=== PATIENT | female | born 1940 | race Caucasian/White ===

== ENCOUNTER 2023-09-25 00:46 | Inpatient (IN) | payer MEDICARE ==
[2023-09-25] MEDS ORDERED: ENALAPRILAT 1.25 MG/ML 1 ML VIAL IVP STA (00:56)
[2023-09-25] MEDS ORDERED: MORPHINE SULFATE 2 MG/ML SYRINGE IVP STA (00:56)
[2023-09-25] MEDS ORDERED: SODIUM CHLORIDE 0.9% 1,000 ML IV STA (00:56)
[2023-09-25] MEDS ORDERED: IPRATROPIUM-ALBUTEROL 3 ML NEB INHALATION STA (00:56)
--- NOTE | 2023-09-25 00:58 | ED ---
SOB HPI - General Chief Complaint: Shortness of Breath Stated Complaint: Chest pain, SOB Time Seen by Provider: 09/25/23 00:48 Source: EMS, RN notes reviewed, old records reviewed, Caregiver Mode of arrival: EMS Limitations: altered mental status - History of Present Illness Initial Comments: This is a 3-year-old female DF for severe and significant shortness of breath. Said about 2 hours prior to arrival patient presents with persistent shortness of breath here in the emergency department patient is unable to provide history history obtained by EMS and patient's family 72 hours prior to arrival patient shortness of breath surgery become severe as she then began to have decreasing mental status MD Complaint: shortness of breath, anxiety -: hour(s) (2) Severity: severe Severity scale (1-10): 10 Quality: dull Consistency: constant Improves With: nothing Worsens With: nothing Known History Of: congestive heart failure Context: recent URI, recent illness Associated Symptoms: chest pain Treatments Prior to Arrival: none - Related Data Home Medications Medication Instructions Recorded Confirmed Acetaminophen Tab [Tylenol Tab] 1,000 mg PO TID 09/25/23 09/25/23 Bumetanide [Bumex] 1 mg PO DAILY 09/25/23 09/25/23 Fish Oil(Unknown Dose) 1 cap PO DAILY 09/25/23 09/25/23 Gabapentin 600 mg PO TID 09/25/23 09/25/23 Potassium Chloride ER [K-Dur 10] 10 meq PO BID 09/25/23 09/25/23 Vitamin D(Unknown Dose) 1 tab PO DAILY 09/25/23 09/25/23 carvediloL [Coreg] 25 mg PO BID 09/25/23 09/25/23 lisinopriL [Prinivil] 5 mg PO DAILY PRN 09/25/23 09/25/23 metOLazone [Zaroxolyn] 2.5 mg PO MOWEFR 09/25/23 09/25/23 Allergies Allergy/AdvReac Type Severity Reaction Status Date / Time duloxetine [From Cymbalta] AdvReac Hallucinati Verified 09/25/23 15:06 ons Review of Systems ROS Statement: Those systems with pertinent positive or pertinent negative responses have been documented in the HPI. ROS Other: All systems not noted in ROS Statement are negative. Past Medical History Past Medical History: Hypertension General Exam Limitations: altered mental status General appearance: alert, anxious, in distress Head exam: Present: atraumatic, normocephalic, normal inspection Eye exam: Present: normal appearance, PERRL, EOMI. Absent: scleral icterus, conjunctival injection, periorbital swelling ENT exam: Present: normal exam, mucous membranes moist Neck exam: Present: normal inspection. Absent: tenderness, meningismus, lymphadenopathy Respiratory exam: Present: respiratory distress, wheezes, accessory muscle use, decreased breath sounds, prolonged expiratory. Absent: rales, rhonchi, stridor Cardiovascular Exam: Present: tachycardia, irregular rhythm, normal heart sounds. Absent: systolic murmur, diastolic murmur, rubs, gallop, clicks GI/Abdominal exam: Present: soft, normal bowel sounds. Absent: distended, tenderness, guarding, rebound, rigid Extremities exam: Present: normal inspection, full ROM, normal capillary refill. Absent: tenderness, pedal edema, joint swelling, calf tenderness Back exam: Present: normal inspection Neurological exam: Present: alert, oriented X3, CN II-XII intact Psychiatric exam: Present: normal affect, normal mood Skin exam: Present: warm, dry, intact, normal color. Absent: rash Course Vital Signs 09/25/23 09/25/23 09/25/23 00:49 01:00 01:13 Temperature Pulse Rate 140 H 122 H Respiratory 33 H 25 H Rate Blood Pressure 194/102 170/110 O2 Sat by Pulse 99 100 Oximetry Fraction of 100 Inspired Oxygen (FIO2) 09/25/23 09/25/23 09/25/23 01:16 01:37 01:48 Temperature Pulse Rate 106 H 94 89 Respiratory 25 H Rate Blood Pressure 146/92 O2 Sat by Pulse 100 Oximetry Fraction of Inspired Oxygen (FIO2) 09/25/23 09/25/23 09/25/23 02:09 02:49 03:16 Temperature Pulse Rate 91 75 81 Respiratory 20 22 Rate Blood Pressure 83/56 95/55 96/62 O2 Sat by Pulse 99 100 Oximetry Fraction of Inspired Oxygen (FIO2) 09/25/23 09/25/23 09/25/23 04:00 06:00 07:23 Temperature Pulse Rate 71 75 67 Respiratory 18 18 Rate Blood Pressure 116/77 106/72 O2 Sat by Pulse 100 100 Oximetry Fraction of 80 Inspired Oxygen (FIO2) 01/04/1109/25/23 09/25/23 07:34 08:45 09:32 Temperature 97.4 F L Pulse Rate 65 71 Respiratory 20 Rate Blood Pressure 112/82 O2 Sat by Pulse 98 Oximetry Fraction of 60 Inspired Oxygen (FIO2) 09/25/23 09/25/23 09/25/23 10:05 10:34 11:05 Temperature Pulse Rate 64 71 67 Respiratory 18 20 12 Rate Blood Pressure 114/77 120/62 127/69 O2 Sat by Pulse 100 100 100 Oximetry Fraction of Inspired Oxygen (FIO2) 09/25/23 09/25/23 09/25/23 11:29 11:39 12:00 Temperature Pulse Rate 75 71 62 Respiratory 14 Rate Blood Pressure 129/89 O2 Sat by Pulse 99 Oximetry Fraction of 40 Inspired Oxygen (FIO2) 09/25/23 09/25/23 09/25/23 12:45 13:19 13:20 Temperature 97.0 F L Pulse Rate 83 62 Respiratory 12 17 Rate Blood Pressure 130/77 114/69 O2 Sat by Pulse 98 96 98 Oximetry Fraction of Inspired Oxygen (FIO2) 09/25/23 09/25/23 09/25/23 14:18 15:28 15:30 Temperature 97.4 F L Pulse Rate 74 72 86 Respiratory 18 16 Rate Blood Pressure 127/88 124/71 O2 Sat by Pulse 95 92 L Oximetry Fraction of Inspired Oxygen (FIO2) 09/25/23 09/25/23 09/25/23 15:44 16:15 17:13 Temperature 97.8 F Pulse Rate 76 72 93 Respiratory 16 16 Rate Blood Pressure 103/70 128/90 O2 Sat by Pulse 96 96 Oximetry Fraction of Inspired Oxygen (FIO2) 09/25/23 09/25/23 09/25/23 18:20 19:24 20:25 Temperature 97.9 F Pulse Rate 84 89 81 Respiratory 17 17 16 Rate Blood Pressure 122/61 134/98 116/69 O2 Sat by Pulse 97 97 96 Oximetry Fraction of Inspired Oxygen (FIO2) 09/25/23 09/25/23 09/25/23 21:28 22:52 23:35 Temperature Pulse Rate 74 87 92 Respiratory 17 18 Rate Blood Pressure 115/80 112/71 O2 Sat by Pulse Oximetry Fraction of Inspired Oxygen (FIO2) 09/25/23 09/26/23 09/26/23 23:57 00:08 01:53 Temperature Pulse Rate 79 65 108 H Respiratory 19 Rate Blood Pressure 99/60 O2 Sat by Pulse Oximetry Fraction of Inspired Oxygen (FIO2) 09/26/23 09/26/23 09/26/23 03:08 04:04 04:22 Temperature Pulse Rate 103 H 82 95 Respiratory 19 19 Rate Blood Pressure 116/81 124/70 O2 Sat by Pulse 97 97 Oximetry Fraction of Inspired Oxygen (FIO2) 09/26/23 09/26/23 09/26/23 04:34 05:44 06:28 Temperature 97.3 F L Pulse Rate 88 91 95 Respiratory 19 20 Rate Blood Pressure 123/83 136/80 O2 Sat by Pulse 100 Oximetry Fraction of Inspired Oxygen (FIO2) 09/26/23 09/26/23 09/26/23 08:30 08:43 08:52 Temperature 97.7 F Pulse Rate 92 91 94 Respiratory 20 Rate Blood Pressure 122/68 O2 Sat by Pulse 96 96 Oximetry Fraction of Inspired Oxygen (FIO2) 09/26/23 09/26/23 09/26/23 11:10 12:04 12:14 Temperature Pulse Rate 93 89 91 Respiratory 18 Rate Blood Pressure 135/78 O2 Sat by Pulse 98 Oximetry Fraction of Inspired Oxygen (FIO2) 09/26/23 09/26/23 09/26/23 14:06 15:01 15:15 Temperature Pulse Rate 83 97 97 Respiratory 20 Rate Blood Pressure 133/51 O2 Sat by Pulse 93 L Oximetry Fraction of Inspired Oxygen (FIO2) 09/26/23 16:38 Temperature 98.2 F Pulse Rate 101 H Respiratory 20 Rate Blood Pressure 111/90 O2 Sat by Pulse 94 L Oximetry Fraction of Inspired Oxygen (FIO2) - Reevaluation(s) Reevaluation #1: 09/25/23 02:46 medical record is reviewed Reevaluation #2: 09/25/23 02:46 Significant improvement on BiPAP with movement and respirations here in the ER Reevaluation #3: 09/25/23 02:46 Patient will maintain on BiPAP Reevaluation #4: 09/25/23 02:46 Was pt. sent in by a medical professional or institution (, PA, CERTIFIED ADDICTION COUNSELOR, urgent care, hospital, or fpc...) When possible be specific @ -no Did you speak to anyone other than the patient for history (EMS, parent, family, police, friend...)? What history was obtained from this source @ -no Did you review nursing and triage notes (agree or disagree)? Why? @ -agree Are old charts reviewed (outside hosp., previous admission, EMS record, old EKG, old radiological studies, urgent care reports/EKG's, fpc records)? Report findings @ -yes Differential Diagnosis (chest pain, altered mental status, abdominal pain women, abdominal pain men, vaginal bleeding, weakness, fever, dyspnea, syncope, headache, dizziness, GI bleed, back pain, seizure, CVA, palpatations, mental health, musculoskeletal)? @ -prior EKG interpreted by me (3pts min.). @ -yes X-rays interpreted by me (1pt min.). @ -yes positive for pulmonary edema CT interpreted by me (1pt min.). @ -no U/S interpreted by me (1pt. min.). @ -no What testing was considered but not performed or refused? (CT, X-rays, U/S, labs)? Why? @ -none What meds were considered but not given or refused? Why? @ -none Did you discuss the management of the patient with other professionals (professionals i.e. , PA, CERTIFIED ADDICTION COUNSELOR, lab, RT, psych nurse, social science research assistant, compliance nurse, teacher, college service officer, manager rn case)? Give summary @ -no Was smoking cessation discussed for >3mins.? @ -no Was critical care preformed (if so, how long)? @ -yes31 Were there social determinants of health that impacted care today? How? (Homelessness, low income, unemployed, alcoholism, drug addiction, transportation, low edu. Level, literacy, decrease access to med. care, shelter, rehab)? @ -none Was there de-escalation of care discussed even if they declined (Discuss DNR or withdrawal of care, Hospice)? DNR status @ -no What co-morbidities impacted this encounter? (DM, HTN, Smoking, COPD, CAD, Cancer, CVA, ARF, Chemo, Hep., AIDS, mental health diagnosis, sleep apnea, morbid obesity)? @ -none Was patient admitted / discharged? Hospital course, mention meds given and route, prescriptions, significant lab abnormalities, going to OR and other pertinent info. @ - 83 female to the ED c.o ams, sob, HTN, weakness of sudden onet tonight, improved BP w meds and on BIPAP, ok for admission. Admitted Undiagnosed new problem with uncertain prognosis? @ -no Drug Therapy requiring intensive monitoring for toxicity (Heparin, Nitro, Insulin, Cardizem)? @ -no Were any procedures done? @ -no Diagnosis/symptom? @ -Acute hypertensive emergency with hypoxia atrial fibrillation with RVR with respiratory failure Acute, or Chronic, or Acute on Chronic? @ -Acute Uncomplicated (without systemic symptoms) or Complicated (systemic symptoms)? @ -Complicated Side effects of treatment? @ -no Exacerbation, Progression, or Severe Exacerbation? @ -exacerbation Poses a threat to life or bodily function? How? (Chest pain, USA, NM, pneumonia, PE, COPD, DKA, ARF, appy, cholecystitis, CVA, Diverticulitis, Homicidal, Suicidal, threat to staff... and all critical care pts) @ -yes Reevaluation #5: 09/25/23 02:46 Differential Dyspnea: Coronary syndrome, arrhythmia, tamponade, asthma, COPD, pulmonary embolism, pneumonia, pneumothorax, pulmonary effusion, anaphylaxis, diabetic ketoacidosis, flailed chest, pulmonary contusion, diaphragmatic rupture, anemia, neuromuscular, this is not meant to be an all-inclusive list. - Consultations Consultation #1: Spoke with sound who agrees to admit this patient Medical Decision Making - Medical Decision Making 83 female to the ED c.o ams, sob, HTN, weakness of sudden onset tonight, questionable atrial fibrillation with RVR, consult cardiology, improved BP w meds and on BIPAP, ok for admission. - Lab Data Result diagrams: 09/29/23 08:22 10/03/23 06:48 Lab Results 09/25/23 09/25/23 09/25/23 Range/Units 00:53 00:53 00:53 WBC 12.3 H (3.8-10.6) k/uL RBC 3.98 (3.80-5.40) m/uL Hgb 12.6 (11.4-16.0) gm/dL Hct 40.1 (34.0-46.0) % MCV 100.9 H (80.0-100.0) fL MCH 31.7 (25.0-35.0) pg MCHC 31.5 (31.0-37.0) g/dL RDW 13.5 (11.5-15.5) % Plt Count 295 (150-450) k/uL MPV 8.2 Neutrophils % 75 % Lymphocytes % 16 % Monocytes % 5 % Eosinophils % 2 % Basophils % 1 % Neutrophils # 9.3 H (1.3-7.7) k/uL Lymphocytes # 1.9 (1.0-4.8) k/uL Monocytes # 0.6 (0-1.0) k/uL Eosinophils # 0.2 (0-0.7) k/uL Basophils # 0.1 (0-0.2) k/uL Hypochromasia Marked PT 11.1 (10.0-12.5) sec INR 1.0 (<1.2) APTT 20.7 L (22.0-30.0) sec Sodium 140 (137-145) mmol/L Potassium 4.9 (3.5-5.1) mmol/L Chloride 104 (98-107) mmol/L Carbon Dioxide 27 (22-30) mmol/L Anion Gap 9 mmol/L BUN 21 H (7-17) mg/dL Creatinine 0.83 (0.52-1.04) mg/dL Est GFR (CKD-EPI)AfAm 76 (>60 ml/min/1.73 sqM) Est GFR (CKD-EPI)NonAf 66 (>60 ml/min/1.73 sqM) Glucose 209 H (74-99) mg/dL POC Glucose (mg/dL) (70-110) mg/dL POC Glu [employer] ID Plasma Lactic Acid Adrian (0.7-2.0) mmol/L Calcium 8.8 (8.4-10.2) mg/dL Magnesium 2.1 (1.6-2.3) mg/dL Total Bilirubin 0.7 (0.2-1.3) mg/dL AST 32 (14-36) U/L ALT 31 (4-34) U/L Alkaline Phosphatase 71 (38-126) U/L Troponin I (0.000-0.034) ng/mL NT-Pro-B Natriuret Pep 7180 pg/mL Total Protein 6.8 (6.3-8.2) g/dL Albumin 3.9 (3.5-5.0) g/dL 01/07/24 01/07/24 01/07/24 Range/Units 00:53 00:53 01:13 WBC (3.8-10.6) k/uL RBC (3.80-5.40) m/uL Hgb (11.4-16.0) gm/dL Hct (34.0-46.0) % MCV (80.0-100.0) fL MCH (25.0-35.0) pg MCHC (31.0-37.0) g/dL RDW (11.5-15.5) % Plt Count (150-450) k/uL MPV Neutrophils % % Lymphocytes % % Monocytes % % Eosinophils % % Basophils % % Neutrophils # (1.3-7.7) k/uL Lymphocytes # (1.0-4.8) k/uL Monocytes # (0-1.0) k/uL Eosinophils # (0-0.7) k/uL Basophils # (0-0.2) k/uL Hypochromasia PT (10.0-12.5) sec INR (<1.2) APTT (22.0-30.0) sec Sodium (137-145) mmol/L Potassium (3.5-5.1) mmol/L Chloride (98-107) mmol/L Carbon Dioxide (22-30) mmol/L Anion Gap mmol/L BUN (7-17) mg/dL Creatinine (0.52-1.04) mg/dL Est GFR (CKD-EPI)AfAm (>60 ml/min/1.73 sqM) Est GFR (CKD-EPI)NonAf (>60 ml/min/1.73 sqM) Glucose (74-99) mg/dL POC Glucose (mg/dL) 203 H (70-110) mg/dL POC Glu [employer]fitter ID Ankush Jarrell Plasma Lactic Acid Adrian 1.5 (0.7-2.0) mmol/L Calcium (8.4-10.2) mg/dL Magnesium (1.6-2.3) mg/dL Total Bilirubin (0.2-1.3) mg/dL AST (14-36) U/L ALT (4-34) U/L Alkaline Phosphatase (38-126) U/L Troponin I 0.014 (0.000-0.034) ng/mL NT-Pro-B Natriuret Pep pg/mL Total Protein (6.3-8.2) g/dL Albumin (3.5-5.0) g/dL - EKG Data -: EKG Interpreted by Me (EKG is uncertain 129 tachycardic QRS 161 QTc 417) - Radiology Data Radiology results: report reviewed (CXR is positive for CHD and Pulmonary edema), image reviewed Critical Care Time Critical Care Time: Yes Total Critical Care Time: 31 Disposition Clinical Impression: Congestive heart failure, Acute pulmonary edema, Hypertensive emergency, Acute respiratory failure, Hypoxia, Systolic congestive heart failure Disposition: ADMITTED IP TO THIS [facility] Condition: Critical Is patient prescribed a controlled substance at d/c from ED?: No Time of Disposition: 02:40
[2023-09-25 01:15] LABS: Glucose,Whole Blood 203 mg/dL (70-110)
[2023-09-25 01:43] LABS: ALT 31 U/L (4-34); AST 32 U/L (14-36); African American GFR (CKD) 76 (>60 ml/min/1.73 sqM); Albumin 3.9 g/dL (3.5-5.0); Alkaline Phosphatase 71 U/L (38-126); Anion Gap 9 mmol/L; Basophils # (A) 0.1 k/uL (0-0.2); Basophils % (A) 1 %; Blood Urea Nitrogen 21 mg/dL (7-17); Calcium 8.8 mg/dL (8.4-10.2); Carbon Dioxide 27 mmol/L (22-30); Chloride 104 mmol/L (98-107); Eosinophils # (A) 0.2 k/uL (0-0.7); Eosinophils % (A) 2 %; Glucose 209 mg/dL (74-99); HCT 40.1 % (34.0-46.0); HGB 12.6 gm/dL (11.4-16.0); Hypochromasia Marked; Lymphocytes # (A) 1.9 k/uL (1.0-4.8); Lymphocytes % (A) 16 %; MCH 31.7 pg (25.0-35.0); MCHC 31.5 g/dL (31.0-37.0); MCV 100.9 fL (80.0-100.0); Magnesium 2.1 mg/dL (1.6-2.3); Mean Platelet Volume 8.2; Monocytes # (A) 0.6 k/uL (0-1.0); Monocytes % (A) 5 %; Neutrophils # (A) 9.3 k/uL (1.3-7.7); Neutrophils % (A) 75 %; Non-African American GFR(CKD) 66 (>60 ml/min/1.73 sqM); Platelet Count 295 k/uL (150-450); Potassium 4.9 mmol/L (3.5-5.1); RBC 3.98 m/uL (3.80-5.40); RDW 13.5 % (11.5-15.5); Sodium 140 mmol/L (137-145); Total Bilirubin 0.7 mg/dL (0.2-1.3); Total Protein 6.8 g/dL (6.3-8.2); WBC 12.3 k/uL (3.8-10.6)
[2023-09-25 01:52] LABS: NT-Pro-B-Type Natriuretic Pept 7180 pg/mL
--- NOTE | 2023-09-25 02:05 | XR ---
EXAM: XR Chest, 1 View CLINICAL HISTORY: ITS.REASON XR Reason: sob TECHNIQUE: Frontal view of the chest. COMPARISON: No relevant prior studies available. FINDINGS: Lungs: Bilateral interstitial opacities. Pleural space: Small pleural effusions. No pneumothorax. Heart: Cardiomegaly and vascular congestion. Bones/joints: No acute fracture. No dislocation. IMPRESSION: 1. Findings suggestive of congestive heart failure. There is cardiomegaly, vascular congestion, and bilateral interstitial opacities suggesting pulmonary edema. 2. Small pleural effusions bilaterally.
[2023-09-25 02:14] LABS: Prothrombin Time 11.1 sec (10.0-12.5)
[2023-09-25 02:20] LABS: Partial Thromboplastin Time 20.7 sec (22.0-30.0)
[2023-09-25] MEDS ORDERED: NALOXONE 0.4 MG/ML 1 ML VIAL IV PRN (02:34)
[2023-09-25] MEDS ORDERED: FUROSEMIDE 10 MG/ML 4 ML VIAL IV SCH (02:45)
[2023-09-25] MEDS: MORPHINE SULFATE 4 MG/ML SYRINGE IV PRN ×4 (03:17→23:36)
[2023-09-25] MEDS ORDERED: LORazepam 2 MG/ML INJ IV STA (04:12)
[2023-09-25] MEDS ORDERED: HEPARIN SODIUM 1,000 UN/ML (10ML VL) IV ONE (05:02)
[2023-09-25] MEDS ORDERED: HEPARIN SODIUM 1,000 UN/ML (10ML VL) IV PRN ×2 (05:02→13:49)
[2023-09-25] MEDS ORDERED: LORazepam 2 MG/ML INJ IV PRN (05:13)
--- NOTE | 2023-09-25 05:14 | P.HPIM ---
History of Present Illness H&P Date: 09/25/23 Chief Complaint: shortness of breath 83 year old female with Hypertension , CHF unknown EF patient unable to provide any meaningful history due to agitation and confusion history obtained by talking to manisha at bedside patient was at her baseline status of health up until 2 days ago , when she started having some SOB , unknown if there was orthpnea or PNDs. however, today , the patient moved to new house to live with her niece, when suddenly started having severe SOB about 2 hours prior to arrivl to the ED. no reported fever, worsening cough from baseline, bleeding , chest pain , abd pain , nausea or vomiting per niece, the patient is compliant with her meds, and diuretics. however when she went home today , she found her struggling with breathing and drenched with sweat. she does have chronic bilateral leg edema which is chronic . unknown weight changes, or if any increase water retention upon arrival to the ED she was noted to have elevated blood pressure , and based on CXR findings, she was suspected to be having hypertensive emergency she was given diurectics and placed on BIpap review of systems unable to obtain on exam Constitutional: agitated confused, on bipap Eyes: Anicteric sclerae, moist conjunctiva, resists opening eyes, both pupils are round and equal ENMT: NC/AT Lungs: decrease breath sounds at lung bases with rhonci on Bi[place], agitated Cardiovascular: Heart regular in rate and rhythm, No murmurs, gallops, or rubs +2 bilateral peripheral edema Abdominal: Soft Nontender, no guarding, rebound or rigidity Abdomen moving with respiration Normoactive bowel sounds No hepatomegaly, No splenomegaly Extremities: No digital cyanosis No clubbing Pedal pulses intact and symmetrical Radial pulses intact and symmetrical No calf tenderness Psychiatric: confused awake, agitated, uncooperative Neuro unable to perform , resists care Past Medical History Past Medical History: Hypertension Medications and Allergies Allergies Allergy/AdvReac Type Severity Reaction Status Date / Time No Known Allergies Allergy Verified 09/25/23 00:53 Physical Exam Vitals: Vital Signs Pulse Resp BP Pulse Ox FiO2 09/25/23 03:16 81 96/62 09/25/23 02:49 75 22 95/55 100 09/25/23 02:09 91 20 83/56 99 09/25/23 01:48 89 09/25/23 01:37 94 09/25/23 01:16 106 H 25 H 146/92 100 09/25/23 01:13 122 H 25 H 170/110 100 09/25/23 01:00 100 09/25/23 00:49 140 H 33 H 194/102 99 Intake and Output 09/24/23 09/24/23 09/25/23 14:59 22:59 06:59 Other: Weight 113.398 kg Results CBC & Chem 7: 09/25/23 00:53 09/25/23 00:53 Labs: Abnormal Lab Results - Last 24 Hours (Table) 09/25/23 09/25/23 09/25/23 Range/Units 00:53 00:53 00:53 WBC 12.3 H (3.8-10.6) k/uL MCV 100.9 H (80.0-100.0) fL Neutrophils # 9.3 H (1.3-7.7) k/uL APTT 20.7 L (22.0-30.0) sec BUN 21 H (7-17) mg/dL Glucose 209 H (74-99) mg/dL POC Glucose (mg/dL) (70-110) mg/dL 09/25/23 Range/Units 01:13 WBC (3.8-10.6) k/uL MCV (80.0-100.0) fL Neutrophils # (1.3-7.7) k/uL APTT (22.0-30.0) sec BUN (7-17) mg/dL Glucose (74-99) mg/dL POC Glucose (mg/dL) 203 H (70-110) mg/dL Assessment and Plan Assessment: 83 year old female with hypertension , CHF unknown LVEF, coming in due to sudden SOB, profuse sweating, found to have elevated BP and HR,I discussed the case with eD doc and I accepted the admission for pulmonary edema due to underlying CHF, hypertensive emergency , rule out ACS. with anticipated length of stay > 2 midnights acute metabolic encephalopathy pulmonary edema secondary to hypertensive emergency vs acute on chronic chf exacerbation NSTEMI rule out ACS EKG showing bigeminy , no acute ST changes photo journalist trend trops elevated BNP 7180 trops 0.014 --> 0.07 cardiology consult heparin gtt for possible ACS bipap support IV diuresis with lasix 40 mg IVP Q8hr daily weight fall precautions ativan prn for agitation 0.5 mgIVP TID patient received enalapril one time dose in the ED , currently BP is borderline low normal , continue to monitor verify home meds check echo Na 140, K 4.9 unremarkable BUN 21 cr 0.83 WBC 12, Hgb 12.6 Code status DNR DVT PPX on heparin gtt for possible NSTEMI protonix IVP 40 mg daily
[2023-09-25] MEDS ORDERED: HEPARIN SOD,PORK IN 0.45% NACL 25,000 UNIT in 0.45% NACL 1 250ML.BAG IV SCH (05:15)
[2023-09-25] MEDS: IPRATROPIUM-ALBUTEROL 3 ML NEB INHALATION SCH ×6 (05:58→23:57)
[2023-09-25 08:13] LABS: Basophils % (A) 0 %; Eosinophils % (A) 0 %; HCT 36.6 % (34.0-46.0); HGB 11.2 gm/dL (11.4-16.0); Hypochromasia Marked; Lymphocytes # (A) 0.9 k/uL (1.0-4.8); Lymphocytes % (A) 7 %; MCH 31.5 pg (25.0-35.0); MCHC 30.7 g/dL (31.0-37.0); MCV 102.8 fL (80.0-100.0); Macrocytosis Slight; Mean Platelet Volume 8.9; Monocytes # (A) 0.8 k/uL (0-1.0); Monocytes % (A) 6 %; Neutrophils # (A) 10.3 k/uL (1.3-7.7); Neutrophils % (A) 85 %; Platelet Count 164 k/uL (150-450); RBC 3.56 m/uL (3.80-5.40); RDW 13.8 % (11.5-15.5); WBC 12.2 k/uL (3.8-10.6)
[2023-09-25] MEDS: FUROSEMIDE 10 MG/ML 4 ML VIAL IV SCH ×2 (09:31→21:18)
[2023-09-25] MEDS: PANTOPRAZOLE 40 MG/10 ML VIAL IV SCH (09:33)
--- NOTE | 2023-09-25 13:05 | P.CRDCN ---
History of Present Illness Consult date: 09/25/23 Consult reason: congestive heart failure History of present illness: This is Paul Sargent NP, I'm dictating on behalf of Dr. Varghese's H&P and A&P The patient was interviewed and examined. HPI: Patient is an 83-year-old female with history of hypertension, congestive heart failure, who presented to the hospital via the family secondary to c omplaining of shortness of breath. Patient is a recent [place] city to the area, and her niece who was at the bedside states that she just moved into the area 2 days ago. She reports that when they came to check on her yesterday, she was demonstrating significant shortness of breath, as well as decreased mentation. She was able to tell him that she's been feeling short of breath for the last couple of days. They at that time called EMS and had the patient transported the hospital for evaluation. Niece reports that the patient has been compliant with her medications. In the emergency department the patient was found to be somewhat agitated and confused, and required BiPAP to be placed to maintain adequate oxygen saturation and to calm her breathing. Patient was found to have a significantly elevated blood pressure at 194/102 on arrival. Patient was found to be in atrial fibrillation on EKG. Patient was started on Lasix, heparin, and was given one dose of enalapril IV which did bring her heart rate down into more controlled rate, as well as controlling her blood pressure much better. This morning upon evaluation the patient is found in the bed, confused and combative. The family is at the bedside who reiterates the emergency department storied. Patient is noted to have chronic leg edema and 2+. Vital signs are much more controlled at this time, blood pressure is within normal limits, heart rate is controlled on the monitor. ROS: Unable to assess due to mental status EXAMINATION: GENERAL: Confused, somnolent, and in no acute distress. NECK: Supple without JVD or thyromegaly. LUNGS: Breath sounds demonstrate crackles in the bilateral bases, left greater than right. Respiration equal and unlabored. No wheezes, rales or rhonchi. HEART: Regular rate and irregular rhythm without murmurs, rubs or gallops. S1 and S2 heard. EXTREMITIES: 2+ edema bilateral lower extremities. No clubbing or cyanosis. Peripheral pulses intact and strong. REVIEW OF LABS, ECG & MEDICAL DATA: LABS: White count 12.2, hemoglobin 11.2, platelets 164, d-dimer 3.83, sodium 140, potassium 4.9, BUN 21, creatinine 0.83, calcium 8.8, magnesium 2.1, troponin-0.014, 0.071, 0.074, 0.064, BNP 7,180 EKG: Atrial fibrillation with rapid ventricular response IMAGING: Chest x-ray dated 09/25/2023 demonstrates findings suggestive of congestive heart failure, there is cardiomegaly, vascular congestion, and bilateral interstitial opacities suggesting pulmonary edema, small pleural effusions bilaterally. VITALS: Temp 97.4, pulse 71, respirations 20, blood pressure 112/82, O2 saturation 98% on BiPAP IMPRESSION: 1. Atrial fibrillation with rapid ventricular response, new onset 2. Pneumonia versus congestive heart failure 3. Altered mental status 4. Acute hypoxic respiratory failure, on BiPAP PLAN: Check d-dimer. If elevated would recommend CT angiogram of the chest. Would consider pneumonia versus CHF. Chest x-ray is indicative of congestive heart failure, but also demonstrates bilateral opacities that could be pneumonia. Patient does have an elevated white blood cell count. This could also be the mechanism causing the altered mental status. Recommend CT of the head for the altered mental status. Change Lasix to 40 mg every 12 hours. Further recommendations based on patient's clinical course. Thank you for the consult and allowing us to participate in the care of this patient. Past Medical History Past Medical History: Hypertension Medications and Allergies Home Medications Medication Instructions Recorded Confirmed Type Acetaminophen Tab [Tylenol Tab] 1,000 mg PO TID 09/25/23 09/25/23 History DULoxetine HCL [Cymbalta] 20 mg PO BID 09/25/23 09/25/23 History Gabapentin 600 mg PO TID PRN 09/25/23 09/25/23 History Potassium Chloride ER [K-Dur 10] 10 meq PO BID 09/25/23 09/25/23 History carvediloL [Coreg] 25 mg PO BID 09/25/23 09/25/23 History lisinopriL [Prinivil] 10 mg PO DAILY 09/25/23 09/25/23 History Allergies Allergy/AdvReac Type Severity Reaction Status Date / Time No Known Allergies Allergy Verified 09/25/23 12:23 Physical Exam Vitals: Vital Signs Temp Pulse Resp BP Pulse Ox FiO2 09/25/23 11:39 71 09/25/23 11:29 75 40 09/25/23 11:05 67 12 127/69 100 09/25/23 10:34 71 20 120/62 100 09/25/23 10:05 64 18 114/77 100 09/25/23 09:32 97.4 F L 71 20 112/82 98 09/25/23 08:45 60 09/25/23 07:34 65 09/25/23 07:23 67 80 09/25/23 06:00 75 18 106/72 100 09/25/23 04:00 71 18 116/77 100 09/25/23 03:16 81 96/62 09/25/23 02:49 75 22 95/55 100 09/25/23 02:09 91 20 83/56 99 09/25/23 01:48 89 09/25/23 01:37 94 09/25/23 01:16 106 H 25 H 146/92 100 09/25/23 01:13 122 H 25 H 170/110 100 09/25/23 01:00 100 09/25/23 00:49 140 H 33 H 194/102 99 Intake and Output 09/24/23 09/25/23 09/25/23 22:59 06:59 14:59 Output Total 40 Balance -40 Output: Urine 40 Uretheral ([place]) 40 Other: Weight 113.398 kg Results 09/25/23 06:50 09/25/23 00:53 Cardiac Enzymes 09/25/23 09/25/23 09/25/23 Range/Units 00:53 00:53 03:42 AST 32 (14-36) U/L Troponin I 0.014 0.071 H* (0.000-0.034) ng/mL 09/25/23 09/25/23 Range/Units 06:50 09:55 AST (14-36) U/L Troponin I 0.074 H* 0.064 H* (0.000-0.034) ng/mL Coagulation 09/25/23 09/25/23 Range/Units 00:53 09:55 PT 11.1 (10.0-12.5) sec APTT 20.7 L 41.7 H (22.0-30.0) sec CBC 09/25/23 09/25/23 Range/Units 00:53 06:50 WBC 12.3 H 12.2 H (3.8-10.6) k/uL RBC 3.98 3.56 L (3.80-5.40) m/uL Hgb 12.6 11.2 L (11.4-16.0) gm/dL Hct 40.1 36.6 (34.0-46.0) % Plt Count 295 164 (150-450) k/uL Comprehensive Metabolic Panel 09/25/23 Range/Units 00:53 Sodium 140 (137-145) mmol/L Potassium 4.9 (3.5-5.1) mmol/L Chloride 104 (98-107) mmol/L Carbon Dioxide 27 (22-30) mmol/L BUN 21 H (7-17) mg/dL Creatinine 0.83 (0.52-1.04) mg/dL Glucose 209 H (74-99) mg/dL Calcium 8.8 (8.4-10.2) mg/dL AST 32 (14-36) U/L ALT 31 (4-34) U/L Alkaline Phosphatase 71 (38-126) U/L Total Protein 6.8 (6.3-8.2) g/dL Albumin 3.9 (3.5-5.0) g/dL Current Medications Generic Name Dose Route Start Last Admin Trade Name Freq PRN Reason Stop Dose Admin Acetaminophen 650 mg 09/25/23 02:34 Acetaminophen Tab 325 Mg Tab PO Q6HR PRN Mild Pain or Fever > 100.5 Albuterol/Ipratropium 3 ml 09/25/23 04:00 09/25/23 11:29 Ipratropium-Albuterol 3 Ml Neb INHALATION 3 ml RT-Q4H KASI Administration Furosemide 40 mg 09/25/23 09:00 09/25/23 09:31 Furosemide 10 Mg/Ml 4 Ml Vial IV 40 mg Q12HR KASI Administration Heparin Sodium (Porcine) 0 unit 09/25/23 05:02 Heparin Sodium 1,000 Un/Ml (10ml Vl) IV PER PROTOCOL PRN Low PTT Protocol Sodium Chloride 1,000 mls @ 20 mls/hr 09/25/23 00:56 09/25/23 01:11 Saline 0.9% IV 09/26/23 00:55 20 mls/hr .Q24H STA Administration Heparin Sodium/Sodium Chloride 250 mls @ 9.99 mls/hr 09/25/23 05:15 09/25/23 05:11 25,000 unit/ Sodium Chloride IV 8.81 units/kg/hr .Q24H KASI 9.99 mls/hr Administration Protocol 8.81 UNITS/KG/HR Lorazepam 0.5 mg 09/25/23 05:13 Lorazepam 2 Mg/Ml Inj IV Q8HR PRN Agitation Morphine Sulfate 4 mg 09/25/23 02:34 09/25/23 03:17 Morphine Sulfate 4 Mg/Ml Syringe IV 4 mg Q4HR PRN Administration Severe Pain (Scale 7 to 10) Naloxone HCl 0.2 mg 09/25/23 02:34 Naloxone 0.4 Mg/Ml 1 Ml Vial IV Q2M PRN Opioid Reversal Pantoprazole Sodium 40 mg 09/25/23 09:00 09/25/23 09:33 Pantoprazole 40 Mg/10 Ml Vial IV 40 mg DAILY KASI Administration Intake and Output 09/24/23 09/25/23 09/25/23 22:59 06:59 14:59 Output Total 40 Balance -40 Output: Urine 40 Uretheral ([place]) 40 Other: Weight 113.398 kg 09/25/23 06:50 09/25/23 00:53
--- NOTE | 2023-09-25 13:45 | CT ---
EXAMINATION TYPE: CT chest angio for PE DATE OF EXAM: 09/25/2023 COMPARISON: Radiograph 09/25/2023 HISTORY: 83 year-old female shortness of breath, Elevated D-dimer, hypoxia TECHNIQUE: Contiguous axial scanning of the chest performed with IV Contrast, patient injected with 1 00 ml mL of Isovue 300. Coronal/sagittal MIP reconstructions performed. CT DLP: 478.0 mGycm Automated exposure control for dose reduction was used. FINDINGS: Heart is borderline enlarged. Trace pericardial effusion. LAD coronary calcifications and dense jj l annular calcifications are present. No flattening of the interventricular septum though there is re flux of contrast into the hepatic veins. Ectatic ascending aorta 3.7 cm. Bovine configuration to the aortic arch. No thoracic lymphadenopathy by CT size criteria. Large caliber to the main right and left pulmonary arteries measuring up to 2.9 cm suggesting underly ing pulmonary hypertension. There is breathing motion artifact significantly limiting the assessment. No large central pulmonary embolus is seen. No definite lobar branch embolus. However, there does appear to be segmental and sub segmental branch emboli to the basilar right lower lobe, axial images 81 through 85. There is a 7 mm right midlung pulmonary nodule which warrants follow-up. Moderate right and small lef t pleural effusions with prominent adjacent atelectasis in the lower lobes, partial segmental atelect asis basilar left lower lobe. Scattered septal lines in the upper lungs. Mild generalized anasarca change. Visualized upper abdomen shows no gross abnormality. Bones: No osseous destructive process. Breathing motion. IMPRESSION: 1. BREATHING MOTION SIGNIFICANTLY LIMITING THE ASSESSMENT. WE DO NOTE THE EXAM BEING POSITIVE FOR SEG MENTAL AND SUBSEGMENTAL BRANCH EMBOLI TO THE BASILAR RIGHT LOWER LOBE. 2. CARDIOMEGALY, MILD GENERALIZED ANASARCA, PULMONARY HYPERTENSION, MODERATE RIGHT AND SMALL LEFT PLE URAL EFFUSIONS. ADDITIONAL SEPTAL LINES IN THE UPPER LUNGS. CORRELATE FOR CHF WITH PULMONARY VASCULAR CONGESTION. 3. PROMINENT PARTIAL SEGMENTAL ATELECTASIS IN THE BASILAR LOWER LOBES ADJACENT TO THE EFFUSIONS. 4. A 7 MM RIGHT MID LUNG PULMONARY NODULE. THREE-MONTH FOLLOW-UP CT CHEST TO REASSESS. Critical findings called to nurse Lowe in the ER at 1:39pm.
[2023-09-25] MEDS: HEPARIN SOD,PORK IN 0.45% NACL 25,000 UNIT in 0.45% NACL 1 250ML.BAG IV SCH ×2 (13:50→21:15)
[2023-09-26] MEDS: ACETAMINOPHEN TAB 325 MG TAB PO PRN (01:56)
[2023-09-26] MEDS: IPRATROPIUM-ALBUTEROL 3 ML NEB INHALATION SCH ×6 (04:22→23:55)
[2023-09-26] MEDS: MORPHINE SULFATE 4 MG/ML SYRINGE IV PRN ×2 (06:32→11:07)
[2023-09-26 07:51] LABS: Basophils % (A) 0 %; Eosinophils # (A) 0.1 k/uL (0-0.7); Eosinophils % (A) 1 %; HCT 34.8 % (34.0-46.0); HGB 10.9 gm/dL (11.4-16.0); Hypochromasia Marked; Lymphocytes # (A) 0.9 k/uL (1.0-4.8); Lymphocytes % (A) 11 %; MCH 31.8 pg (25.0-35.0); MCHC 31.3 g/dL (31.0-37.0); MCV 101.7 fL (80.0-100.0); Macrocytosis Slight; Mean Platelet Volume 8.3; Monocytes # (A) 0.5 k/uL (0-1.0); Monocytes % (A) 7 %; Neutrophils # (A) 6.4 k/uL (1.3-7.7); Neutrophils % (A) 80 %; Platelet Count 165 k/uL (150-450); RBC 3.43 m/uL (3.80-5.40); RDW 13.7 % (11.5-15.5); WBC 8.1 k/uL (3.8-10.6)
[2023-09-26 08:08] LABS: Prothrombin Time 11.4 sec (10.0-12.5)
[2023-09-26] MEDS: FUROSEMIDE 10 MG/ML 4 ML VIAL IV SCH ×2 (08:37→21:13)
[2023-09-26] MEDS: PANTOPRAZOLE 40 MG/10 ML VIAL IV SCH (08:37)
[2023-09-26] MEDS: carvediloL 12.5 MG TAB PO SCH ×2 (08:37→18:01)
[2023-09-26] MEDS: HEPARIN SOD,PORK IN 0.45% NACL 25,000 UNIT in 0.45% NACL 1 250ML.BAG IV SCH (09:08)
[2023-09-26 09:31] LABS: ALT 43 U/L (4-34); AST 59 U/L (14-36); African American GFR (CKD) 77 (>60 ml/min/1.73 sqM); Albumin 3.5 g/dL (3.5-5.0); Alkaline Phosphatase 68 U/L (38-126); Anion Gap 10 mmol/L; Blood Urea Nitrogen 24 mg/dL (7-17); Calcium 8.8 mg/dL (8.4-10.2); Carbon Dioxide 29 mmol/L (22-30); Chloride 101 mmol/L (98-107); Glucose 74 mg/dL (74-99); Non-African American GFR(CKD) 66 (>60 ml/min/1.73 sqM); Phosphorus 4.4 mg/dL (2.5-4.5); Potassium 4.1 mmol/L (3.5-5.1); Sodium 140 mmol/L (137-145); Total Bilirubin 0.5 mg/dL (0.2-1.3); Total Protein 6.3 g/dL (6.3-8.2)
--- NOTE | 2023-09-26 11:49 | P.PN ---
Subjective HISTORY OF PRESENT ILLNESS: HPI: Patient is an 83-year-old female with history of hypertension, congestive heart failure, who presented to the hospital via the family secondary to complaining of shortness of breath. Patient is a recent transplant from [place] city to the area, and her niece who was at the bedside states that she just moved into the area 2 days ago. She reports that when they came to check on her yesterday, she was demonstrating significant shortness of breath, as well as decreased mentation. She was able to tell him that she's been feeling short of breath for the last couple of days. They at that time called EMS and had the patient transported the hospital for evaluation. Niece reports that the patient has been compliant with her medications. In the emergency department the patient was found to be somewhat agitated and confused, and required BiPAP to be placed to maintain adequate oxygen saturation and to calm her breathing. Patient was found to have a significantly elevated blood pressure at 194/102 on arrival. Patient was found to be in atrial fibrillation on EKG. Patient was st arted on Lasix, heparin, and was given one dose of enalapril IV which did bring her heart rate down into more controlled rate, as well as controlling her blood pressure much better. This morning upon evaluation the patient is found in the bed, confused and combative. The family is at the bedside who reiterates the emergency department storied. Patient is noted to have chronic leg edema and 2+. Vital signs are much more controlled at this time, blood pressure is within normal limits, heart rate is controlled on the monitor. REVIEW OF LABS, ECG & MEDICAL DATA: LABS: White count 12.2, hemoglobin 11.2, platelets 164, d-dimer 3.83, sodium 140, potassium 4.9, BUN 21, creatinine 0.83, calcium 8.8, magnesium 2.1, troponin-0.014, 0.071, 0.074, 0.064, BNP 7,180 EKG: Atrial fibrillation with rapid ventricular response IMAGING: Chest x-ray dated 09/25/2023 demonstrates findings suggestive of c ongestive heart failure, there is cardiomegaly, vascular congestion, and bilateral interstitial opacities suggesting pulmonary edema, small pleural effusions bilaterally. VITALS: Temp 97.4, pulse 71, respirations 20, blood pressure 112/82, O2 saturation 98% on BiPAP 09/26/2023 Patient examined this morning at the bedside in the emergency room. Patient currently denies chest pain or pressure. She reports mild shortness of breath. She underwent CTA yesterday revealing segmental and subsegmental ranch pulmonary emboli to the basilar right lower lobe, cardiomegaly, pulmonary hypertension, moderate right and small left pleural effusions. She was started on IV heparin. Bedside telemetry reveals atrial fibrillation with heart rate [place] [id number]. She remains on IV Lasix mg every 12 hours. PHYSICAL EXAM: VITAL SIGNS: Reviewed. GENERAL: Well-developed in no acute distress. NECK: Supple. No JVD or thyromegaly LUNGS: Respirations even and unlabored. Lungs with expiratory wheezing noted HEART: Irregular rate and rhythm. S1 and S2 heard. EXTREMITIES: Normal range of motion. No clubbing or cyanosis. Peripheral pulses intact. Trace bilateral lower extremity edema ASSESSMENT: Acute right lower lobe pulmonary embolism New-onset atrial fibrillation with RVR Acute on chronic heart failure, type unknown, echo pending Possible pneumonia Altered mental status, improved Acute hypoxic respiratory failure PLAN: Obtain 2-D echo to assess cardiac structure and function Continue IV heparin Continue IV Lasix 40 mg every 12 hours Daily weights, accurate I&O, and monitoring of kidney function Resume home dose of carvedilol Continue telemetry monitoring Check TSH Further recommendations pending patient's course Nurse practitioner note has been reviewed by physician. Signing provider agrees with the documented findings, assessment, and plan of care. Objective - Vital Signs Vital signs: Vital Signs Temp 97.7 F 09/26/23 08:30 Pulse 93 09/26/23 11:10 Resp 18 09/26/23 11:10 BP 135/78 09/26/23 11:10 Pulse Ox 98 09/26/23 11:10 FiO2 40 09/25/23 11:29 Intake & Output 09/25/23 09/26/23 09/26/23 18:59 06:59 18:59 Intake Total 151.389 253.109 Output Total 640 1250 Balance -640 151.389 -996.891 Weight 117.299 kg Intake: Intake, IV Titration 151.389 253.109 Amount Heparin Sod,Pork in 0.45% 151.389 253.109 NaCl 25,000 unit In 0.45 % NaCl 1 250ml.bag @ 18 UNITS/KG/HR 20.412 mls/hr IV .[id number] [facility] Rx#: [id number] Output: Urine 640 1250 Uretheral ([place]) 640 1250 - Labs CBC & Chem 7: 09/26/23 06:38 09/26/23 06:38 Labs: Abnormal Lab Results - Last 24 Hours (Table) 09/26/23 09/26/23 09/26/23 Range/Units 06:38 06:38 08:50 RBC 3.43 L (3.80-5.40) m/uL Hgb 10.9 L (11.4-16.0) gm/dL MCV 101.7 H (80.0-100.0) fL Lymphocytes # 0.9 L (1.0-4.8) k/uL APTT 165.4 H* (22.0-30.0) sec BUN 24 H (7-17) mg/dL AST 59 H (14-36) U/L ALT 43 H (4-34) U/L
--- NOTE | 2023-09-26 14:23 | P.PN ---
Subjective Progress Note Date: 09/26/23 83 year old F with PMH of systolic CHF, HTN presents to the ED for altered mentation and shortness of breath that has been ongoing for the past 3 days. In the ED, patient underwent extensive evaluation. Noted to be agitated and confused. BP 194/102, HR 140, RR 33, 99% on 15L non rebreather. CBC WBC 12.2, Hg 11.2, MCV 102.8. APTT 41.7. CMP bicarb 21, glu 209. Lactic acid 1.5. Mag 2.1. Troponin 0.014, 0.071, 0.074, 0.064. BNP 7180. Flu, RSV, COVID negative. EKG Atrial fibrillation with RVR. CXR pulmonary vascular congestion, small pleural effusion. Started on BiPAP, given one dose on IV enalapril, low intensity heparin drip and admitted for further management. Started on Lasix 40 mg IV BID. D-Dimer elevated at 3.83. 09/26 Patient was seen and examined. Symptoms dramatically improved compared to yesterday. Currently on 3L NC. D-Dimer elevated at 3.83. CTA chest positive for PE in the RLL with cardiomegaly, moderate right and left pleural effusion, 7 mm right mid lung pulmonary nodule. Heparin drip switched to high intensity for treatment of PE. Cardiology recommends CT head and continued Lasix IV diuresis. BP improved to 135/78 this morning. CBC Hg 10.9 MCV 101.7. APTT 165.4. CMP BUN 24, AST 59, ALT 43. General: non toxic, no distress, appears at stated age Derm: warm, dry Head: atraumatic, normocephalic, symmetric Eyes: EOMI, no lid lag, anicteric sclera Mouth: no lip lesion, mucus membranes moist Cardiovascular: S1S2 reg, no murmur Lungs: CTA bilateral, no rhonchi, no rales , no accessory muscle use Abdominal: soft, nontender to palpation, no guarding, no appreciable organom egaly Ext: no gross muscle atrophy, no edema, no contractures Neuro: no focal neuro deficits Psych: Alert, oriented, appropriate affect Based on my assessment of this patient, this patient meets a high complexity level of care. Patient has an acute diagnosis of PE with hypertensive emergency resulting in respiratory failure and altered mental status that poses a threat to life or bodily function. Acute hypoxic respiratory failure: Multifactorial. PE. CHF exacerbation. Pulmonology embolus: Continue heparin drip at 18 units/kg/hr. Obtain LE Duplex. Atrial fibrillation with RVR: Continue Coreg 25 mg PO BID. Heparin drip for AC. Maintain K > 4 and Mg > 2. Telemetry monitoring. Cardiology on board. Systolic CHF exacerbation: Lasix 40 mg IV BID. Strict intake and outtake. Daily weights. Echo pending. Troponin elevation: Flat. ACS ruled out. Likely demand ischemia from hypertensive emergency and A-Fib RVR. Echo ordered. Acute metabolic encephalopathy: Resolving. CT head ordered. Macrocytic anemia: Obtain B12, Folate. CODE STATUS: FULL CODE DVT Prophylaxis: Heparin drip GI Prophylaxis: Protonix IV Designated medical POA if patient is not able to make medical decisions for themselves: I have reviewed the following hematology oncology consultant notes: Cardiology. I have reviewed the results of the following tests: CTA chest. I have ordered the following tests: CT head. Coag panel. BMP. B12, Folate. Pending: Echo. I have discussed the care of this patient with the following independent histor carmen: I have independently interpreted the following test below: I have discussed the management of this patient with the following physician: This patient has a high risk of morbidity due to the following reasons: Patient requires IV lasix which requires intensive monitoring for renal toxicity. Patient requires IV heparin which requires intensive monitoring for toxicity (coag panel) and bleeding. Objective - Vital Signs Vital signs: Vital Signs Temp 97.7 F 09/26/23 08:30 Pulse 83 09/26/23 14:06 Resp 20 09/26/23 14:06 BP 133/51 09/26/23 14:06 Pulse Ox 93 L 09/26/23 14:06 FiO2 40 09/25/23 11:29 Intake & Output 09/25/23 09/26/23 09/26/23 18:59 06:59 18:59 Intake Total 151.389 253.109 Output Total 640 3350 Balance -640 151.389 -3096.891 Weight 117.299 kg Intake: Intake, IV Titration 151.389 253.109 Amount Heparin Sod,Pork in 0.45% 151.389 253.109 NaCl 25,000 unit In 0.45 % NaCl 1 250ml.bag @ 18 UNITS/KG/HR 20.412 mls/hr IV .[id number] [facility] Rx#: [id number] Output: Urine 640 3350 Uretheral ([place]) 640 1250 - Labs CBC & Chem 7: 09/26/23 06:38 09/26/23 06:38 Labs: Abnormal Lab Results - Last 24 Hours (Table) 09/26/23 09/26/23 09/26/23 Range/Units 06:38 06:38 08:50 RBC 3.43 L (3.80-5.40) m/uL Hgb 10.9 L (11.4-16.0) gm/dL MCV 101.7 H (80.0-100.0) fL Lymphocytes # 0.9 L (1.0-4.8) k/uL APTT 165.4 H* (22.0-30.0) sec BUN 24 H (7-17) mg/dL AST 59 H (14-36) U/L ALT 43 H (4-34) U/L
--- NOTE | 2023-09-26 14:29 | US ---
EXAMINATION TYPE: US venous doppler duplex LE BI DATE OF EXAM: 09/26/2023 2:23 PM COMPARISON: NONE CLINICAL INDICATION: Female, 83 years old with history of PE; On IV heparin. Bilateral leg swelling. Portable exam SIDE PERFORMED: Bilateral TECHNIQUE: The lower extremity deep venous system is examined utilizing real time linear array sonog fab with graded compression, doppler sonography and color-flow sonography. VESSELS IMAGED: Common Femoral Vein Deep Femoral Vein Greater Saphenous Vein * Femoral Vein Popliteal Vein Small Saphenous Vein * Proximal Calf Veins (* superficial vessels) Limited due to patient body habitus and edema Right Leg: Negative for acute DVT Left Leg: Negative for acute DVT IMPRESSION: 1. Bilateral lower extremity ultrasound negative for deep venous thrombosis
[2023-09-27] MEDS: IPRATROPIUM-ALBUTEROL 3 ML NEB INHALATION SCH ×5 (02:55→21:40)
[2023-09-27] MEDS: HEPARIN SOD,PORK IN 0.45% NACL 25,000 UNIT in 0.45% NACL 1 250ML.BAG IV SCH ×2 (04:33→04:53)
--- NOTE | 2023-09-27 04:37 | P.CNPUL ---
History of Present Illness Consult date: 09/27/23 Requesting physician: Susie Ponce Reason for consult: pulmonary embolism Chief complaint: Acute shortness of breath and confusion History of present illness: I am seeing this patient in consultation today 09/27/2023 after she was brought in for acute shortness of breath and altered mental status. Patient is a 83-year-old white female past medical history significant for congestive heart failure, chronic lower extremity swelling, hypertension, obesity, and is a remote ex-smoker. Her primary care provider is currently a Dr. Kilpatrick on , but she is looking for a local PCP. On September 25, the patient had an episode of acute dyspnea accompanied with altered mental status. This was witnessed by the patient's niece, and started approximately 4 hours prior to arrival to the hospital. Found to be in Afib RVR on arrival. Intially, patient required BIPAP support in the ER. Chest CTA on arrival demonstrated segmental and subsegmental emboli within the right basilar lower lobe. No obvious CT evidence of right heart strain. Patient was started on high intensity heparin protocol. A PTT is therapeutic. There was also evidence of cardiomegaly, pulmonary vascular congestion, generalized anasarca, pulmonary hypertension, moderate right and small left pleural effusions. In addition, there was a 7 mm right mid lung pulmonary nodule. NT proBNP was elevated at 5540. Patient does have history of heart failure, she takes Bumex 1 mg daily and Zaroxolyn every other day at home. Patient was started on Lasix 40 mg twice a day. Patient does have significant lower extremity edema with chronic venous stasis changes. Bilateral lower extremity venous Doppler negative for DVT. Most recent CBC from yesterday: WBC count 8.1, hemoglobin 10.9, hematocrit 34.8, platelets 165. BMP from yesterday: Unremarkable. Troponins are mildly elevated at 0.071, 0.074, and 0.064 respectively. Patient is currently sitting up in bed, on 4 L/m nasal cannula, in no acute distress. She is now alert and oriented. She denies any previous personal or familial history of thromboembolic events, denies cancer history, denies recent surgery or prolonged travel. She is fairly sedentary at home. She does say she gets short of breath when lying flat and sleeps mostly in a recliner at home. Denies any chest pain, heart palpitations, or syncopal episodes. She has chronic lower extremity swelling. Overall, patient is hemodynamically stable. Review of Systems REVIEW OF SYSTEMS: CONSTITUTIONAL: Denies any recent significant weight loss or weight gain. EYES: Denies change in vision. EARS, NOSE, MOUTH, THROAT: Denies headaches, denies sore throat. CARDIOVASCULAR: Denies chest pain, palpitations or syncopal episodes. Admits chronic lower extremity swelling RESPIRATORY: Denies cough, congestion or hemoptysis. Admits shortness of breath as reported in HPI GASTROINTESTINAL: Denies change in appetite, abdominal pain, nausea and v omiting, or diarrhea GENITOURINARY: Denies hematuria, denies infections. MUSKULOSKELETAL: Denies pain, denies swelling. INTEGUMENTARY: Denies rash, denies eczema. NEUROLOGICAL: Denies recent memory loss, no recent seizure activity. PSYCHIATRIC: Denies anxiety, denies depression. HEMATOLOGIC/LYMPHATIC: Denies anemia, denies enlarged lymph node Past Medical History Past Medical History: Heart Failure, Hypertension History of Any Multi-Drug Resistant Organisms: None Reported Past Surgical History: No Surgical Hx Reported Past Anesthesia/Blood Transfusion Reactions: No Reported Reaction Past Psychological History: Anxiety, Depression Smoking Status: Former smoker Medications and Allergies Home Medications Medication Instructions Recorded Confirmed Type Acetaminophen Tab [Tylenol Tab] 1,000 mg PO TID 09/25/23 09/25/23 History Bumetanide [Bumex] 1 mg PO DAILY 09/25/23 09/25/23 History Fish Oil(Unknown Dose) 1 cap PO DAILY 09/25/23 09/25/23 History Gabapentin 600 mg PO TID 09/25/23 09/25/23 History Potassium Chloride ER [K-Dur 10] 10 meq PO BID 09/25/23 09/25/23 History Vitamin D(Unknown Dose) 1 tab PO DAILY 09/25/23 09/25/23 History carvediloL [Coreg] 25 mg PO BID 09/25/23 09/25/23 History lisinopriL [Prinivil] 5 mg PO DAILY PRN 09/25/23 09/25/23 History metOLazone [Zaroxolyn] 2.5 mg PO MOWEFR 09/25/23 09/25/23 History Allergies Allergy/AdvReac Type Severity Reaction Status Date / Time duloxetine [From Cymbalta] AdvReac Hallucinati Verified 09/25/23 15:06 ons Physical Exam Vitals: Vital Signs Temp Pulse Pulse Resp BP BP Pulse Ox 09/26/23 23:31 98.0 F 80 18 138/80 97 09/26/23 21:53 96 09/26/23 21:40 99 09/26/23 21:00 98.3 F 94 20 123/80 96 09/26/23 16:38 98.2 F 101 H 20 111/90 94 L 09/26/23 15:15 97 09/26/23 15:01 97 09/26/23 14:06 83 20 133/51 93 L 09/26/23 12:14 91 09/26/23 12:04 89 09/26/23 11:10 93 18 135/78 98 09/26/23 08:52 94 09/26/23 08:43 91 96 09/26/23 08:30 97.7 F 92 20 122/68 96 09/26/23 06:28 97.3 F L 95 20 136/80 100 09/26/23 05:44 91 19 123/83 09/26/23 04:34 88 09/26/23 04:22 95 09/26/23 04:04 82 19 124/70 97 09/26/23 03:08 103 H 19 116/81 97 Intake and Output 09/26/23 09/26/23 09/27/23 14:59 22:59 06:59 Intake Total 253.109 127.936 Output Total 3350 2100 Balance -3096.891 127.936 -2100 Intake: IV 10 Invasive Line 1 10 Intake, IV Titration 253.109 117.936 Amount Heparin Sod,Pork in 0.45% 253.109 117.936 NaCl 25,000 unit In 0.45 % NaCl 1 250ml.bag @ 18 UNITS/KG/HR 20.412 mls/hr IV .[id number] [facility] Rx#: [id number] Oral 0 Output: Urine 3350 2100 Uretheral ([place]) 1250 Other: Voiding Method Indwelling Catheter Weight 117.299 kg 117.299 kg GENERAL EXAM: Alert, 83-year-old white female, morbidly obese,, comfortable in no apparent distress. HEAD: Normocephalic and atraumatic EYES: Normal reaction of pupils, equal size. NOSE: Clear with pink turbinates. THROAT: No erythema or exudates. NECK: No masses, mild JVD. CHEST: No chest wall deformity. LUNGS: Equal air entry with no crackles, wheeze, rhonchi. There is bibasilar dullness with inspiratory crackles.. No conversational dyspnea or accessory muscle use.. CVS: S1 and S2 normal with no audible murmur, irregular rhythm. No extra heart sounds ABDOMEN: Obese abdomen, no hepatosplenomegaly, active bowel sounds, no guarding or rigidity. SPINE: No scoliosis or deformity SKIN: Bilateral lower extremity chronic venous stasis changes CENTRAL NERVOUS SYSTEM: No focal deficits, tone is normal in all 4 extremities. EXTREMITIES: There is severe lower extremity edema. No clubbing, or cyanosis. Peripheral pulses are intact. Results - Laboratory Findings CBC and BMP: 09/26/23 06:38 09/26/23 06:38 PT/INR, D-dimer PT 11.4 sec (10.0-12.5) 09/26/23 06:38 INR 1.0 (<1.2) 09/26/23 06:38 D-Dimer 3.83 mg/L FEU (<0.60) H 09/25/23 09:55 Abnormal lab findings: Abnormal Labs 09/25/23 09/25/23 09/25/23 00:53 00:53 00:53 WBC 12.3 H RBC Hgb MCV 100.9 H MCHC Neutrophils # 9.3 H Lymphocytes # APTT 20.7 L D-Dimer BUN 21 H Glucose 209 H POC Glucose (mg/dL) AST ALT Troponin I 09/25/23 09/25/23 09/25/23 01:13 03:42 06:50 WBC RBC Hgb MCV MCHC Neutrophils # Lymphocytes # APTT D-Dimer BUN Glucose POC Glucose (mg/dL) 203 H AST ALT Troponin I 0.071 H* 0.074 H* 09/25/23 09/25/23 09/25/23 06:50 09:55 09:55 WBC 12.2 H RBC 3.56 L Hgb 11.2 L MCV 102.8 H MCHC 30.7 L Neutrophils # 10.3 H Lymphocytes # 0.9 L APTT 41.7 H D-Dimer BUN Glucose POC Glucose (mg/dL) AST ALT Troponin I 0.064 H* 09/25/23 09/26/23 09/26/23 09:55 06:38 06:38 WBC RBC 3.43 L Hgb 10.9 L MCV 101.7 H MCHC Neutrophils # Lymphocytes # 0.9 L APTT D-Dimer 3.83 H BUN 24 H Glucose POC Glucose (mg/dL) AST 59 H ALT 43 H Troponin I 09/26/23 09/26/23 09/26/23 08:50 17:01 23:33 WBC RBC Hgb MCV MCHC Neutrophils # Lymphocytes # APTT 165.4 H* 86.4 H 54.5 H D-Dimer BUN Glucose POC Glucose (mg/dL) AST ALT Troponin I - Diagnostic Findings Chest x-ray: image reviewed CT scan - chest: image reviewed Assessment and Plan Assessment: Acute right lower lobe segmental and subsegmental pulmonary emboli. No CT evidence of right-sided heart strain. Currently on the high intensity heparin protocol. Suspected CHF exacerbation, unknown type. Chest CTA demonstrated cardiomegaly, pulmonary vessel congestion, moderate right and small left pleural effusions. NT proBNP elevated at 5540. Acute hypoxemic respiratory failure, secondary to above Incidentally found 7 mm right pulmonary nodule, no prior imaging for comparison. Recommend short-term follow-up in 3 months. New-onset atrial fibrillation with rapid ventricular rate, currently better controlled ventricular response Elevated troponins, flat, not consistent with ACS. Likely related to supply/demand mismatch. Benign essential hypertension Obesity, with a BMI of 39.3 kg/m Remote history of tobacco smoking Plan: Patient's medications, labs, imaging reviewed. Continue supplemental oxygen. Initially requiring BiPAP support in the emergency room, currently on 4 L/m nasal cannula. Continue high intensity heparin protocol, will likely switch to DOAC for 3-6 months. APTT therapeutic. This is the patient's first thromboembolic event. Patient is fairly sedentary at home. Venous Doppler bilateral lower extremities negative for DVT. Continue Lasix 40 mg twice a day. Monitor urine output Echocardiogram is pending Cardiology is also following and managing patient's A. fib/CHF . Rate is better controlled. No sign of hemodynamic compromise. We will continue to follow, and further recommendations are forthcoming. I have personally seen and examined the patient, performed the documentation and the assessment and plan as written. Number of minutes spent on the visit:20 . Time with Patient: Greater than 30
[2023-09-27] MEDS: carvediloL 12.5 MG TAB PO SCH ×2 (06:32→17:44)
[2023-09-27 07:49] LABS: Hypochromasia Slight; MCH 31.4 pg (25.0-35.0); MCHC 32.3 g/dL (31.0-37.0); MCV 97.1 fL (80.0-100.0); Mean Platelet Volume 8.2; Platelet Count 150 k/uL (150-450); RBC 3.19 m/uL (3.80-5.40); RDW 14.1 % (11.5-15.5); WBC 6.9 k/uL (3.8-10.6)
[2023-09-27 08:07] LABS: Prothrombin Time 11.3 sec (10.0-12.5)
[2023-09-27] MEDS: PANTOPRAZOLE 40 MG/10 ML VIAL IV SCH (08:47)
[2023-09-27] MEDS: FUROSEMIDE 10 MG/ML 4 ML VIAL IV SCH ×2 (08:47→20:16)
[2023-09-27 09:08] LABS: African American GFR (CKD) >90 (>60 ml/min/1.73 sqM); Anion Gap 6 mmol/L; Blood Urea Nitrogen 20 mg/dL (7-17); Calcium 8.5 mg/dL (8.4-10.2); Carbon Dioxide 33 mmol/L (22-30); Chloride 98 mmol/L (98-107); Glucose 84 mg/dL (74-99); Non-African American GFR(CKD) 82 (>60 ml/min/1.73 sqM); Potassium 3.7 mmol/L (3.5-5.1); Sodium 137 mmol/L (137-145)
--- NOTE | 2023-09-27 09:51 | CT ---
EXAMINATION TYPE: CT brain wo con CT DLP: 1126.4 mGycm, Automated exposure control for dose reduction was used. DATE OF EXAM: 09/26/2023 9:28 AM COMPARISON: None. CLINICAL INDICATION:Female, 83 years old with history of AMS, ams TECHNIQUE: Brain: Axial CT images of the brain were obtained with coronal and sagittal reformats created and rev iewed. Contrast used: None. Oral contrast used: None. FINDINGS: Extra-axial spaces: No abnormal extra-axial fluid collections. Ventricular system: Appear dilated in proportion to the degree of cerebral atrophy. Cerebral parenchyma: No increased attenuation to suggest acute intraparenchymal hemorrhage. The gra y-white matter interface appears maintained. Mild/moderate generalized brain atrophy. Scattered hyp oattenuating areas are seen within the cerebral white matter, nonspecific but most often seen with ch ronic microvascular ischemic changes; mild/moderate in degree. Cerebellum: No acute abnormality. Mass effect: No evidence of mass effect or midline shift. Intracranial vasculature: Atherosclerotic calcifications of the larger arteries near the skull base. Soft tissues: Normal. Visualized orbits: Orbital contents appear grossly intact. There has likely been previous lens surg simone. Calvarium/osseous structures: No evidence of calvarial fracture. Paranasal sinuses and mastoid air cells: Mild scattered paranasal sinus disease. Mastoid air cells a re clear. MRI is more sensitive for detecting acute processes such as infarct, and may be considered if clinica lly warranted. IMPRESSION: No CT evidence of an acute intracranial abnormality. Atrophy and chronic microvascular ischemic white matter changes.
[2023-09-27] MEDS: Apixaban Initiation Dose--VTE 5 MG TAB PO SCH ×2 (10:03→20:16)
--- NOTE | 2023-09-27 10:51 | P.PN ---
Subjective Progress Note Date: 09/27/23 83 year old F with PMH of systolic CHF, HTN presents to the ED for altered mentation and shortness of breath that has been ongoing for the past 3 days. In the ED, patient underwent extensive evaluation. Noted to be agitated and confused. BP 194/102, HR 140, RR 33, 99% on 15L non rebreather. CBC WBC 12.2, Hg 11.2, MCV 102.8. APTT 41.7. CMP bicarb 21, glu 209. Lactic acid 1.5. Mag 2.1. Troponin 0.014, 0.071, 0.074, 0.064. BNP 7180. Flu, RSV, COVID negative. EKG Atrial fibrillation with RVR. CXR pulmonary vascular congestion, small pleural effusion. Started on BiPAP, given one dose on IV enalapril for hypertensive emergency, low intensity heparin drip for NSTEMI and admitted for further management. Started on Lasix 40 mg IV BID. D-Dimer elevated at 3.83. CTA chest positive for PE in the RLL with cardiomegaly, moderate right and left pleural effusion, 7 mm right mid lung pulmonary nodule. Heparin drip switched to high intensity for treatment of PE. Cardiology recommends CT head and continued Lasix IV diuresis. 09/27 Patient was seen and examined. Feeling well. Not quite back to normal. Curr ently on 2L NC. Diuresis with Lasix 40 mg IV BID. Heparin drip switched to Eliquis 10 mg PO BID. Venous duplex negative for DVT. CT brain no acute findings. Echo is pending. BP improved to 154/75 this morning. CBC Hg 10, Hct 31. APTT 57. BNP 5540. BMP bicarb 33, BUN 20. General: non toxic, no distress, appears at stated age Derm: warm, dry Head: atraumatic, normocephalic, symmetric Eyes: EOMI, no lid lag, anicteric sclera Mouth: no lip lesion, mucus membranes moist Cardiovascular: S1S2 reg, no murmur Lungs: CTA bilateral, no rhonchi, no rales , no accessory muscle use Abdominal: soft, nontender to palpation, no guarding, no appreciable organomegaly Ext: no gross muscle atrophy, no edema, no contractures Neuro: no focal neuro deficits Psych: Alert, oriented, appropriate affect Based on my assessment of this patient, this patient meets a high complexity level of care. Patient has an acute diagnosis of PE with hypertensive emergency resulting in flash pulmonary edema and respiratory failure with altered mental status that poses a threat to life or bodily function. Acute hypoxic respiratory failure: Multifactorial. PE. Flash pulmonary edema/CHF exacerbation from hypertensive emergency. Pulmonology embolus: Heparin drip switched to Eliquis 10 mg PO BID. LE Duplex negative. Echo is pending. Transition to NOAC when OK with Cardiology and Pulmonology. Atrial fibrillation with RVR: Continue Coreg 25 mg PO BID. Heparin drip for AC. Maintain K > 4 and Mg > 2. Telemetry monitoring. Cardiology on board. Systolic CHF exacerbation: Lasix 40 mg IV BID. Strict intake and outtake. Daily weights. Echo pending. Troponin elevation: Flat. ACS ruled out. Likely demand ischemia from hyper tensive emergency and A-Fib RVR. Echo ordered. Acute metabolic encephalopathy: Due to all of the above. Resolving. CT head negative. Macrocytic anemia: Obtain B12, Folate. Resolved: Hypertensive emergency. CODE STATUS: FULL CODE DVT Prophylaxis: Heparin drip GI Prophylaxis: Protonix IV Designated medical POA if patient is not able to make medical decisions for themselves: I have reviewed the following inside solar sales consultant notes: Cardiology, Pulmonology. I have reviewed the results of the following tests: CBC, APTT, BNP, BMP. Pending: B12/Folate, Procal, Echocardiogram I have ordered the following tests: BMP. I have discussed the care of this patient with the following independent historian: I have independently interpreted the following test below: I have discussed the management of this patient with the following physician: This patient has a high risk of morbidity due to the following reasons: Patient requires IV lasix which requires intensive monitoring for renal toxicity. Objective - Vital Signs Vital signs: Vital Signs Temp 98.2 F 09/27/23 04:16 Pulse 80 09/27/23 08:09 Resp 18 09/27/23 04:16 BP 154/75 09/27/23 04:16 Pulse Ox 94 L 09/27/23 04:16 FiO2 40 09/25/23 11:29 Intake & Output 09/26/23 09/27/23 09/27/23 18:59 06:59 18:59 Intake Total 371.045 141.518 Output Total 3350 2100 Balance -2978.955 -1958.482 Weight 117.299 kg 110.5 kg Intake: IV 20 Invasive Line 1 20 Intake, IV Titration 371.045 121.518 Amount Heparin Sod,Pork in 0.45% 371.045 121.518 NaCl 25,000 unit In 0.45 % NaCl 1 250ml.bag @ 18 UNITS/KG/HR 20.412 mls/hr IV .[id number] [facility] Rx#: [id number] Oral 0 Output: Urine 3350 2100 Uretheral ([place]) 1250 Other: Voiding Method Indwelling Catheter - Labs CBC & Chem 7: 09/27/23 07:30 09/27/23 07:30 Labs: Abnormal Lab Results - Last 24 Hours (Table) 09/26/23 09/26/23 09/26/23 Range/Units 06:38 08:50 17:01 RBC (3.80-5.40) m/uL Hgb (11.4-16.0) gm/dL Hct (34.0-46.0) % APTT 165.4 H* 86.4 H (22.0-30.0) sec BUN 24 H (7-17) mg/dL AST 59 H (14-36) U/L ALT 43 H (4-34) U/L 09/26/23 09/27/23 09/27/23 Range/Units 23:33 07:30 07:30 RBC 3.19 L (3.80-5.40) m/uL Hgb 10.0 L (11.4-16.0) gm/dL Hct 31.0 L (34.0-46.0) % APTT 54.5 H 57.0 H (22.0-30.0) sec BUN (7-17) mg/dL AST (14-36) U/L ALT (4-34) U/L
--- NOTE | 2023-09-27 11:14 | CA ---
Transthoracic Echo Report Name: Sayda Rivera Age: 83 Gender: F : 1940 Exam Date: 09/27/2023 08:09 Exam Location: [facility] Ht (in): 66 Wt (lb): 250 Ordering Physician: Chandu Ernandez DO Attending/Referring Phys: [id number], Awais Ladler Sri Coleman RDCS Procedure CPT: Indications: Heart failure Cardiac Hx: Technical Quality: Contrast 1: Total Dose (mL): Contrast 2: Total Dose (mL): MEASUREMENTS (Male / Female) Normal Values 2D ECHO LV Diastolic Diameter PLAX 4.7 cm 4.2 - 5.9 / 3.9 - 5.3 cm LV Systolic Diameter PLAX 3.0 cm IVS Diastolic Thickness 0.9 cm 0.6 - 1.0 / 0.6 - 0.9 cm LVPW Diastolic Thickness 1.1 cm 0.6 - 1.0 / 0.6 - 0.9 cm LV Relative Wall Thickness 0.4 RV Internal Dim ED PLAX 3.4 cm LA Systolic Diameter LX 5.0 cm 3.0 - 4.0 / 2.7 - 3.8 cm LV Diastolic Volume MOD 4C 110.7 cm??? LV Systolic Volume MOD 4C 49.4 cm??? LV Ejection Fraction MOD 4C 55.4 % LV Cardiac Index MOD 4C 2214.4 cm???/min???m??? LV Diastolic Length 4C 7.8 cm LV Systolic Length 4C 6.6 cm LV Diastolic Volume MOD 2C 94.0 cm??? LV Systolic Volume MOD 2C 56.9 cm??? LV Ejection Fraction MOD 2C 39.4 % LV Cardiac Index MOD 2C 1339.6 cm???/min???m??? LV Diastolic Length 2C 7.7 cm LV Systolic Length 2C 6.9 cm LA Volume 100.0 cm??? 18 - 58 / 22 - 52 cm??? LA Volume Index 42.5 cm???/m??? 16 - 28 cm???/m??? M-MODE Aortic Root Diameter MM 3.3 cm AV Cusp Separation MM 2.1 cm DOPPLER AV Peak Velocity 134.9 cm/s AV Peak Gradient 7.3 mmHg MV Area PHT 4.0 cm??? MV Deceleration Time 251.4 ms TR Peak Velocity 225.9 cm/s TR Peak Gradient 20.4 mmHg Right Ventricular Systolic Press 25.4 mmHg FINDINGS Left Ventricle Left ventricular ejection fraction is estimated at 45-50 %. Left ventricular cavity size normal. Mildly increased posterior wall thickness. Right Ventricle Mild right ventricular dilatation. Right ventricular systolic pressure within normal limits. Right Atrium Right atrial dilatation. Left Atrium Severely increased left atrial diameter. Severely increased left atrial volume. Mildly increased left atrial area. Mitral Valve Mitral valve thickened. Mild mitral annular calcification. Mild mitral regurgitation. Aortic Valve Trileaflet aortic valve. No aortic valve stenosis or regurgitation. Tricuspid Valve Structurally normal tricuspid valve. Mild tricuspid regurgitation. Pulmonic Valve Pulmonic valve not well visualized. Mild pulmonic regurgitation. Pericardium Small pericardial effusion. Aorta Normal size aortic root and proximal ascending aorta. CONCLUSIONS Normal LV function Mild mitral regurgitation Previewed by: Dr. Darío Nava MD (Electronically Signed) Final Date: 27 September 2023 11:14
[2023-09-27 11:26] VITALS: BMI 39.3
--- NOTE | 2023-09-27 13:08 | P.PN ---
Subjective HISTORY OF PRESENT ILLNESS: HPI: Patient is an 83-year-old female with history of hypertension, congestive heart failure, who presented to the hospital via the family secondary to complaining of shortness of breath. Patient [place] a [place] city [place] the area, and her niece who was at the bedside states that she just moved into the area 2 days ago. She reports that when they came to check on her yesterday, she was demonstrating significant shortness of breath, as well as decreased mentation. She was able to tell him that she's been feeling short of breath for the last couple of days. They at that time called EMS and had the patient transported the hospital for evaluation. Niece reports that the patient has been compliant with her medications. In the emergency department the patient was found to be somewhat agitated and confused, and required BiPAP to be placed to maintain adequate oxygen saturation and to calm her breathing. Patient was found to have a significantly elevated blood pressure at 194/102 on arrival. Patient was found to be in atrial fibrillation on EKG. Patient was st arted on Lasix, heparin, and was given one dose of enalapril IV which did bring her heart rate down into more controlled rate, as well as controlling her blood pressure much better. This morning upon evaluation the patient is found in the bed, confused and combative. The family is at the bedside who reiterates the emergency department storied. Patient is noted to have chronic leg edema and 2+. Vital signs are much more controlled at this time, blood pressure is within normal limits, heart rate is controlled on the monitor. REVIEW OF LABS, ECG & MEDICAL DATA: LABS: White count 12.2, hemoglobin 11.2, platelets 164, d-dimer 3.83, sodium 140, potassium 4.9, BUN 21, creatinine 0.83, calcium 8.8, magnesium 2.1, troponin-0.014, 0.071, 0.074, 0.064, BNP 7,180 EKG: Atrial fibrillation with rapid ventricular response IMAGING: Chest x-ray dated 09/25/2023 demonstrates findings suggestive of c ongestive heart failure, there is cardiomegaly, vascular congestion, and bilateral interstitial opacities suggesting pulmonary edema, small pleural effusions bilaterally. VITALS: Temp 97.4, pulse 71, respirations 20, blood pressure 112/82, O2 saturation 98% on BiPAP 09/26/2023 Patient examined this morning at the bedside in the emergency room. Patient currently denies chest pain or pressure. She reports mild shortness of breath. She underwent CTA yesterday revealing segmental and subsegmental ranch pulmonary emboli to the basilar right lower lobe, cardiomegaly, pulmonary hypertension, moderate right and small left pleural effusions. She was started on IV heparin. Bedside telemetry reveals atrial fibrillation [place] heart rate [place] [address]. She remains on IV Lasix mg every 12 hours. 09/27/2023 Patient examined this morning at the bedside. Patient states she is feeling better today. She denies chest pain or pressure. She denies shortness of breath. Telemetry reveals atrial fibrillation with a controlled heart rate in the 60s. She remains on IV heparin. Echocardiogram completed revealing ejection fraction 45-50%, mild right ventricular dilatation, right ventricular systolic pressure within normal limits, mild TR, mild pulmonic regurgitation, mild mitral regurgitation. PHYSICAL EXAM: VITAL SIGNS: Reviewed. GENERAL: Well-developed in no acute distress. NECK: Supple. No JVD or thyromegaly LUNGS: Respirations even and unlabored. Lungs with expiratory wheezing noted HEART: Irregular rate and rhythm. S1 and S2 heard. EXTREMITIES: Normal range of motion. No clubbing or cyanosis. Peripheral pulses intact. Trace bilateral lower extremity edema ASSESSMENT: Acute right lower lobe pulmonary embolism New-onset atrial fibrillation with RVR, currently rate controlled Acute on chronic heart failure with mildly reduced EF, 45-50% Possible pneumonia Altered mental status, improved Acute hypoxic respiratory failure PLAN: Discontinue IV heparin. Begin Eliquis Continue additional cardiac medications Continue IV Lasix. Anticipate transition to oral dosing tomorrow Daily weights, accurate I&O, monitor kidney function Further recommendations pending patient's course Nurse practitioner note has been reviewed by physician. Signing provider agrees with the documented findings, assessment, and plan of care. Objective - Vital Signs Vital signs: Vital Signs Temp 97.6 F 09/27/23 12:08 Pulse 83 09/27/23 12:08 Resp 16 09/27/23 12:08 BP 140/81 09/27/23 12:08 Pulse Ox 94 L 09/27/23 12:08 FiO2 40 09/25/23 11:29 Intake & Output 09/26/23 09/27/23 09/27/23 18:59 06:59 18:59 Intake Total 371.045 141.518 0 Output Total 3350 2100 2200 Balance -2978.955 -1958.482 -2200 Weight 117.299 kg 110.5 kg 110.5 kg Intake: IV 20 Invasive Line 1 20 Intake, IV Titration 371.045 121.518 Amount Heparin Sod,Pork in 0.45% 371.045 121.518 NaCl 25,000 unit In 0.45 % NaCl 1 250ml.bag @ 18 UNITS/KG/HR 20.412 mls/hr IV .[id number] [facility] Rx#: [id number] Oral 0 0 Output: Urine 3350 2100 2200 Uretheral (Buckner) 1250 Other: Voiding Method Indwelling Catheter - Labs CBC & Chem 7: 09/27/23 07:30 09/27/23 07:30 Labs: Abnormal Lab Results - Last 24 Hours (Table) 09/26/23 09/26/23 09/27/23 Range/Units 17:01 23:33 07:30 RBC (3.80-5.40) m/uL Hgb (11.4-16.0) gm/dL Hct (34.0-46.0) % APTT 86.4 H 54.5 H (22.0-30.0) sec Carbon Dioxide (22-30) mmol/L BUN (7-17) mg/dL Procalcitonin 0.16 H (0.02-0.09) ng/mL 09/27/23 09/27/23 09/27/23 Range/Units 07:30 07:30 07:30 RBC 3.19 L (3.80-5.40) m/uL Hgb 10.0 L (11.4-16.0) gm/dL Hct 31.0 L (34.0-46.0) % APTT 57.0 H (22.0-30.0) sec Carbon Dioxide 33 H (22-30) mmol/L BUN 20 H (7-17) mg/dL Procalcitonin (0.02-0.09) ng/mL
[2023-09-27] MEDS: MORPHINE SULFATE 4 MG/ML SYRINGE IV PRN ×2 (14:58→20:16)
[2023-09-27] MEDS: ONDANSETRON 4 MG/2 ML VIAL IVP PRN (14:58)
[2023-09-27 19:36] LABS: Basophils % (A) 0 %; Eosinophils # (A) 0.1 k/uL (0-0.7); Eosinophils % (A) 1 %; HCT 35.2 % (34.0-46.0); HGB 11.6 gm/dL (11.4-16.0); Hypochromasia Slight; Lymphocytes # (A) 0.7 k/uL (1.0-4.8); Lymphocytes % (A) 9 %; MCH 32.2 pg (25.0-35.0); MCV 97.6 fL (80.0-100.0); Mean Platelet Volume 7.9; Monocytes # (A) 0.5 k/uL (0-1.0); Monocytes % (A) 6 %; Neutrophils % (A) 82 %; Platelet Count 174 k/uL (150-450); RDW 13.6 % (11.5-15.5); WBC 7.3 k/uL (3.8-10.6)
[2023-09-28] MEDS: IPRATROPIUM-ALBUTEROL 3 ML NEB INHALATION SCH ×7 (01:21→23:50)
[2023-09-28] MEDS: ONDANSETRON 4 MG/2 ML VIAL IVP PRN (04:02)
[2023-09-28] MEDS: carvediloL 12.5 MG TAB PO SCH ×2 (06:22→18:00)
[2023-09-28] MEDS: Apixaban Initiation Dose--VTE 5 MG TAB PO SCH ×2 (08:33→20:32)
[2023-09-28] MEDS: PANTOPRAZOLE 40 MG/10 ML VIAL IV SCH (08:33)
[2023-09-28] MEDS: FUROSEMIDE 10 MG/ML 4 ML VIAL IV SCH (08:33)
--- NOTE | 2023-09-28 09:42 | P.GSCN ---
History of Present Illness Consult date: 09/28/23 History of present illness: 83 yo female admitted to the hospital 09/25/23 because of sob and disorientation. SHe has a history of chf. A catheter was placed and she subsequently has had hematuria. She has been on eliquis. She was interviewed at the bedside today She is awake and alert this am. SHe denies previous uti, hematuria, dysuria, stones or other urologic problems. the urine in the rasmussen is clearing with some old blood in the tubing There is no ua on the chart nor is there a previous ua noted on the chart. Review of Systems All systems: negative - Constitutional Denies fever, Denies weight loss - EENT Eyes: denies blurred vision Ears, nose, mouth and throat: Denies dysphagia - Cardiovascular Denies chest pain, Denies shortness of breath - Respiratory Denies cough, Denies 7 - Gastrointestinal Reports as per HPI - Genitourinary Genitourinary: Denies dysuria, Denies hematuria - Integumentary Denies rash, Denies unusual bruising - Neurological Denies headaches, Denies syncope - Hematologic/Lymphatic Denies easy bleeding, Denies easy bruising Past Medical History Past Medical History: Heart Failure, Hypertension History of Any Multi-Drug Resistant Organisms: None Reported Past Surgical History: No Surgical Hx Reported Past Anesthesia/Blood Transfusion Reactions: No Reported Reaction Past Psychological History: Anxiety, Depression Smoking Status: Former smoker Medications and Allergies Home Medications Medication Instructions Recorded Confirmed Type Acetaminophen Tab [Tylenol Tab] 1,000 mg PO TID 09/25/23 09/25/23 History Bumetanide [Bumex] 1 mg PO DAILY 09/25/23 09/25/23 History Fish Oil(Unknown Dose) 1 cap PO DAILY 09/25/23 09/25/23 History Gabapentin 600 mg PO TID 09/25/23 09/25/23 History Potassium Chloride ER [K-Dur 10] 10 meq PO BID 09/25/23 09/25/23 History Vitamin D(Unknown Dose) 1 tab PO DAILY 09/25/23 09/25/23 History carvediloL [Coreg] 25 mg PO BID 09/25/23 09/25/23 History lisinopriL [Prinivil] 5 mg PO DAILY PRN 09/25/23 09/25/23 History metOLazone [Zaroxolyn] 2.5 mg PO MOWEFR 09/25/23 09/25/23 History Allergies Allergy/AdvReac Type Severity Reaction Status Date / Time duloxetine [From Cymbalta] AdvReac Hallucinati Verified 09/25/23 15:06 ons Surgical - Exam Vital Signs Pulse Resp BP Pulse Ox 140 H 33 H 194/102 99 09/25/23 00:49 09/25/23 00:49 09/25/23 00:49 09/25/23 00:49 Results - Labs 09/27/23 19:12 09/27/23 07:30 Abnormal Lab Results - Last 24 Hours (Table) 09/27/23 09/27/23 Range/Units 07:30 19:12 RBC 3.60 L (3.80-5.40) m/uL Lymphocytes # 0.7 L (1.0-4.8) k/uL Procalcitonin 0.16 H (0.02-0.09) ng/mL Assessment and Plan Assessment: Impression: gross hematuria probably secondary to catheter aggravated by eliquis. Plan: Nothing urologic needs to be done. If the blood persists however she possibly could need an op hematuria evaluation
[2023-09-28 09:52] LABS: Basophils % (A) 0 %; Eosinophils # (A) 0.1 k/uL (0-0.7); Eosinophils % (A) 1 %; HCT 36.5 % (34.0-46.0); HGB 11.8 gm/dL (11.4-16.0); Hypochromasia Slight; Lymphocytes # (A) 0.7 k/uL (1.0-4.8); Lymphocytes % (A) 9 %; MCH 31.5 pg (25.0-35.0); MCHC 32.2 g/dL (31.0-37.0); MCV 97.7 fL (80.0-100.0); Mean Platelet Volume 8.7; Monocytes # (A) 0.7 k/uL (0-1.0); Monocytes % (A) 8 %; Neutrophils # (A) 6.7 k/uL (1.3-7.7); Neutrophils % (A) 81 %; Platelet Count 171 k/uL (150-450); RBC 3.74 m/uL (3.80-5.40); RDW 13.9 % (11.5-15.5); WBC 8.2 k/uL (3.8-10.6)
[2023-09-28 10:02] LABS: African American GFR (CKD) >90 (>60 ml/min/1.73 sqM); Anion Gap 7 mmol/L; Blood Urea Nitrogen 19 mg/dL (7-17); Carbon Dioxide 40 mmol/L (22-30); Chloride 92 mmol/L (98-107); Glucose 98 mg/dL (74-99); Non-African American GFR(CKD) 81 (>60 ml/min/1.73 sqM); Potassium 3.2 mmol/L (3.5-5.1); Sodium 139 mmol/L (137-145)
--- NOTE | 2023-09-28 11:52 | P.PN ---
Subjective HISTORY OF PRESENT ILLNESS: HPI: Patient is an 83-year-old female with history of hypertension, congestive heart failure, who presented to the hospital via the family secondary to complaining of shortness of breath. Patient is a recent transplant from another city to the area, and her niece who was at the bedside states that she just moved into the area 2 days ago. She reports that when they came to check on her yesterday, she was demonstrating significant shortness of breath, as well as decreased mentation. She was able to tell him that she's been feeling short of breath for the last couple of days. They at that time called EMS and had the patient transported the hospital for evaluation. Niece reports that the patient has been compliant with her medications. In the emergency department the patient was found to be somewhat agitated and confused, and required BiPAP to be placed to maintain adequate oxygen saturation and to calm her breathing. Patient was found to have a significantly elevated blood pressure at 194/102 on arrival. Patient was found to be in atrial fibrillation on EKG. Patient was st arted on Lasix, heparin, and was given one dose of enalapril IV which did bring her heart rate down into more controlled rate, as well as controlling her blood pressure much better. This morning upon evaluation the patient is found in the bed, confused and combative. The family is at the bedside who reiterates the emergency department storied. Patient is noted to have chronic leg edema and 2+. Vital signs are much more controlled at this time, blood pressure is within normal limits, heart rate is controlled on the monitor. REVIEW OF LABS, ECG & MEDICAL DATA: LABS: White count 12.2, hemoglobin 11.2, platelets 164, d-dimer 3.83, sodium 140, potassium 4.9, BUN 21, creatinine 0.83, calcium 8.8, magnesium 2.1, troponin-0.014, 0.071, 0.074, 0.064, BNP 7,180 EKG: Atrial fibrillation with rapid ventricular response IMAGING: Chest x-ray dated 09/25/2023 demonstrates findings suggestive of c ongestive heart failure, there is cardiomegaly, vascular congestion, and bilateral interstitial opacities suggesting pulmonary edema, small pleural effusions bilaterally. VITALS: Temp 97.4, pulse 71, respirations 20, blood pressure 112/82, O2 saturation 98% on BiPAP 09/26/2023 Patient examined this morning at the bedside in the emergency room. Patient currently denies chest pain or pressure. She reports mild shortness of breath. She underwent CTA yesterday revealing segmental and subsegmental ranch pulmonary emboli to the basilar right lower lobe, cardiomegaly, pulmonary hypertension, moderate right and small left pleural effusions. She was started on IV heparin. Bedside telemetry reveals atrial fibrillation [place] heart rate [place] [id number]. She remains on IV Lasix mg every 12 hours. 09/27/2023 Patient examined this morning at the bedside. Patient states she is feeling better today. She denies chest pain or pressure. She denies shortness of breath. Telemetry reveals atrial fibrillation with a controlled heart rate in the 60s. She remains on IV heparin. Echocardiogram completed revealing ejection fraction 45-50%, mild right ventricular dilatation, right ventricular systolic pressure within normal limits, mild TR, mild pulmonic regurgitation, mild mitral regurgitation. September 28 2023 Patient examined this morning at the bedside. Patient currently denies chest pain or pressure. She denies dryness of breath. She remains on IV Lasix 40 mg every 12 hours. She reports feeling nauseated this morning with dry heaves. She has been receiving Zofran. The patient also has hematuria noted in her Buckner catheter this morning. Urology was consulted with no further recommendations from their standpoint at this time. She remains on Eliquis. Hemoglobin stable at 11.8. Telemetry reveals atrial fibrillation with controlled ventricular rate PHYSICAL EXAM: VITAL SIGNS: Reviewed. GENERAL: Well-developed in no acute distress. NECK: Supple. No JVD or thyromegaly LUNGS: Respirations even and unlabored. Lungs with expiratory wheezing noted HEART: Irregular rate and rhythm. S1 and S2 heard. EXTREMITIES: Normal range of motion. No clubbing or cyanosis. Peripheral pulses intact. Trace bilateral lower extremity edema ASSESSMENT: Acute right lower lobe pulmonary embolism New-onset atrial fibrillation with RVR, currently rate controlled Acute on chronic heart failure with mildly reduced EF, 45-50% Possible pneumonia Altered mental status, improved Acute hypoxic respiratory failure Hematuria PLAN: Continue Eliquis. Monitor hemoglobin. Urology consultation for hematuria with no further recommendations from their standpoint at this time Continue additional cardiac medications Discontinue IV Lasix. Resume oral Bumex Daily weights, accurate I&O, monitor kidney function Further recommendations pending patient's course Nurse practitioner note has been reviewed by physician. Signing provider agrees with the documented findings, assessment, and plan of care. Objective - Vital Signs Vital signs: Vital Signs Temp 97.7 F 09/28/23 08:00 Pulse 75 09/28/23 08:12 Resp 18 09/28/23 08:00 BP 146/71 09/28/23 08:00 Pulse Ox 95 09/28/23 08:00 FiO2 40 09/25/23 11:29 Intake & Output 09/27/23 09/28/23 09/28/23 18:59 06:59 18:59 Intake Total 100 20 0 Output Total 3000 1250 1420 Balance -2900 -1230 -1420 Weight 110.5 kg 109 kg Intake: IV 20 Invasive Line 1 10 Invasive Line 2 10 Oral 100 0 Output: Urine 3000 1250 1420 Other: Voiding Method Indwelling Catheter Indwelling Catheter Indwelling Catheter - Labs CBC & Chem 7: 09/28/23 08:55 09/28/23 08:55 Labs: Abnormal Lab Results - Last 24 Hours (Table) 09/27/23 09/28/23 09/28/23 Range/Units 19:12 08:55 08:55 RBC 3.60 L 3.74 L (3.80-5.40) m/uL Lymphocytes # 0.7 L 0.7 L (1.0-4.8) k/uL Potassium 3.2 L (3.5-5.1) mmol/L Chloride 92 L (98-107) mmol/L Carbon Dioxide 40 H (22-30) mmol/L BUN 19 H (7-17) mg/dL
[2023-09-28] MEDS ORDERED: POTASSIUM CHLORIDE ER 20 MEQ TAB.ER PO STA (12:06)
--- NOTE | 2023-09-28 12:07 | P.PN ---
Subjective Progress Note Date: 09/28/23 Hospital Course: 83-year-old female with history of systolic CHF, hypertension presenting with shortness of breath. On initial presentation, patient was hypoxic requiring BiPAP, hypertensive, and tachycardic. WBC up to 12.3, troponin elevated to 0.074. Respiratory viral panel negative. Right bundle branch block, frequent PACs. Chest x-ray showed evidence of congestive heart failure. Small pleural effusions bilaterally. Chest CTA pulmonary embolism and segmental and subsegmental branch of right basilar lower lobe., 7 mm right mid lung pulmonary nodule. Lower extremity Dopplers negative for DVTs. Patient was also in new onset atrial fibrillation with RVR. Admitted for acute pulmonary embolism, A. fib RVR, acute CHF exacerbation. Cardiology was consulted. She was started on IV heparin drip, and IV Lasix. Heparin drip discontinued, started on Eliquis. Pulmonology also consulted. Respiratory function better, patient on 3 L. Subjective: Patient seen and examined at bedside. No acute events overnight. He has significant nausea and vomiting since yesterday. Also started developing hematuria. Buckner catheter still in place. Pertinent positives and negatives as discussed above, a complete review of systems was performed and all other systems are negative. Vitals Signs Reviewed. General: nontoxic, no distress, appears at stated age, Buckner catheter in place with hematuria Derm: warm, dry Head: atraumatic, normocephalic, symmetric Eyes: EOMI, no lid lag, anicteric sclera Mouth: no lip lesion, mucus membranes moist Cardiovascular: S1S2 reg, no murmur Lungs: CTA bilateral, no rhonchi, no rales , no accessory muscle use, supplemental oxygen Abdominal: soft, nontender to palpation, no guarding, no appreciable organomegaly Ext: no gross muscle atrophy, 2+ pitting edema, no contractures Neuro: CN II-XI grossly intact, no focal neuro deficits Psych: Alert, oriented, appropriate affect Data Reviewed Today: Pertinent Labs: WBC 8.2, hemoglobin 11.8, potassium 3.2, creatinine 0.69 Imaging: Brain CT from yesterday did not show any acute process. Assessment and Plan: Patient needs close monitoring. Prognosis guarded. Acute hypoxic respiratory failure Acute right lower lobe non-massive pulmonary embolism Acute on chronic heart failure exacerbation, current EF 45-50% -Continue to wean oxygen -Continue Eliquis 10 mg twice a day for 1 week, then 5 mg twice a day -IV Lasix switched to oral Bumex 1 mg daily per cardiology -Pulmonology also following -Also on DuoNeb's every 4 hours Hypokalemia -40 mEq oral potassium given -Repeat BMP and magnesium, Acute hematuria -Likely aggravated by Buckner catheter placement -Urology note reviewed, outpatient follow-up -Hemoglobin stable -Repeat CBC tomorrow 7 mm right mid lung pulmonary nodule -Outpatient repeat surveillance CT Acute encephalopathy, resolved -Ativan 0.5 mg IV as needed, monitor for sedation -Pain control with morphine 4 mg IV as needed, monitor for sedation Nausea and vomiting -Zofran discontinued -Reglan 5 mg IV every 6 hours as needed ordered Hypertension -Coreg 25 mg twice a day DVT ppx: eliquis Code status: Anticipated discharge place: pending clinical course Anticipated discharge time: pending clinical course Objective - Vital Signs Vital signs: Vital Signs Temp 98.3 F 09/28/23 12:01 Pulse 75 09/28/23 12:01 Resp 20 09/28/23 12:01 BP 133/62 09/28/23 12:01 Pulse Ox 97 09/28/23 12:01 FiO2 40 09/25/23 11:29 Intake & Output 09/27/23 09/28/23 09/28/23 18:59 06:59 18:59 Intake Total 100 20 0 Output Total 3000 1250 1420 Balance -2900 -1230 -1420 Weight 110.5 kg 109 kg Intake: IV 20 Invasive Line 1 10 Invasive Line 2 10 Oral 100 0 Output: Urine 3000 1250 1420 Other: Voiding Method Indwelling Catheter Indwelling Catheter Indwelling Catheter - Labs CBC & Chem 7: 09/28/23 08:55 09/28/23 08:55 Labs: Abnormal Lab Results - Last 24 Hours (Table) 09/27/23 09/28/23 09/28/23 Range/Units 19:12 08:55 08:55 RBC 3.60 L 3.74 L (3.80-5.40) m/uL Lymphocytes # 0.7 L 0.7 L (1.0-4.8) k/uL Potassium 3.2 L (3.5-5.1) mmol/L Chloride 92 L (98-107) mmol/L Carbon Dioxide 40 H (22-30) mmol/L BUN 19 H (7-17) mg/dL
[2023-09-28] MEDS: METOCLOPRAMIDE 5 MG/ML 2 ML VIAL IVP PRN (12:18)
--- NOTE | 2023-09-28 13:50 | P.PN ---
Subjective Progress Note Date: 09/28/23 Principal diagnosis: Shortness of breath. I am seeing this patient in consultation today 09/27/2023 after she was brought in for acute shortness of breath and altered mental status. Patient is a 83-year-old white female past medical history significant for congestive heart failure, chronic lower extremity swelling, hypertension, obesity, and is a remote ex-smoker. Her primary care provider is currently a Dr. Kilpatrick on ., but she is looking for a local PCP. On September 25, the patient had an episode of acute dyspnea accompanied with altered mental status. This was witnessed by the patient's niece, and started approximately 4 hours prior to arrival to the hospital. Found to be in Afib RVR on arrival. Intially, patient required BIPAP support in the ER. Chest CTA on arrival demonstrated segmental and subsegmental emboli within the right basilar lower lobe. No obvious CT evidence of right heart strain. Patient was started on high intensity heparin protocol. A PTT is therapeutic. There was also evidence of cardiomegaly, pulmonary vascular congestion, generalized anasarca, pulmonary hypertension, moderate right and small left pleural effusions. In addition, there was a 7 mm right mid lung pulmonary nodule. NT proBNP was elevated at 5540. Patient does have history of heart failure, she takes Bumex 1 mg daily and Zaroxolyn every other day at home. Patient was started on Lasix 40 mg twice a day. Patient does have significant lower extremity edema with chronic venous stasis changes. Bilateral lower extremity venous Doppler negative for DVT. Most recent CBC from yesterday: WBC count 8.1, hemoglobin 10.9, hematocrit 34.8, platelets 165. BMP from yesterday: Unremarkable. Troponins are mildly elevated at 0.071, 0.074, and 0.064 respectively. Patient is currently sitting up in bed, on 4 L/m nasal cannula, in no acute distress. She is now alert and oriented. She denies any previous personal or familial history of thromboembolic events, denies cancer history, denies recent surgery or prolonged travel. She is fairly sedentary at home. She does say she gets short of breath when lying flat and sleeps mostly in a recliner at home. Denies any chest pain, heart palpitations, or syncopal episodes. She has chronic lower extremity swelling. Overall, patient is hemodynamically stable. Progress note dated 09/28/2023. This is a 83-year-old female who was seen yesterday in consultation. She was brought to the emergency department, complaining of mental status changes, and acute shortness of breath. The patient was found to have both congestive heart failure, and a pulmonary embolism. Currently, she's feeling much better. She currently is on oxygen, at 3 L/m, by nasal cannula. She's not receiving any IV fluids. Her pro-calcitonin level was a bit elevated at 0.16. Currently labs include a white count 8.2, hemoglobin 11.8, hematocrit 36.5, with a normal platelet count. PTT is 27.3. Sodium 139, potassium 3.2, chlorides 92, CO2 40, anion gap normal, BUN 19, creatinine 0.69. The patient's glucose 98. Calcium is 9.0. Objective - Vital Signs Vital signs: Vital Signs Temp 98.3 F 09/28/23 12:01 Pulse 75 09/28/23 12:01 Resp 20 09/28/23 12:01 BP 133/62 09/28/23 12:01 Pulse Ox 97 09/28/23 12:01 FiO2 40 09/25/23 11:29 Intake & Output 09/27/23 09/28/23 09/28/23 18:59 06:59 18:59 Intake Total 100 20 0 Output Total 3000 1250 1420 Balance -2900 -1230 -1420 Weight 110.5 kg 109 kg Intake: IV 20 Invasive Line 1 10 Invasive Line 2 10 Oral 100 0 Output: Urine 3000 1250 1420 Other: Voiding Method Indwelling Catheter Indwelling Catheter Indwelling Catheter - Exam No acute distress, oriented 3. Currently, the patient's on 3 L by nasal cannula. Saturations are 97%. HEENT examination is grossly unremarkable. Mucous membranes are moist. No oral lesions. Neck supple. Full range of motion. No adenopathy thyromegaly or neck vein distention. Cardiovascular examination reveals regular rhythm rate. S1-S2 normal. No S3 or S4. No discernible murmur noted. Heart rate 75 bpm. Heart sounds are distant. Lungs reveal mild crackles at the bases. No wheezes. No rhonchi. 3 L saturation is 97%. Breath sounds are equal bilaterally. Abdomen soft bowel sounds are heard. No masses or tenderness. Extremities are intact. No cyanosis clubbing or edema. Skin is without rash or lesion. Neurologic examination is brief but nonfocal. - Labs CBC & Chem 7: 09/28/23 08:55 09/28/23 08:55 Labs: Abnormal Lab Results - Last 24 Hours (Table) 09/27/23 09/28/23 09/28/23 Range/Units 19:12 08:55 08:55 RBC 3.60 L 3.74 L (3.80-5.40) m/uL Lymphocytes # 0.7 L 0.7 L (1.0-4.8) k/uL Potassium 3.2 L (3.5-5.1) mmol/L Chloride 92 L (98-107) mmol/L Carbon Dioxide 40 H (22-30) mmol/L BUN 19 H (7-17) mg/dL Assessment and Plan Assessment: Acute right lower lobe segmental and subsegmental pulmonary emboli. No CT evidence of right-sided heart strain. Suspected CHF exacerbation, unknown type. Chest CTA demonstrated cardiomegaly, pulmonary vessel congestion, moderate right and small left pleural effusions. NT proBNP elevated at 5540. Acute hypoxemic respiratory failure, secondary to above. Incidentally found 7 mm right pulmonary nodule, no prior imaging for comparison. New-onset atrial fibrillation with rapid ventricular rate, currently better controlled ventricular response. Elevated troponins, flat, not consistent with ACS. Likely related to supply/demand mismatch. Benign essential hypertension. Obesity, with a BMI of 39.3 kg/m. Remote history of tobacco smoking. Plan: Plan dated 09/28/2023. Currently, the patient appears be doing better. Yesterday, she was on BiPAP support. Currently, she is on oxygen at 2 L by nasal cannula. The patient is without any distress. Her pro-calcitonin level is 0.16. Labs, x-rays, and medications are reviewed. The patient is currently on Eliquis. We will continue to follow make recommendations along the way. Labs, x-rays, and all me dications are reviewed. Prognosis is certainly guarded. Time with Patient: Less than 30
[2023-09-28] MEDS: ACETAMINOPHEN TAB 325 MG TAB PO PRN (15:26)
[2023-09-29] MEDS: IPRATROPIUM-ALBUTEROL 3 ML NEB INHALATION SCH ×5 (04:40→21:06)
[2023-09-29] MEDS: carvediloL 12.5 MG TAB PO SCH ×2 (06:43→18:10)
[2023-09-29] MEDS: PANTOPRAZOLE 40 MG TABLET PO SCH (06:43)
[2023-09-29 08:41] LABS: Basophils % (A) 0 %; Eosinophils # (A) 0.1 k/uL (0-0.7); Eosinophils % (A) 2 %; HCT 36.7 % (34.0-46.0); Hypochromasia Slight; Lymphocytes # (A) 0.8 k/uL (1.0-4.8); Lymphocytes % (A) 11 %; MCH 31.8 pg (25.0-35.0); MCHC 32.7 g/dL (31.0-37.0); MCV 97.2 fL (80.0-100.0); Mean Platelet Volume 8.7; Monocytes # (A) 0.6 k/uL (0-1.0); Monocytes % (A) 8 %; Neutrophils % (A) 77 %; Platelet Count 163 k/uL (150-450); RBC 3.77 m/uL (3.80-5.40); RDW 13.7 % (11.5-15.5); WBC 7.9 k/uL (3.8-10.6)
[2023-09-29] MEDS: Apixaban Initiation Dose--VTE 5 MG TAB PO SCH ×2 (09:13→21:02)
[2023-09-29] MEDS: BUMETANIDE 1 MG TAB PO SCH (09:13)
[2023-09-29] MEDS: METOCLOPRAMIDE 5 MG/ML 2 ML VIAL IVP PRN (09:16)
[2023-09-29 09:37] LABS: African American GFR (CKD) >90 (>60 ml/min/1.73 sqM); Blood Urea Nitrogen 20 mg/dL (7-17); Calcium 8.7 mg/dL (8.4-10.2); Chloride 93 mmol/L (98-107); Glucose 92 mg/dL (74-99); Magnesium 1.8 mg/dL (1.6-2.3); Non-African American GFR(CKD) 84 (>60 ml/min/1.73 sqM); Potassium 3.4 mmol/L (3.5-5.1); Sodium 139 mmol/L (137-145)
[2023-09-29 09:43] LABS: Anion Gap 11 mmol/L
[2023-09-29 09:47] LABS: Carbon Dioxide 35 mmol/L (22-30)
[2023-09-29] MEDS ORDERED: POTASSIUM CHLORIDE ER 20 MEQ TAB.ER PO STA (11:40)
--- NOTE | 2023-09-29 11:41 | P.PN ---
Subjective Progress Note Date: 09/29/23 Hospital Course: 83-year-old female with history of systolic CHF, hypertension presenting with shortness of breath. On initial presentation, patient was hypoxic requiring BiPAP, hypertensive, and tachycardic. WBC up to 12.3, troponin elevated to 0.074. Respiratory viral panel negative. Right bundle branch block, frequent PACs. Chest x-ray showed evidence of congestive heart failure. Small pleural effusions bilaterally. Chest CTA pulmonary embolism and segmental and subsegmental branch of right basilar lower lobe., 7 mm right mid lung pulmonary nodule. Lower extremity Dopplers negative for DVTs. Patient was also in new onset atrial fibrillation with RVR. Admitted for acute pulmonary embolism, A. fib RVR, acute CHF exacerbation. Cardiology was consulted. She was started on IV heparin drip, and IV Lasix. Heparin drip discontinued, started on Eliquis. Pulmonology also consulted. Respiratory function better, patient on 3 L. Subjective: Patient seen and examined at bedside. No acute events overnight. He has significant nausea and vomiting since yesterday. Vomiting has subsided, now having mostly nausea. Also started developing hematuria, which is improving. Buckner catheter still in place. Pertinent positives and negatives as discussed above, a complete review of systems was performed and all other systems are negative. Vitals Signs Reviewed. General: nontoxic, no distress, appears at stated age, Buckner catheter in place with hematuria Derm: warm, dry Head: atraumatic, normocephalic, symmetric Eyes: EOMI, no lid lag, anicteric sclera Mouth: no lip lesion, mucus membranes moist Cardiovascular: S1S2 reg, no murmur Lungs: CTA bilateral, no rhonchi, no rales , no accessory muscle use, supplemental oxygen Abdominal: soft, nontender to palpation, no guarding, no appreciable organomegaly Ext: no gross muscle atrophy, 2+ pitting edema, no contractures Neuro: CN II-XI grossly intact, no focal neuro deficits Psych: Alert, oriented, appropriate affect Data Reviewed Today: Pertinent Labs: WBC 7.9, hemoglobin 12, potassium 2.4, magnesium 1.8, creatinine 0.61 Imaging: No new imaging Assessment and Plan: Patient needs close monitoring. Prognosis guarded. Acute hypoxic respiratory failure Acute right lower lobe non-massive pulmonary embolism Acute on chronic heart failure exacerbation, current EF 45-50% NSTEMI, likely type 2 -Continue to wean oxygen -Continue Eliquis 10 mg twice a day for 1 week, then 5 mg twice a day -Continue oral Bumex 1 mg daily per cardiology -Pulmonology also following -Also on DuoNeb's every 4 hours Hypokalemia -40 mEq oral potassium given -Repeat BMP and magnesium tomorrow Acute hematuria, resolving -Likely aggravated by Buckner catheter placement -Urology consulted, recommended outpatient follow-up -Hemoglobin stable 7 mm right mid lung pulmonary nodule -Outpatient repeat surveillance CT Acute encephalopathy, resolved -Ativan 0.5 mg IV as needed, monitor for sedation -Pain control with morphine 4 mg IV as needed, monitor for sedation Nausea and vomiting -Reglan 5 mg IV every 6 hours as needed Hypertension -Coreg 25 mg twice a day DVT ppx: eliquis Code status: Anticipated discharge place: pending clinical course Anticipated discharge time: pending clinical course Objective - Vital Signs Vital signs: Vital Signs Temp 98.0 F 09/29/23 04:39 Pulse 85 09/29/23 11:29 Resp 18 09/29/23 04:39 BP 127/75 09/29/23 04:39 Pulse Ox 97 09/29/23 04:39 FiO2 40 09/25/23 11:29 Intake & Output 09/28/23 09/29/23 09/29/23 18:59 06:59 18:59 Intake Total 0 Output Total 1420 600 Balance -1420 -600 Intake: Oral 0 Output: Urine 1420 600 Other: Voiding Method Indwelling Catheter Indwelling Catheter - Labs CBC & Chem 7: 09/29/23 08:22 09/29/23 08:22 Labs: Abnormal Lab Results - Last 24 Hours (Table) 09/29/23 09/29/23 Range/Units 08:22 08:22 RBC 3.77 L (3.80-5.40) m/uL Lymphocytes # 0.8 L (1.0-4.8) k/uL Potassium 3.4 L (3.5-5.1) mmol/L Chloride 93 L (98-107) mmol/L Carbon Dioxide 35 H (22-30) mmol/L BUN 20 H (7-17) mg/dL
--- NOTE | 2023-09-29 12:48 | P.PN ---
Subjective HISTORY OF PRESENT ILLNESS: HPI: Patient is an 83-year-old female with history of hypertension, congestive heart failure, who presented to the hospital via the family secondary to complaining of shortness of breath. Patient is a recent [place] city [place] the area, and her niece who was at the bedside states that she just moved into the area 2 days ago. She reports that when they came to check on her yesterday, she was demonstrating significant shortness of breath, as well as decreased mentation. She was able to tell him that she's been feeling short of breath for the last couple of days. They at that time called EMS and had the patient transported the hospital for evaluation. Niece reports that the patient has been compliant with her medications. In the emergency department the patient was found to be somewhat agitated and confused, and required BiPAP to be placed to maintain adequate oxygen saturation and to calm her breathing. Patient was found to have a significantly elevated blood pressure at 194/102 on arrival. Patient was found to be in atrial fibrillation on EKG. Patient was st arted on Lasix, heparin, and was given one dose of enalapril IV which did bring her heart rate down into more controlled rate, as well as controlling her blood pressure much better. This morning upon evaluation the patient is found in the bed, confused and combative. The family is at the bedside who reiterates the emergency department storied. Patient is noted to have chronic leg edema and 2+. Vital signs are much more controlled at this time, blood pressure is within normal limits, heart rate is controlled on the monitor. REVIEW OF LABS, ECG & MEDICAL DATA: LABS: White count 12.2, hemoglobin 11.2, platelets 164, d-dimer 3.83, sodium 140, potassium 4.9, BUN 21, creatinine 0.83, calcium 8.8, magnesium 2.1, troponin-0.014, 0.071, 0.074, 0.064, BNP 7,180 EKG: Atrial fibrillation with rapid ventricular response IMAGING: Chest x-ray dated 09/25/2023 demonstrates findings suggestive of c ongestive heart failure, there is cardiomegaly, vascular congestion, and bilateral interstitial opacities suggesting pulmonary edema, small pleural effusions bilaterally. VITALS: Temp 97.4, pulse 71, respirations 20, blood pressure 112/82, O2 saturation 98% on BiPAP 09/26/2023 Patient examined this morning at the bedside in the emergency room. Patient currently denies chest pain or pressure. She reports mild shortness of breath. She underwent CTA yesterday revealing segmental and subsegmental ranch pulmonary emboli to the basilar right lower lobe, cardiomegaly, pulmonary hypertension, moderate right and small left pleural effusions. She was started on IV heparin. Bedside telemetry reveals atrial fibrillation with heart rate [place] [address]. She remains on IV Lasix mg every 12 hours. 09/27/2023 Patient examined this morning at the bedside. Patient states she is feeling better today. She denies chest pain or pressure. She denies shortness of breath. Telemetry reveals atrial fibrillation with a controlled heart rate in the 60s. She remains on IV heparin. Echocardiogram completed revealing ejection fraction 45-50%, mild right ventricular dilatation, right ventricular systolic pressure within normal limits, mild TR, mild pulmonic regurgitation, mild mitral regurgitation. September 28 2023 Patient examined this morning at the bedside. Patient currently denies chest pain or pressure. She denies dryness of breath. She remains on IV Lasix 40 mg every 12 hours. She reports feeling nauseated this morning with dry heaves. She has been receiving Zofran. The patient also has hematuria noted in her Buckner catheter this morning. Urology was consulted with no further recommendations from their standpoint at this time. She remains on Eliquis. Hemoglobin stable at 11.8. Telemetry reveals atrial fibrillation with controlled ventricular rate 09/29/2023 Patient examined this morning. She is sitting up in a chair. She continues to report nausea but no vomiting. She denies chest pain or pressure. She denies shortness of breath. She has been transitioned to oral diuretics starting this morning. Patient's hematuria is improving. She remains anticoagulated on Eliquis. Hemoglobin is stable. Telemetry reveals atrial fibrillation with controlled ventricular rate in the 80s. PHYSICAL EXAM: VITAL SIGNS: Reviewed. GENERAL: Well-developed in no acute distress. NECK: Supple. No JVD or thyromegaly LUNGS: Respirations even and unlabored. Lungs with expiratory wheezing noted HEART: Irregular rate and rhythm. S1 and S2 heard. EXTREMITIES: Normal range of motion. No clubbing or cyanosis. Peripheral pulses intact. Trace bilateral lower extremity edema ASSESSMENT: Acute right lower lobe pulmonary embolism New-onset atrial fibrillation with RVR, currently rate controlled Acute on chronic heart failure with mildly reduced EF, 45-50% Possible pneumonia Altered mental status, improved Acute hypoxic respiratory failure Hematuria PLAN: Continue Eliquis. Monitor hemoglobin. Urology consultation for hematuria with no further recommendations from their standpoint at this time Continue additional cardiac medications Daily weights, accurate I&O, monitor kidney function Patient is currently stable from a cardiac perspective Further recommendations pending patient's course Nurse practitioner note has been reviewed by physician. Signing provider agrees with the documented findings, assessment, and plan of care. Objective - Vital Signs Vital signs: Vital Signs Temp 98.0 F 09/29/23 04:39 Pulse 85 09/29/23 11:29 Resp 18 09/29/23 08:00 BP 123/79 09/29/23 08:00 Pulse Ox 95 09/29/23 08:00 FiO2 40 09/25/23 11:29 Intake & Output 09/28/23 09/29/23 09/29/23 18:59 06:59 18:59 Intake Total 0 Output Total 1420 600 Balance -1420 -600 Intake: Oral 0 Output: Urine 1420 600 Other: Voiding Method Indwelling Catheter Indwelling Catheter Indwelling Catheter - Labs CBC & Chem 7: 09/29/23 08:22 09/29/23 08:22 Labs: Abnormal Lab Results - Last 24 Hours (Table) 09/29/23 09/29/23 Range/Units 08:22 08:22 RBC 3.77 L (3.80-5.40) m/uL Lymphocytes # 0.8 L (1.0-4.8) k/uL Potassium 3.4 L (3.5-5.1) mmol/L Chloride 93 L (98-107) mmol/L Carbon Dioxide 35 H (22-30) mmol/L BUN 20 H (7-17) mg/dL
--- NOTE | 2023-09-29 13:23 | P.PN ---
Subjective Progress Note Date: 09/29/23 Principal diagnosis: Shortness of breath. I am seeing this patient in consultation today 09/27/2023 after she was brought in for acute shortness of breath and altered mental status. Patient is a 83-year-old white female past medical history significant for congestive heart failure, chronic lower extremity swelling, hypertension, obesity, and is a remote ex-smoker. Her primary care provider is currently a Dr. Kilpatrick on ., but she is looking for a local PCP. On September 25, the patient had an episode of acute dyspnea accompanied with altered mental status. This was witnessed by the patient's niece, and started approximately 4 hours prior to arrival to the hospital. Found to be in Afib RVR on arrival. Intially, patient required BIPAP support in the ER. Chest CTA on arrival demonstrated segmental and subsegmental emboli within the right basilar lower lobe. No obvious CT evidence of right heart strain. Patient was started on high intensity heparin protocol. A PTT is therapeutic. There was also evidence of cardiomegaly, pulmonary vascular congestion, generalized anasarca, pulmonary hypertension, moderate right and small left pleural effusions. In addition, there was a 7 mm right mid lung pulmonary nodule. NT proBNP was elevated at 5540. Patient does have history of heart failure, she takes Bumex 1 mg daily and Zaroxolyn every other day at home. Patient was started on Lasix 40 mg twice a day. Patient does have significant lower extremity edema with chronic venous stasis changes. Bilateral lower extremity venous Doppler negative for DVT. Most recent CBC from yesterday: WBC count 8.1, hemoglobin 10.9, hematocrit 34.8, platelets 165. BMP from yesterday: Unremarkable. Troponins are mildly elevated at 0.071, 0.074, and 0.064 respectively. Patient is currently sitting up in bed, on 4 L/m nasal cannula, in no acute distress. She is now alert and oriented. She denies any previous personal or familial history of thromboembolic events, denies cancer history, denies recent surgery or prolonged travel. She is fairly sedentary at home. She does say she gets short of breath when lying flat and sleeps mostly in a recliner at home. Denies any chest pain, heart palpitations, or syncopal episodes. She has chronic lower extremity swelling. Overall, patient is hemodynamically stable. Progress note dated 09/28/2023. This is a 83-year-old female who was seen yesterday in consultation. She was brought to the emergency department, complaining of mental status changes, and acute shortness of breath. The patient was found to have both congestive heart failure, and a pulmonary embolism. Currently, she's feeling much better. She currently is on oxygen, at 3 L/m, by nasal cannula. She's not receiving any IV fluids. Her pro-calcitonin level was a bit elevated at 0.16. Currently labs include a white count 8.2, hemoglobin 11.8, hematocrit 36.5, with a normal platelet count. PTT is 27.3. Sodium 139, potassium 3.2, chlorides 92, CO2 40, anion gap normal, BUN 19, creatinine 0.69. The patient's glucose 98. Calcium is 9.0. Progress note dated 09/29/2023. 3-year-old female seen today in room 360. The patient is on 2 L of oxygen. She continues on Bumex, Coreg, and Eliquis. The patient is not having any respirato ry issues at this time. She's not receiving any IV fluids. She is complaining of GI issues. Labs today include a white count 7.9, hemoglobin 12, hematocrit 36.7, and a normal platelet count. Sodium 139, potassium 3.4, chlorides 93, CO2 35, BUN 20, creatinine 0.61. Objective - Vital Signs Vital signs: Vital Signs Temp 98.0 F 09/29/23 04:39 Pulse 85 09/29/23 11:29 Resp 18 09/29/23 08:00 BP 123/79 09/29/23 08:00 Pulse Ox 95 09/29/23 08:00 FiO2 40 09/25/23 11:29 Intake & Output 09/28/23 09/29/23 09/29/23 18:59 06:59 18:59 Intake Total 0 Output Total 1420 600 Balance -1420 -600 Intake: Oral 0 Output: Urine 1420 600 Other: Voiding Method Indwelling Catheter Indwelling Catheter Indwelling Catheter - Exam No acute distress, oriented 3. Currently, the patient's on 2 L by nasal cannula. Saturations are 96 %. HEENT examination is grossly unremarkable. Mucous membranes are moist. No oral lesions. Neck supple. Full range of motion. No adenopathy thyromegaly or neck vein distention. Cardiovascular examination reveals regular rhythm rate. S1-S2 normal. No S3 or S4. No discernible murmur noted. Heart rate 85 bpm. Heart sounds are distant. Lungs reveal mild crackles at the bases. No wheezes. No rhonchi. 2 L saturation is 96%. Breath sounds are equal bilaterally. Abdomen soft bowel sounds are heard. No masses or tenderness. Extremities are intact. No cyanosis clubbing or edema. Skin is without rash or lesion. Neurologic examination is brief but nonfocal. - Labs CBC & Chem 7: 09/29/23 08:22 09/29/23 08:22 Labs: Abnormal Lab Results - Last 24 Hours (Table) 09/29/23 09/29/23 Range/Units 08:22 08:22 RBC 3.77 L (3.80-5.40) m/uL Lymphocytes # 0.8 L (1.0-4.8) k/uL Potassium 3.4 L (3.5-5.1) mmol/L Chloride 93 L (98-107) mmol/L Carbon Dioxide 35 H (22-30) mmol/L BUN 20 H (7-17) mg/dL Assessment and Plan Assessment: Acute right lower lobe segmental and subsegmental pulmonary emboli. No CT evidence of right-sided heart strain. Suspected CHF exacerbation, unknown type. Chest CTA demonstrated cardiomegaly, pulmonary vessel congestion, moderate right and small left pleural effusions. NT proBNP elevated at 5540. Acute hypoxemic respiratory failure, secondary to above. Incidentally found 7 mm right pulmonary nodule, no prior imaging for comparison. New-onset atrial fibrillation with rapid ventricular rate, currently better controlled ventricular response. Elevated troponins, flat, not consistent with ACS. Likely related to supply/demand mismatch. Benign essential hypertension. Obesity, with a BMI of 39.3 kg/m. Remote history of tobacco smoking. Plan: Plan dated 09/28/2023. Currently, the patient appears be doing better. Yesterday, she was on BiPAP support. Currently, she is on oxygen at 2 L by nasal cannula. The patient is without any distress. Her pro-calcitonin level is 0.16. Labs, x-rays, and medications are reviewed. The patient is currently on Eliquis. We will continue to follow make recommendations along the way. Labs, x-rays, and all medications are reviewed. Prognosis is certainly guarded. Plan dated 09/29/2023. The patient is doing reasonably well. She denies any shortness breath, cough, wheezing, chest tightness, or phlegm production. Most of her issues related to the GI tract. She continues on 2 L of oxygen. No IV fluids. She continues on her usual cardiac medications including her factor X a inhibitor, Bumex, and Coreg. Labs, x-rays, and medications are reviewed. Prognosis is guarded. We will continue to follow, and make recommendations along the way. Time with Patient: Less than 30
[2023-09-29] MEDS: MORPHINE SULFATE 4 MG/ML SYRINGE IV PRN (13:34)
[2023-09-29] MEDS: GABAPENTIN 300 MG CAP PO SCH ×2 (18:10→23:05)
[2023-09-30] MEDS: IPRATROPIUM-ALBUTEROL 3 ML NEB INHALATION SCH ×7 (00:21→23:47)
[2023-09-30] MEDS: carvediloL 12.5 MG TAB PO SCH ×2 (06:36→17:14)
[2023-09-30] MEDS: PANTOPRAZOLE 40 MG TABLET PO SCH (06:36)
[2023-09-30] MEDS: GABAPENTIN 300 MG CAP PO SCH ×3 (08:38→21:01)
[2023-09-30] MEDS: Apixaban Initiation Dose--VTE 5 MG TAB PO SCH ×2 (08:38→21:00)
[2023-09-30] MEDS: BUMETANIDE 1 MG TAB PO SCH (08:38)
[2023-09-30 08:39] LABS: African American GFR (CKD) >90 (>60 ml/min/1.73 sqM); Anion Gap 10 mmol/L; Blood Urea Nitrogen 25 mg/dL (7-17); Calcium 8.8 mg/dL (8.4-10.2); Carbon Dioxide 35 mmol/L (22-30); Chloride 92 mmol/L (98-107); Glucose 79 mg/dL (74-99); Magnesium 1.9 mg/dL (1.6-2.3); Non-African American GFR(CKD) 85 (>60 ml/min/1.73 sqM); Potassium 3.3 mmol/L (3.5-5.1); Sodium 137 mmol/L (137-145)
[2023-09-30] MEDS ORDERED: ZINC OXIDE PASTE (Z-GUARD) 1 APPLIC TOPICAL PRN (10:50)
[2023-09-30] MEDS ORDERED: POTASSIUM CHLORIDE ER 20 MEQ TAB.ER PO STA (12:45)
--- NOTE | 2023-09-30 12:46 | P.PN ---
Subjective Progress Note Date: 09/30/23 Hospital Course: 83-year-old female with history of systolic CHF, hypertension presenting with shortness of breath. On initial presentation, patient was hypoxic requiring BiPAP, hypertensive, and tachycardic. WBC up to 12.3, troponin elevated to 0.074. Respiratory viral panel negative. Right bundle branch block, frequent PACs. Chest x-ray showed evidence of congestive heart failure. Small pleural effusions bilaterally. Chest CTA pulmonary embolism and segmental and subsegmental branch of right basilar lower lobe., 7 mm right mid lung pulmonary nodule. Lower extremity Dopplers negative for DVTs. Patient was also in new onset atrial fibrillation with RVR. Admitted for acute pulmonary embolism, A. fib RVR, acute CHF exacerbation. Cardiology was consulted. She was started on IV heparin drip, and IV Lasix. Heparin drip discontinued, started on Eliquis. Also on oral diuretics now. Pulmonology also consulted. Respiratory function better, patient on 3 L. also having diarrhea. Subjective: Patient seen and examined at bedside. No acute events overnight. Nausea is improved, now started developing watery diarrhea. Still has not been getting out of the bed. Has a Buckner catheter in place. Continues to have hematuria. Pertinent positives and negatives as discussed above, a complete review of systems was performed and all other systems are negative. Vitals Signs Reviewed. General: nontoxic, no distress, appears at stated age, Buckner catheter in place with hematuria Derm: warm, dry Head: atraumatic, normocephalic, symmetric Eyes: EOMI, no lid lag, anicteric sclera Mouth: no lip lesion, mucus membranes moist Cardiovascular: S1S2 reg, no murmur Lungs: CTA bilateral, no rhonchi, no rales , no accessory muscle use, supplemental oxygen Abdominal: soft, nontender to palpation, no guarding, no appreciable organomegaly Ext: no gross muscle atrophy, 2+ pitting edema, no contractures Neuro: CN II-XI grossly intact, no focal neuro deficits Psych: Alert, oriented, appropriate affect Data Reviewed Today: Pertinent Labs: Potassium 3.3, magnesium 1.9, creatinine 0.5 Imaging: No new imaging Assessment and Plan: Patient needs close monitoring. Prognosis guarded. Acute hypoxic respiratory failure Acute right lower lobe non-massive pulmonary embolism Acute on chronic heart failure exacerbation, current EF 45-50% NSTEMI, likely type 2 -Continue to wean oxygen -Continue Eliquis 10 mg twice a day for 1 week, then 5 mg twice a day -Continue oral Bumex 1 mg daily per cardiology -Pulmonology also following -Also on DuoNeb's every 4 hours Hypokalemia -40 mEq oral potassium given -Repeat BMP and magnesium tomorrow Acute hematuria, resolving -Likely aggravated by Buckner catheter placement -Urology consulted, recommended outpatient follow-up -Hemoglobin stable 7 mm right mid lung pulmonary nodule -Outpatient repeat surveillance CT Acute encephalopathy, resolved -Ativan 0.5 mg IV as needed, monitor for sedation -Pain control with morphine 4 mg IV as needed, monitor for sedation Nausea and vomiting -Reglan 5 mg IV every 6 hours as needed -Nausea resolved Diarrhea -C. diff pending Hypertension -Coreg 25 mg twice a day Neuropathy - gabapentin 600 3 times a day DVT ppx: eliquis Code status: Anticipated discharge place: pending clinical course Anticipated discharge time: pending clinical course Objective - Vital Signs Vital signs: Vital Signs Temp 98 F 09/30/23 11:41 Pulse 77 09/30/23 11:41 Resp 17 09/30/23 11:41 BP 128/81 09/30/23 11:41 Pulse Ox 95 09/30/23 11:41 FiO2 40 09/25/23 11:29 Intake & Output 09/29/23 09/30/23 09/30/23 18:59 06:59 18:59 Output Total 1200 525 Balance -1200 -525 Weight 104.5 kg Output: Urine 1200 525 Other: Voiding Method Indwelling Catheter Indwelling Catheter Indwelling Catheter # Bowel Movements 1 - Labs CBC & Chem 7: 09/29/23 08:22 09/30/23 07:33 Labs: Abnormal Lab Results - Last 24 Hours (Table) 09/30/23 Range/Units 07:33 Potassium 3.3 L (3.5-5.1) mmol/L Chloride 92 L (98-107) mmol/L Carbon Dioxide 35 H (22-30) mmol/L BUN 25 H (7-17) mg/dL
[2023-09-30] MEDS ORDERED: LOPERAMIDE 2 MG CAP PO PRN (13:16)
[2023-09-30] MEDS ORDERED: LOPERAMIDE 2 MG CAP PO STA (13:16)
[2023-09-30] MEDS: METOCLOPRAMIDE 5 MG/ML 2 ML VIAL IVP PRN (13:22)
--- NOTE | 2023-09-30 13:31 | P.PN ---
Subjective HISTORY OF PRESENT ILLNESS: HPI: Patient is an 83-year-old female with history of hypertension, congestive heart failure, who presented to the hospital via the family secondary to complaining of shortness of breath. Patient is a recent [place] city to the area, and her niece who was at the bedside states that she just moved into the area 2 days ago. She reports that when they came to check on her yesterday, she was demonstrating significant shortness of breath, as well as decreased mentation. She was able to tell him that she's been feeling short of breath for the last couple of days. They at that time called EMS and had the patient transported the hospital for evaluation. Niece reports that the patient has been compliant with her medications. In the emergency department the patient was found to be somewhat agitated and confused, and required BiPAP to be placed to maintain adequate oxygen saturation and to calm her breathing. Patient was found to have a significantly elevated blood pressure at 194/102 on arrival. Patient was found to be in atrial fibrillation on EKG. Patient was st arted on Lasix, heparin, and was given one dose of enalapril IV which did bring her heart rate down into more controlled rate, as well as controlling her blood pressure much better. This morning upon evaluation the patient is found in the bed, confused and combative. The family is at the bedside who reiterates the emergency department storied. Patient is noted to have chronic leg edema and 2+. Vital signs are much more controlled at this time, blood pressure is within normal limits, heart rate is controlled on the monitor. REVIEW OF LABS, ECG & MEDICAL DATA: LABS: White count 12.2, hemoglobin 11.2, platelets 164, d-dimer 3.83, sodium 140, potassium 4.9, BUN 21, creatinine 0.83, calcium 8.8, magnesium 2.1, troponin-0.014, 0.071, 0.074, 0.064, BNP 7,180 EKG: Atrial fibrillation with rapid ventricular response IMAGING: Chest x-ray dated 09/25/2023 demonstrates findings suggestive of c ongestive heart failure, there is cardiomegaly, vascular congestion, and bilateral interstitial opacities suggesting pulmonary edema, small pleural effusions bilaterally. VITALS: Temp 97.4, pulse 71, respirations 20, blood pressure 112/82, O2 saturation 98% on BiPAP 09/26/2023 Patient examined this morning at the bedside in the emergency room. Patient currently denies chest pain or pressure. She reports mild shortness of breath. She underwent CTA yesterday revealing segmental and subsegmental ranch pulmonary emboli to the basilar right lower lobe, cardiomegaly, pulmonary hypertension, moderate right and small left pleural effusions. She was started on IV heparin. Bedside telemetry reveals atrial fibrillation with heart rate between [id number]. She remains on IV Lasix mg every 12 hours. 09/27/2023 Patient examined this morning at the bedside. Patient states she is feeling better today. She denies chest pain or pressure. She denies shortness of breath. Telemetry reveals atrial fibrillation with a controlled heart rate in the 60s. She remains on IV heparin. Echocardiogram completed revealing ejection fraction 45-50%, mild right ventricular dilatation, right ventricular systolic pressure within normal limits, mild TR, mild pulmonic regurgitation, mild mitral regurgitation. September 28 2023 Patient examined this morning at the bedside. Patient currently denies chest pain or pressure. She denies dryness of breath. She remains on IV Lasix 40 mg every 12 hours. She reports feeling nauseated this morning with dry heaves. She has been receiving Zofran. The patient also has hematuria noted in her Buckner catheter this morning. Urology was consulted with no further recommendations from their standpoint at this time. She remains on Eliquis. Hemoglobin stable at 11.8. Telemetry reveals atrial fibrillation with controlled ventricular rate 09/29/2023 Patient examined this morning. She is sitting up in a chair. She continues to report nausea but no vomiting. She denies chest pain or pressure. She denies shortness of breath. She has been transitioned to oral diuretics starting this morning. Patient's hematuria is improving. She remains anticoagulated on Eliquis. Hemoglobin is stable. Telemetry reveals atrial fibrillation with controlled ventricular rate in the 80s. 09/30/2023 Patient examined this morning. She is sitting up in the chair. Patient currently denies chest pain or pressure. She denies shortness of breath. She has a Buckner catheter with hematuria noted, although improving. She remains on Eliquis. Telemetry reveals atrial fibrillation with controlled ventricular rate in the 70s. PHYSICAL EXAM: VITAL SIGNS: Reviewed. GENERAL: Well-developed in no acute distress. NECK: Supple. No JVD or thyromegaly LUNGS: Respirations even and unlabored. Lungs with expiratory wheezing noted HEART: Irregular rate and rhythm. S1 and S2 heard. EXTREMITIES: Normal range of motion. No clubbing or cyanosis. Peripheral pulses intact. Trace bilateral lower extremity edema ASSESSMENT: Acute right lower lobe pulmonary embolism New-onset atrial fibrillation with RVR, currently rate controlled Acute on chronic heart failure with mildly reduced EF, 45-50% Possible pneumonia Altered mental status, improved Acute hypoxic respiratory failure Hematuria PLAN: Continue Eliquis. Monitor hemoglobin. Continue additional cardiac medications Continue telemetry monitoring Patient is currently stable from a cardiac perspective We will sign off. Please reconsult if needed. Nurse practitioner note has been reviewed by physician. Signing provider agrees with the documented findings, assessment, and plan of care. Objective - Vital Signs Vital signs: Vital Signs Temp 98 F 09/30/23 11:41 Pulse 77 09/30/23 11:41 Resp 17 09/30/23 11:41 BP 128/81 09/30/23 11:41 Pulse Ox 95 09/30/23 11:41 FiO2 40 09/25/23 11:29 Intake & Output 09/29/23 09/30/23 09/30/23 18:59 06:59 18:59 Output Total 1200 525 Balance -1200 -525 Weight 104.5 kg Output: Urine 1200 525 Other: Voiding Method Indwelling Catheter Indwelling Catheter Indwelling Catheter # Bowel Movements 1 - Labs CBC & Chem 7: 09/29/23 08:22 09/30/23 07:33 Labs: Abnormal Lab Results - Last 24 Hours (Table) 09/30/23 Range/Units 07:33 Potassium 3.3 L (3.5-5.1) mmol/L Chloride 92 L (98-107) mmol/L Carbon Dioxide 35 H (22-30) mmol/L BUN 25 H (7-17) mg/dL
--- NOTE | 2023-09-30 13:32 | P.PN ---
Subjective Progress Note Date: 09/30/23 Principal diagnosis: Shortness of breath. I am seeing this patient in consultation today 09/27/2023 after she was brought in for acute shortness of breath and altered mental status. Patient is a 83-year-old white female past medical history significant for congestive heart failure, chronic lower extremity swelling, hypertension, obesity, and is a remote ex-smoker. Her primary care provider is currently a Dr. Kilpatrick on , but she is looking for a local PCP. On September 25, the patient had an episode of acute dyspnea accompanied with altered mental status. This was witnessed by the patient's niece, and started approximately 4 hours prior to arrival to the hospital. Found to be in Afib RVR on arrival. Intially, patient required BIPAP support in the ER. Chest CTA on arrival demonstrated segmental and subsegmental emboli within the right basilar lower lobe. No obvious CT evidence of right heart strain. Patient was started on high intensity heparin protocol. A PTT is therapeutic. There was also evidence of cardiomegaly, pulmonary vascular congestion, generalized anasarca, pulmonary hypertension, moderate right and small left pleural effusions. In addition, there was a 7 mm right mid lung pulmonary nodule. NT proBNP was elevated at 5540. Patient does have history of heart failure, she takes Bumex 1 mg daily and Zaroxolyn every other day at home. Patient was started on Lasix 40 mg twice a day. Patient does have significant lower extremity edema with chronic venous stasis changes. Bilateral lower extremity venous Doppler negative for DVT. Most recent CBC from yesterday: WBC count 8.1, hemoglobin 10.9, hematocrit 34.8, platelets 165. BMP from yesterday: Unremarkable. Troponins are mildly elevated at 0.071, 0.074, and 0.064 respectively. Patient is currently sitting up in bed, on 4 L/m nasal cannula, in no acute distress. She is now alert and oriented. She denies any previous personal or familial history of thromboembolic events, denies cancer history, denies recent surgery or prolonged travel. She is fairly sedentary at home. She does say she gets short of breath when lying flat and sleeps mostly in a recliner at home. Denies any chest pain, heart palpitations, or syncopal episodes. She has chronic lower extremity swelling. Overall, patient is hemodynamically stable. Progress note dated 09/28/2023. This is a 83-year-old female who was seen yesterday in consultation. She was brought to the emergency department, complaining of mental status changes, and acute shortness of breath. The patient was found to have both congestive heart failure, and a pulmonary embolism. Currently, she's feeling much better. She currently is on oxygen, at 3 L/m, by nasal cannula. She's not receiving any IV fluids. Her pro-calcitonin level was a bit elevated at 0.16. Currently labs include a white count 8.2, hemoglobin 11.8, hematocrit 36.5, with a normal platelet count. PTT is 27.3. Sodium 139, potassium 3.2, chlorides 92, CO2 40, anion gap normal, BUN 19, creatinine 0.69. The patient's glucose 98. Calcium is 9.0. Progress note dated 09/29/2023. 3-year-old female seen today in room 360. The patient is on 2 L of oxygen. She continues on Bumex, Coreg, and Eliquis. The patient is not having any respirato ry issues at this time. She's not receiving any IV fluids. She is complaining of GI issues. Labs today include a white count 7.9, hemoglobin 12, hematocrit 36.7, and a normal platelet count. Sodium 139, potassium 3.4, chlorides 93, CO2 35, BUN 20, creatinine 0.61. Progress note dated 09/30/2023. 83-year-old female seen in room 316. Currently, the patient remains on oxygen at 2 L. No IV fluids. Yesterday she was complaining of abdominal complaints. Not having those today. Current labs include a sodium 137, potassium 3.3, chlorides 92, CO2 35, BUN 25, creatinine 0.59. She denies any shortness of breath, cough, wheezing, chest tightness, or phlegm production. Objective - Vital Signs Vital signs: Vital Signs Temp 98 F 09/30/23 11:41 Pulse 77 09/30/23 11:41 Resp 17 09/30/23 11:41 BP 128/81 09/30/23 11:41 Pulse Ox 95 09/30/23 11:41 FiO2 40 09/25/23 11:29 Intake & Output 09/29/23 09/30/2324 18:59 06:59 18:59 Output Total 1200 525 Balance -1200 -525 Weight 104.5 kg Output: Urine 1200 525 Other: Voiding Method Indwelling Catheter Indwelling Catheter Indwelling Catheter # Bowel Movements 1 - Exam No acute distress, oriented 3. Currently, the patient's on 2 L by nasal cannula. Saturations are 95 %. HEENT examination is grossly unremarkable. Mucous membranes are moist. No oral lesions. Neck supple. Full range of motion. No adenopathy thyromegaly or neck vein distention. Cardiovascular examination reveals regular rhythm rate. S1-S2 normal. No S3 or S4. No discernible murmur noted. Heart rate 77 bpm. Heart sounds are distant. Lungs reveal mild crackles at the bases. No wheezes. No rhonchi. 2 L saturation is 95 %. Breath sounds are equal bilaterally. Abdomen soft bowel sounds are heard. No masses or tenderness. Extremities are intact. No cyanosis clubbing or edema. Skin is without rash or lesion. Neurologic examination is brief but nonfocal. - Labs CBC & Chem 7: 09/29/23 08:22 09/30/23 07:33 Labs: Abnormal Lab Results - Last 24 Hours (Table) 09/30/23 Range/Units 07:33 Potassium 3.3 L (3.5-5.1) mmol/L Chloride 92 L (98-107) mmol/L Carbon Dioxide 35 H (22-30) mmol/L BUN 25 H (7-17) mg/dL Assessment and Plan Assessment: Acute right lower lobe segmental and subsegmental pulmonary emboli. No CT evidence of right-sided heart strain. Suspected CHF exacerbation, unknown type. Chest CTA demonstrated cardiomegaly, pulmonary vessel congestion, moderate right and small left pleural effusions. NT proBNP elevated at 5540. Acute hypoxemic respiratory failure, secondary to above. Incidentally found 7 mm right pulmonary nodule, no prior imaging for comparison. New-onset atrial fibrillation with rapid ventricular rate, currently better controlled ventricular response. Elevated troponins, flat, not consistent with ACS. Likely related to supply/demand mismatch. Benign essential hypertension. Obesity, with a BMI of 39.3 kg/m. Remote history of tobacco smoking. Plan: Plan dated 09/28/2023. Currently, the patient appears be doing better. Yesterday, she was on BiPAP support. Currently, she is on oxygen at 2 L by nasal cannula. The patient is without any distress. Her pro-calcitonin level is 0.16. Labs, x-rays, and medications are reviewed. The patient is currently on Eliquis. We will continue to follow make recommendations along the way. Labs, x-rays, and all medications are reviewed. Prognosis is certainly guarded. Plan dated 09/29/2023. The patient is doing reasonably well. She denies any shortness breath, cough, wheezing, chest tightness, or phlegm production. Most of her issues related to the GI tract. She continues on 2 L of oxygen. No IV fluids. She continues on her usual cardiac medications including her factor X a inhibitor, Bumex, and Coreg. Labs, x-rays, and medications are reviewed. Prognosis is guarded. We will continue to follow, and make recommendations along the way. Plan dated 09/30/2023. The patient's doing well from the pulmonary standpoint. She denies any worsening or more severe shortness breath, cough, wheezing, chest tightness, or phlegm production. She also denies any chest pain or pressure. Yesterday, she had GI issues, but states that it is better as well today. Labs, x-rays, and medications are reviewed. Her vital signs are stable. Her 2 L saturations are between 95 and 97%. We will continue to follow. Her prognosis is guarded. Time with Patient: Less than 30
[2023-10-01] MEDS: IPRATROPIUM-ALBUTEROL 3 ML NEB INHALATION SCH ×6 (03:08→21:20)
[2023-10-01] MEDS: PANTOPRAZOLE 40 MG TABLET PO SCH (06:16)
[2023-10-01] MEDS: carvediloL 12.5 MG TAB PO SCH ×2 (06:16→16:46)
[2023-10-01] MEDS: Apixaban Initiation Dose--VTE 5 MG TAB PO SCH ×2 (08:42→21:29)
[2023-10-01] MEDS: GABAPENTIN 300 MG CAP PO SCH ×3 (08:42→21:29)
[2023-10-01] MEDS: BUMETANIDE 1 MG TAB PO SCH (08:42)
--- NOTE | 2023-10-01 11:44 | P.PN ---
Subjective Progress Note Date: 10/01/23 Hospital Course: 83-year-old female with history of systolic CHF, hypertension presenting with shortness of breath. On initial presentation, patient was hypoxic requiring BiPAP, hypertensive, and tachycardic. WBC up to 12.3, troponin elevated to 0.074. Respiratory viral panel negative. Right bundle branch block, frequent PACs. Chest x-ray showed evidence of congestive heart failure. Small pleural effusions bilaterally. Chest CTA pulmonary embolism and segmental and subsegmental branch of right basilar lower lobe., 7 mm right mid lung pulmonary nodule. Lower extremity Dopplers negative for DVTs. Patient was also in new onset atrial fibrillation with RVR. Admitted for acute pulmonary embolism, A. fib RVR, acute CHF exacerbation. Cardiology was consulted. She was started on IV heparin drip, and IV Lasix. Heparin drip discontinued, started on Eliquis. Also on oral diuretics now. Pulmonology also consulted. Respiratory function better, patient on 3 L. also having diarrhea, now improving. Subjective: Patient seen and examined at bedside. No acute events overnight. Nausea and diarrhea has improved. Has a Buckner catheter in place. Continues to have hematuria. She is still having difficulty getting up at due to her neuropathy, likely need rehab. Pertinent positives and negatives as discussed above, a complete review of systems was performed and all other systems are negative. Vitals Signs Reviewed. General: nontoxic, no distress, appears at stated age, Buckner catheter in place with hematuria Derm: warm, dry Head: atraumatic, normocephalic, symmetric Eyes: EOMI, no lid lag, anicteric sclera Mouth: no lip lesion, mucus membranes moist Cardiovascular: S1S2 reg, no murmur Lungs: CTA bilateral, no rhonchi, no rales , no accessory muscle use, supplem ental oxygen Abdominal: soft, nontender to palpation, no guarding, no appreciable organomegaly Ext: no gross muscle atrophy, 2+ pitting edema, no contractures Neuro: CN II-XI grossly intact, no focal neuro deficits Psych: Alert, oriented, appropriate affect Data Reviewed Today: Pertinent Labs: BMP pending, will be reviewed when available Imaging: No new imaging Assessment and Plan: Acute hypoxic respiratory failure Acute right lower lobe non-massive pulmonary embolism Acute on chronic heart failure exacerbation, current EF 45-50% NSTEMI, likely type 2 -Continue to wean oxygen -Continue Eliquis 10 mg twice a day for 1 week, then 5 mg twice a day -Continue oral Bumex 1 mg daily per cardiology -Pulmonology also following -Also on DuoNeb's every 4 hours Hypokalemia - BMP and magnesium pending from today, will be reviewed when available Acute hematuria, resolving -Likely aggravated by Buckner catheter placement -Urology consulted, recommended outpatient follow-up -Hemoglobin stable 7 mm right mid lung pulmonary nodule -Outpatient repeat surveillance CT Acute encephalopathy, resolved -Ativan 0.5 mg IV as needed, monitor for sedation -Pain control with morphine 4 mg IV as needed, monitor for sedation Nausea and vomiting, resolved -Reglan 5 mg IV every 6 hours as needed Diarrhea, resolving -C. diff negative -Loperamide as needed Hypertension -Coreg 25 mg twice a day Neuropathy - gabapentin 600 3 times a day DVT ppx: eliquis Code status: FC Anticipated discharge place: Likely subacute rehab Anticipated discharge time: pending clinical course Objective - Vital Signs Vital signs: Vital Signs Temp 97.7 F 10/01/23 08:00 Pulse 80 10/01/23 11:35 Resp 18 10/01/23 08:00 BP 124/66 10/01/23 08:00 Pulse Ox 95 10/01/23 08:12 FiO2 40 09/25/23 11:29 Intake & Output 09/30/23 10/01/23 10/01/23 18:59 06:59 18:59 Intake Total 222 Output Total 525 400 Balance -303 -400 Weight 104.5 kg 107.5 kg Intake: Oral 222 Output: Urine 525 400 Other: Voiding Method Indwelling Catheter Indwelling Catheter Indwelling Catheter # Bowel Movements 1 1 - Labs CBC & Chem 7: 09/29/23 08:22 09/30/23 07:33
--- NOTE | 2023-10-01 12:53 | P.PN ---
Subjective Progress Note Date: 10/01/23 Principal diagnosis: Shortness of breath. I am seeing this patient in consultation today 09/27/2023 after she was brought in for acute shortness of breath and altered mental status. Patient is a 83-year-old white female past medical history significant for congestive heart failure, chronic lower extremity swelling, hypertension, obesity, and is a remote ex-smoker. Her primary care provider is currently a Dr. Kilpatrick on , but she is looking for a local PCP. On September 25, the patient had an episode of acute dyspnea accompanied with altered mental status. This was witnessed by the patient's niece, and started approximately 4 hours prior to arrival to the hospital. Found to be in Afib RVR on arrival. Intially, patient required BIPAP support in the ER. Chest CTA on arrival demonstrated segmental and subsegmental emboli within the right basilar lower lobe. No obvious CT evidence of right heart strain. Patient was started on high intensity heparin protocol. A PTT is therapeutic. There was also evidence of cardiomegaly, pulmonary vascular congestion, generalized anasarca, pulmonary hypertension, moderate right and small left pleural effusions. In addition, there was a 7 mm right mid lung pulmonary nodule. NT proBNP was elevated at 5540. Patient does have history of heart failure, she takes Bumex 1 mg daily and Zaroxolyn every other day at home. Patient was started on Lasix 40 mg twice a day. Patient does have significant lower extremity edema with chronic venous stasis changes. Bilateral lower extremity venous Doppler negative for DVT. Most recent CBC from yesterday: WBC count 8.1, hemoglobin 10.9, hematocrit 34.8, platelets 165. BMP from yesterday: Unremarkable. Troponins are mildly elevated at 0.071, 0.074, and 0.064 respectively. Patient is currently sitting up in bed, on 4 L/m nasal cannula, in no acute distress. She is now alert and oriented. She denies any previous personal or familial history of thromboembolic events, denies cancer history, denies recent surgery or prolonged travel. She is fairly sedentary at home. She does say she gets short of breath when lying flat and sleeps mostly in a recliner at home. Denies any chest pain, heart palpitations, or syncopal episodes. She has chronic lower extremity swelling. Overall, patient is hemodynamically stable. Progress note dated 09/28/2023. This is a 83-year-old female who was seen yesterday in consultation. She was brought to the emergency department, complaining of mental status changes, and acute shortness of breath. The patient was found to have both congestive heart failure, and a pulmonary embolism. Currently, she's feeling much better. She currently is on oxygen, at 3 L/m, by nasal cannula. She's not receiving any IV fluids. Her pro-calcitonin level was a bit elevated at 0.16. Currently labs include a white count 8.2, hemoglobin 11.8, hematocrit 36.5, with a normal platelet count. PTT is 27.3. Sodium 139, potassium 3.2, chlorides 92, CO2 40, anion gap normal, BUN 19, creatinine 0.69. The patient's glucose 98. Calcium is 9.0. Progress note dated 09/29/2023. 3-year-old female seen today in room 360. The patient is on 2 L of oxygen. She continues on Bumex, Coreg, and Eliquis. The patient is not having any respirato ry issues at this time. She's not receiving any IV fluids. She is complaining of GI issues. Labs today include a white count 7.9, hemoglobin 12, hematocrit 36.7, and a normal platelet count. Sodium 139, potassium 3.4, chlorides 93, CO2 35, BUN 20, creatinine 0.61. Progress note dated 09/30/2023. 83-year-old female seen in room 316. Currently, the patient remains on oxygen at 2 L. No IV fluids. Yesterday she was complaining of abdominal complaints. Not having those today. Current labs include a sodium 137, potassium 3.3, chlorides 92, CO2 35, BUN 25, creatinine 0.59. She denies any shortness of breath, cough, wheezing, chest tightness, or phlegm production. Progress note dated 10/01/2023. 83-year-old female seen today in room 360. The patient is sitting in the chair, next to her hospital bed. She is in no distress. She denies any shortness of breath, cough, wheezing, chest tightness, or phlegm production. She also denies any chest pain or pressure. She's currently on 2 L of oxygen. She's not receiving any IV fluids. No new laboratory data today. C. difficile studies, from September 30, were negative. Objective - Vital Signs Vital signs: Vital Signs Temp 98 F 10/01/23 12:40 Pulse 82 10/01/23 12:40 Resp 18 10/01/23 12:40 BP 116/67 10/01/23 12:40 Pulse Ox 92 L 10/01/23 12:40 FiO2 40 09/25/23 11:29 Intake & Output 09/30/23 10/01/23 10/01/23 18:59 06:59 18:59 Intake Total 222 Output Total 525 400 Balance -303 -400 Weight 104.5 kg 107.5 kg Intake: Oral 222 Output: Urine 525 400 Other: Voiding Method Indwelling Catheter Indwelling Catheter Indwelling Catheter # Bowel Movements 1 1 - Exam No acute distress, oriented 3. Currently, the patient's on 2 L by nasal cannula. Saturations are 94 %. HEENT examination is grossly unremarkable. Mucous membranes are moist. No oral lesions. Neck supple. Full range of motion. No adenopathy thyromegaly or neck vein distention. Cardiovascular examination reveals regular rhythm rate. S1-S2 normal. No S3 or S4. No discernible murmur noted. Heart rate 82 bpm. Heart sounds are distant. Lungs reveal mild crackles at the bases. No wheezes. No rhonchi. 2 L saturation is 94 %. Breath sounds are equal bilaterally. Abdomen soft bowel sounds are heard. No masses or tenderness. Extremities are intact. No cyanosis clubbing or edema. Skin is without rash or lesion. Neurologic examination is brief but nonfocal. - Labs CBC & Chem 7: 09/29/23 08:22 09/30/23 07:33 Assessment and Plan Assessment: Acute right lower lobe segmental and subsegmental pulmonary emboli. No CT evidence of right-sided heart strain. Suspected CHF exacerbation, unknown type. Chest CTA demonstrated cardiomegaly, pulmonary vessel congestion, moderate right and small left pleural effusions. NT proBNP elevated at 5540. Acute hypoxemic respiratory failure, secondary to above. Incidentally found 7 mm right pulmonary nodule, no prior imaging for comparison. New-onset atrial fibrillation with rapid ventricular rate, currently better controlled ventricular response. Elevated troponins, flat, not consistent with ACS. Likely related to supply/demand mismatch. Benign essential hypertension. Obesity, with a BMI of 39.3 kg/m. Remote history of tobacco smoking. Plan: Plan dated 09/28/2023. Currently, the patient appears be doing better. Yesterday, she was on BiPAP support. Currently, she is on oxygen at 2 L by nasal cannula. The patient is without any distress. Her pro-calcitonin level is 0.16. Labs, x-rays, and medications are reviewed. The patient is currently on Eliquis. We will continue to follow make recommendations along the way. Labs, x-rays, and all medications are reviewed. Prognosis is certainly guarded. Plan dated 09/29/2023. The patient is doing reasonably well. She denies any shortness breath, cough, wheezing, chest tightness, or phlegm production. Most of her issues related to the GI tract. She continues on 2 L of oxygen. No IV fluids. She continues on her usual cardiac medications including her factor X a inhibitor, Bumex, and Coreg. Labs, x-rays, and medications are reviewed. Prognosis is guarded. We will continue to follow, and make recommendations along the way. Plan dated 09/30/2023. The patient's doing well from the pulmonary standpoint. She denies any worsening or more severe shortness breath, cough, wheezing, chest tightness, or phlegm production. She also denies any chest pain or pressure. Yesterday, she had GI issues, but states that it is better as well today. Labs, x-rays, and medications are reviewed. Her vital signs are stable. Her 2 L saturations are between 95 and 97%. We will continue to follow. Her prognosis is guarded. Plan dated 10/01/2023. The patient is seen today in room 360. As mentioned, she continues on oxygen at 2 L. She's not receiving any IV fluids she sitting in a chair, next to her hospital bed. Labs, x-rays, and medications are all reviewed. Clinically, the patient's doing much better. She denies any chest pain or pressure. She denies any cough, wheezing, chest tightness, or phlegm production. Also, she denies any GI issues, as she was complaining of GI problems a few days ago. We will continue to follow make recommendations along the way. Time with Patient: Less than 30
[2023-10-01 13:42] LABS: Anion Gap 11 mmol/L; Blood Urea Nitrogen 25 mg/dL (7-17); Carbon Dioxide 33 mmol/L (22-30); Chloride 93 mmol/L (98-107); Glucose 86 mg/dL (74-99); Potassium 3.2 mmol/L (3.5-5.1); Sodium 137 mmol/L (137-145)
[2023-10-01 13:43] LABS: African American GFR (CKD) >90 (>60 ml/min/1.73 sqM); Calcium 8.6 mg/dL (8.4-10.2); Magnesium 1.9 mg/dL (1.6-2.3); Non-African American GFR(CKD) 82 (>60 ml/min/1.73 sqM)
[2023-10-01] MEDS ORDERED: POTASSIUM CHLORIDE ER 20 MEQ TAB.ER PO STA (14:43)
[2023-10-01] MEDS: ACETAMINOPHEN TAB 325 MG TAB PO PRN (22:46)
[2023-10-02] MEDS: IPRATROPIUM-ALBUTEROL 3 ML NEB INHALATION SCH ×6 (00:21→21:20)
[2023-10-02] MEDS: carvediloL 12.5 MG TAB PO SCH ×2 (06:22→17:27)
[2023-10-02] MEDS: PANTOPRAZOLE 40 MG TABLET PO SCH (06:22)
[2023-10-02 09:29] LABS: African American GFR (CKD) >90 (>60 ml/min/1.73 sqM); Anion Gap 6 mmol/L; Blood Urea Nitrogen 28 mg/dL (7-17); Calcium 8.5 mg/dL (8.4-10.2); Carbon Dioxide 37 mmol/L (22-30); Chloride 95 mmol/L (98-107); Glucose 100 mg/dL (74-99); Magnesium 1.9 mg/dL (1.6-2.3); Non-African American GFR(CKD) 79 (>60 ml/min/1.73 sqM); Potassium 2.9 mmol/L (3.5-5.1); Sodium 138 mmol/L (137-145)
[2023-10-02] MEDS: GABAPENTIN 300 MG CAP PO SCH ×3 (09:54→21:31)
[2023-10-02] MEDS: Apixaban Initiation Dose--VTE 5 MG TAB PO SCH ×2 (09:54→21:31)
[2023-10-02] MEDS: BUMETANIDE 1 MG TAB PO SCH (09:54)
[2023-10-02] MEDS ORDERED: POTASSIUM CHLORIDE ER 20 MEQ TAB.ER PO STA ×2 (12:46→13:31)
--- NOTE | 2023-10-02 12:46 | P.PN ---
Subjective Progress Note Date: 10/02/23 Hospital Course: 83-year-old female with history of systolic CHF, hypertension presenting with shortness of breath. On initial presentation, patient was hypoxic requiring BiPAP, hypertensive, and tachycardic. WBC up to 12.3, troponin elevated to 0.074. Respiratory viral panel negative. Right bundle branch block, frequent PACs. Chest x-ray showed evidence of congestive heart failure. Small pleural effusions bilaterally. Chest CTA pulmonary embolism and segmental and subsegmental branch of right basilar lower lobe., 7 mm right mid lung pulmonary nodule. Lower extremity Dopplers negative for DVTs. Patient was also in new onset atrial fibrillation with RVR. Admitted for acute pulmonary embolism, A. fib RVR, acute CHF exacerbation. Cardiology was consulted. She was started on IV heparin drip, and IV Lasix. Heparin drip discontinued, started on Eliquis. Also on oral diuretics now. Pulmonology also consulted. Respiratory function better, patient on 3 L. also having diarrhea, now improving. Subjective: Patient seen and examined at bedside. No acute events overnight. Buckner catheter in place. GI symptoms have improved. Pertinent positives and negatives as discussed above, a complete review of systems was performed and all other systems are negative. Vitals Signs Reviewed. General: nontoxic, no distress, appears at stated age, Buckner catheter in place with hematuria Derm: warm, dry Head: atraumatic, normocephalic, symmetric Eyes: EOMI, no lid lag, anicteric sclera Mouth: no lip lesion, mucus membranes moist Cardiovascular: S1S2 reg, no murmur Lungs: CTA bilateral, no rhonchi, no rales , no accessory muscle use, supplemental oxygen Abdominal: soft, nontender to palpation, no guarding, no appreciable organomegaly Ext: no gross muscle atrophy, 2+ pitting edema, no contractures Neuro: CN II-XI grossly intact, no focal neuro deficits Psych: Alert, oriented, appropriate affect Data Reviewed Today: Pertinent Labs: Potassium 2.9, magnesium 1.9 Imaging: No new imaging Assessment and Plan: Acute hypoxic respiratory failure Acute right lower lobe non-massive pulmonary embolism Acute on chronic heart failure exacerbation, current EF 45-50% NSTEMI, likely type 2 -Continue to wean oxygen -Continue Eliquis 10 mg twice a day for 1 week, then 5 mg twice a day -Continue oral Bumex 1 mg daily per cardiology -Pulmonology also following -Also on DuoNeb's every 4 hours Hypokalemia -40 mEq IV potassium, 40 oral -Repeat BMP and magnesium tomorrow Acute hematuria, resolving -Likely aggravated by Buckner catheter placement -Urology consulted, recommended outpatient follow-up -Hemoglobin stable 7 mm right mid lung pulmonary nodule -Outpatient repeat surveillance CT Acute encephalopathy, resolved -Ativan 0.5 mg IV as needed, monitor for sedation -Pain control with morphine 4 mg IV as needed, monitor for sedation Nausea and vomiting, resolved -Reglan 5 mg IV every 6 hours as needed Diarrhea, resolving -C. diff negative -Loperamide as needed Hypertension -Coreg 25 mg twice a day Neuropathy - gabapentin 600 3 times a day DVT ppx: eliquis Code status: Anticipated discharge place: Likely subacute rehab Anticipated discharge time: pending clinical course Objective - Vital Signs Vital signs: Vital Signs Temp 97.8 F 10/02/23 09:50 Pulse 80 10/02/23 11:25 Resp 16 10/02/23 09:50 BP 130/67 10/02/23 09:50 Pulse Ox 93 L 10/02/23 09:50 FiO2 40 09/25/23 11:29 Intake & Output 10/01/23 10/02/23 10/02/23 18:59 06:59 18:59 Intake Total 70 240 Output Total 700 300 Balance -630 -300 240 Weight 107 kg Intake: Oral 70 240 Output: Urine 700 300 Other: Voiding Method Indwelling Catheter Indwelling Catheter Indwelling Catheter # Bowel Movements 1 - Labs CBC & Chem 7: 09/29/23 08:22 10/02/23 08:19 Labs: Abnormal Lab Results - Last 24 Hours (Table) 10/01/23 10/02/23 Range/Units 11:25 08:19 Potassium 3.2 L 2.9 L (3.5-5.1) mmol/L Chloride 93 L 95 L (98-107) mmol/L Carbon Dioxide 33 H 37 H (22-30) mmol/L BUN 25 H 28 H (7-17) mg/dL Glucose 100 H (74-99) mg/dL
[2023-10-02] MEDS ORDERED: POTASSIUM CHLORIDE 10 MEQ in WATER FOR INJECTION 1 100ML.BAG IVPB SCH (13:00)
--- NOTE | 2023-10-02 14:12 | P.PN ---
Subjective Progress Note Date: 10/02/23 Principal diagnosis: Shortness of breath. I am seeing this patient in consultation today 09/27/2023 after she was brought in for acute shortness of breath and altered mental status. Patient is a 83-year-old white female past medical history significant for congestive heart failure, chronic lower extremity swelling, hypertension, obesity, and is a remote ex-smoker. Her primary care provider is currently a Dr. Kilpatrick on , but she is looking for a local PCP. On September 25, the patient had an episode of acute dyspnea accompanied with altered mental status. This was witnessed by the patient's niece, and started approximately 4 hours prior to arrival to the hospital. Found to be in Afib RVR on arrival. Intially, patient required BIPAP support in the ER. Chest CTA on arrival demonstrated segmental and subsegmental emboli within the right basilar lower lobe. No obvious CT evidence of right heart strain. Patient was started on high intensity heparin protocol. A PTT is therapeutic. There was also evidence of cardiomegaly, pulmonary vascular congestion, generalized anasarca, pulmonary hypertension, moderate right and small left pleural effusions. In addition, there was a 7 mm right mid lung pulmonary nodule. NT proBNP was elevated at 5540. Patient does have history of heart failure, she takes Bumex 1 mg daily and Zaroxolyn every other day at home. Patient was started on Lasix 40 mg twice a day. Patient does have significant lower extremity edema with chronic venous stasis changes. Bilateral lower extremity venous Doppler negative for DVT. Most recent CBC from yesterday: WBC count 8.1, hemoglobin 10.9, hematocrit 34.8, platelets 165. BMP from yesterday: Unremarkable. Troponins are mildly elevated at 0.071, 0.074, and 0.064 respectively. Patient is currently sitting up in bed, on 4 L/m nasal cannula, in no acute distress. She is now alert and oriented. She denies any previous personal or familial history of thromboembolic events, denies cancer history, denies recent surgery or prolonged travel. She is fairly sedentary at home. She does say she gets short of breath when lying flat and sleeps mostly in a recliner at home. Denies any chest pain, heart palpitations, or syncopal episodes. She has chronic lower extremity swelling. Overall, patient is hemodynamically stable. Progress note dated 09/28/2023. This is a 83-year-old female who was seen yesterday in consultation. She was brought to the emergency department, complaining of mental status changes, and acute shortness of breath. The patient was found to have both congestive heart failure, and a pulmonary embolism. Currently, she's feeling much better. She currently is on oxygen, at 3 L/m, by nasal cannula. She's not receiving any IV fluids. Her pro-calcitonin level was a bit elevated at 0.16. Currently labs include a white count 8.2, hemoglobin 11.8, hematocrit 36.5, with a normal platelet count. PTT is 27.3. Sodium 139, potassium 3.2, chlorides 92, CO2 40, anion gap normal, BUN 19, creatinine 0.69. The patient's glucose 98. Calcium is 9.0. Progress note dated 09/29/2023. 3-year-old female seen today in room 360. The patient is on 2 L of oxygen. She continues on Bumex, Coreg, and Eliquis. The patient is not having any respirato ry issues at this time. She's not receiving any IV fluids. She is complaining of GI issues. Labs today include a white count 7.9, hemoglobin 12, hematocrit 36.7, and a normal platelet count. Sodium 139, potassium 3.4, chlorides 93, CO2 35, BUN 20, creatinine 0.61. Progress note dated 09/30/2023. 83-year-old female seen in room 316. Currently, the patient remains on oxygen at 2 L. No IV fluids. Yesterday she was complaining of abdominal complaints. Not having those today. Current labs include a sodium 137, potassium 3.3, chlorides 92, CO2 35, BUN 25, creatinine 0.59. She denies any shortness of breath, cough, wheezing, chest tightness, or phlegm production. Progress note dated 10/01/2023. 83-year-old female seen today in room 360. The patient is sitting in the chair, next to her hospital bed. She is in no distress. She denies any shortness of breath, cough, wheezing, chest tightness, or phlegm production. She also denies any chest pain or pressure. She's currently on 2 L of oxygen. She's not receiving any IV fluids. No new laboratory data today. C. difficile studies, from September 30, were negative. Progress note dated 10/02/2023. 83-year-old female seen today in room 360. Currently, the patient continues on oxygen at 2 L. The patient's not receiving any IV fluids. The patient is sitting in a chair, next to her hospital bed. She denies any shortness of breath, cough, wheezing, chest tightness, or phlegm production. She was initially admitted with a diagnosis of pulmonary embolism, and CHF. Currently laboratory data includes a sodium 138, potassium 2.9, chlorides 95, CO2 37, BUN 28, creatinine 0.71. Glucose 100. Calcium is 8.5, and magnesium is 1.9. Objective - Vital Signs Vital signs: Vital Signs Temp 97.8 F 10/02/23 09:50 Pulse 80 10/02/23 11:25 Resp 16 10/02/23 09:50 BP 130/67 10/02/23 09:50 Pulse Ox 93 L 10/02/23 09:50 FiO2 40 09/25/23 11:29 Intake & Output 10/01/23 10/02/23 10/02/23 18:59 06:59 18:59 Intake Total 70 240 Output Total 700 300 Balance -630 -300 240 Weight 107 kg Intake: Oral 70 240 Output: Urine 700 300 Other: Voiding Method Indwelling Catheter Indwelling Catheter Indwelling Catheter # Bowel Movements 1 - Exam No acute distress, oriented 3. Currently, the patient's on 2 L by nasal cannula. Saturations are 93 %. HEENT examination is grossly unremarkable. Mucous membranes are moist. No oral lesions. Neck supple. Full range of motion. No adenopathy thyromegaly or neck vein distention. Cardiovascular examination reveals regular rhythm rate. S1-S2 normal. No S3 or S4. No discernible murmur noted. Heart rate 80 bpm. Heart sounds are distant. Lungs reveal mild crackles at the bases. No wheezes. No rhonchi. 2 L saturation is 93 %. Breath sounds are equal bilaterally. Abdomen soft bowel sounds are heard. No masses or tenderness. Extremities are intact. No cyanosis clubbing or edema. Skin is without rash or lesion. Neurologic examination is brief but nonfocal. - Labs CBC & Chem 7: 09/29/23 08:22 10/02/23 08:19 Labs: Abnormal Lab Results - Last 24 Hours (Table) 10/02/23 Range/Units 08:19 Potassium 2.9 L (3.5-5.1) mmol/L Chloride 95 L (98-107) mmol/L Carbon Dioxide 37 H (22-30) mmol/L BUN 28 H (7-17) mg/dL Glucose 100 H (74-99) mg/dL Assessment and Plan Assessment: Acute right lower lobe segmental and subsegmental pulmonary emboli. No CT evidence of right-sided heart strain. Suspected CHF exacerbation, unknown type. Chest CTA demonstrated cardiomegaly, pulmonary vessel congestion, moderate right and small left pleural effusions. NT proBNP elevated at 5540. Acute hypoxemic respiratory failure, secondary to above. Incidentally found 7 mm right pulmonary nodule, no prior imaging for comparison. New-onset atrial fibrillation with rapid ventricular rate, currently better controlled ventricular response. Elevated troponins, flat, not consistent with ACS. Likely related to supply/demand mismatch. Benign essential hypertension. Obesity, with a BMI of 39.3 kg/m. Remote history of tobacco smoking. Plan: Plan dated 09/28/2023. Currently, the patient appears be doing better. Yesterday, she was on BiPAP support. Currently, she is on oxygen at 2 L by nasal cannula. The patient is without any distress. Her pro-calcitonin level is 0.16. Labs, x-rays, and medications are reviewed. The patient is currently on Eliquis. We will continue to follow make recommendations along the way. Labs, x-rays, and all medications are reviewed. Prognosis is certainly guarded. Plan dated 09/29/2023. The patient is doing reasonably well. She denies any shortness breath, cough, wheezing, chest tightness, or phlegm production. Most of her issues related to the GI tract. She continues on 2 L of oxygen. No IV fluids. She continues on her usual cardiac medications including her factor X a inhibitor, Bumex, and Coreg. Labs, x-rays, and medications are reviewed. Prognosis is guarded. We will continue to follow, and make recommendations along the way. Plan dated 09/30/2023. The patient's doing well from the pulmonary standpoint. She denies any worsening or more severe shortness breath, cough, wheezing, chest tightness, or phlegm production. She also denies any chest pain or pressure. Yesterday, she had GI issues, but states that it is better as well today. Labs, x-rays, and medications are reviewed. Her vital signs are stable. Her 2 L saturations are between 95 and 97%. We will continue to follow. Her prognosis is guarded. Plan dated 10/01/2023. The patient is seen today in room 360. As mentioned, she continues on oxygen at 2 L. She's not receiving any IV fluids she sitting in a chair, next to her hospital bed. Labs, x-rays, and medications are all reviewed. Clinically, the patient's doing much better. She denies any chest pain or pressure. She denies any cough, wheezing, chest tightness, or phlegm production. Also, she denies any GI issues, as she was complaining of GI problems a few days ago. We will continue to follow make recommendations along the way. Plan dated 10/02/2023. The patient is again seen today in room 360. The patient continues on oxygen at 2 L. Saturations are between 93 and 94%. The patient is sitting in a chair, next to her hospital bed. She denies any shortness of breath, cough, wheezing, chest tightness, chest pain, or any symptoms for that matter. The patient is hoping to be discharged in the near future. Labs, x-rays, and mom medications are reviewed. The patient's overall prognosis remains guarded. The patient has been transitioned to a factor X a inhibitor. Time with Patient: Less than 30
[2023-10-02] MEDS: ACETAMINOPHEN TAB 325 MG TAB PO PRN (23:25)
[2023-10-03] MEDS: IPRATROPIUM-ALBUTEROL 3 ML NEB INHALATION SCH ×6 (01:08→23:21)
[2023-10-03] MEDS: carvediloL 12.5 MG TAB PO SCH ×2 (06:32→16:38)
[2023-10-03] MEDS: PANTOPRAZOLE 40 MG TABLET PO SCH (06:32)
[2023-10-03 08:16] LABS: African American GFR (CKD) 82 (>60 ml/min/1.73 sqM); Anion Gap 3 mmol/L; Blood Urea Nitrogen 27 mg/dL (7-17); Calcium 8.1 mg/dL (8.4-10.2); Carbon Dioxide 36 mmol/L (22-30); Chloride 99 mmol/L (98-107); Glucose 97 mg/dL (74-99); Magnesium 1.8 mg/dL (1.6-2.3); Non-African American GFR(CKD) 71 (>60 ml/min/1.73 sqM); Potassium 3.2 mmol/L (3.5-5.1); Sodium 138 mmol/L (137-145)
[2023-10-03] MEDS: Apixaban Initiation Dose--VTE 5 MG TAB PO SCH ×2 (08:40→21:14)
[2023-10-03] MEDS: BUMETANIDE 1 MG TAB PO SCH (08:40)
[2023-10-03] MEDS: GABAPENTIN 300 MG CAP PO SCH ×3 (08:40→21:14)
[2023-10-03] MEDS: ACETAMINOPHEN TAB 325 MG TAB PO PRN (09:55)
--- NOTE | 2023-10-03 10:46 | P.PN ---
Subjective Progress Note Date: 10/03/23 On 10/03/2023, the patient is being seen for a follow-up. Patient hospitalized for shortness of breath and mental status change. She is an 83-year-old female patient with known history of mild CHF hypertension and chronic lower extremity edema and the patient also has previous history of smoking. The patient was experiencing shortness of breath. The patient was found to be in A-fib RVR at the time of the nurse department visit and the patient was initially supported by BiPAP. CT angiogram showed segmental and subsegmental emboli in the lungs with involvement of the right basilar lower lobe. No evidence of any RV strain. Patient was started on IV heparin. Pro BNP was elevated and the patient was found to have a level of 5540 and the patient was started on diuretics Lasix 40 mg twice a day and Zaroxolyn. Troponins were minimally elevated with the highest level being at 0.07. The patient was on oxygen at 4 L/min nasal cannula. Echocardiogram was done and the patient was found to have an ejection fraction of 40 to 45%. Mild pulmonary hypertension as noted without any significant RV failure. The patient was subsequently weaned down to 2 L of oxygen by nasal cannula. Diuretic therapy in form of Bumex 1 mg p.o. daily. Zaroxolyn has been discontinued. The patient is also on Coreg for rate control. Overall, the patient is doing much better. She remains a chest fibrillation. Rate is controlled. Oxygen levels are also stable. The patient has been weaned off oxygen and currently she is on 2 L nasal cannula. Objective - Vital Signs Vital signs: Vital Signs Temp 97.7 F 10/03/23 08:00 Pulse 74 10/03/23 08:00 Resp 18 10/03/23 08:00 BP 90/56 10/03/23 08:00 Pulse Ox 97 10/03/23 08:00 FiO2 40 09/25/23 11:29 Intake & Output 10/02/23 10/03/23 10/03/23 18:59 06:59 18:59 Intake Total 358 420 Output Total 700 1000 Balance -342 -580 Weight 107.5 kg Intake: Oral 358 420 Output: Urine 700 1000 Other: Voiding Method Indwelling Catheter Indwelling Catheter Indwelling Catheter # Bowel Movements 2 - Exam No acute distress, oriented 3. Currently, the patient's on 2 L by nasal cannula. HEENT examination is grossly unremarkable. Mucous membranes are moist. No oral lesions. Neck supple. Full range of motion. No adenopathy thyromegaly or neck vein distention. Cardiovascular examination reveals irregular rhythm rate. S1-S2 normal. No S3 or S4. No discernible murmur noted. Lungs reveal mild crackles at the bases. No wheezes. No rhonchi. 2 L saturation is 93 %. Breath sounds are equal bilaterally. Abdomen soft bowel sounds are heard. No masses or tenderness. Extremities are intact. No cyanosis clubbing or edema. Skin is without rash or lesion. Neurologic examination is brief but nonfocal. - Labs CBC & Chem 7: 09/29/23 08:22 10/03/23 06:48 Labs: Abnormal Lab Results - Last 24 Hours (Table) 10/03/23 Range/Units 06:48 Potassium 3.2 L (3.5-5.1) mmol/L Carbon Dioxide 36 H (22-30) mmol/L BUN 27 H (7-17) mg/dL Calcium 8.1 L (8.4-10.2) mg/dL Assessment and Plan Plan: Assessment Acute shortness of breath with evidence of segmental and subsegmental pulmonary emboli involving the right lower lobe. No significant pulm hypertension or RV strain. No evidence of any RV failure at this point in time. In terms of a nticoagulation, the patient was switched to Eliquis per protocol 10 mg twice a day. Acute hypoxic respiratory failure, currently on 2 L of oxygen nasal cannula CHF with mild impairment of LV function with an EF of around 45%, proBNP level is elevated and the patient had small bilateral pleural effusion right more than left A-fib RVR, recovered and the patient is on Coreg and anticoagulation with Eliquis Hypertension Troponin leak secondary to above Obesity BMI of 39.3 Incidental 7 mm pulmonary nodule in the right lung, nonspecific findings that needs to be followed up Plan Continue anticoagulation, the patient is currently onEliquis Continue diuretics Improvement in lower extremity edema Patient remains itchy fibrillation with a controlled rate Overall she's feeling better Wean down FiO2 as tolerated to maintain saturation above 90% and the patient has been weaned down to 2 L of oxygen by nasal cannula
[2023-10-03] MEDS ORDERED: POTASSIUM CHLORIDE ER 20 MEQ TAB.ER PO STA (11:40)
--- NOTE | 2023-10-03 12:13 | P.PN ---
Subjective Progress Note Date: 10/03/23 Hospital Course: 83-year-old female with history of systolic CHF, hypertension presenting with shortness of breath. On initial presentation, patient was hypoxic requiring BiPAP, hypertensive, and tachycardic. WBC up to 12.3, troponin elevated to 0.074. Respiratory viral panel negative. Right bundle branch block, frequent PACs. Chest x-ray showed evidence of congestive heart failure. Small pleural effusions bilaterally. Chest CTA pulmonary embolism and segmental and subsegmental branch of right basilar lower lobe., 7 mm right mid lung pulmonary nodule. Lower extremity Dopplers negative for DVTs. Patient was also in new onset atrial fibrillation with RVR. Admitted for acute pulmonary embolism, A. fib RVR, acute CHF exacerbation. Cardiology was consulted. She was started on IV heparin drip, and IV Lasix. Heparin drip discontinued, started on Eliquis. Also on oral diuretics now. Pulmonology also consulted. Respiratory function better, patient on 3 L. also having diarrhea, now improving. Pending placement. Subjective: Patient seen and examined at bedside. No acute events overnight. Buckner catheter in place. GI symptoms have improved. Pertinent positives and negatives as discussed above, a complete review of systems was performed and all other systems are negative. Vitals Signs Reviewed. General: nontoxic, no distress, appears at stated age, Buckner catheter in place with hematuria Derm: warm, dry Head: atraumatic, normocephalic, symmetric Eyes: EOMI, no lid lag, anicteric sclera Mouth: no lip lesion, mucus membranes moist Cardiovascular: S1S2 reg, no murmur Lungs: CTA bilateral, no rhonchi, no rales , no accessory muscle use, supplemental oxygen Abdominal: soft, nontender to palpation, no guarding, no appreciable organomegaly Ext: no gross muscle atrophy, 2+ pitting edema, no contractures Neuro: CN II-XI grossly intact, no focal neuro deficits Psych: Alert, oriented, appropriate affect Data Reviewed Today: Pertinent Labs: Potassium 3.2, creatinine 0.70, magnesium 1.8 Imaging: No new imaging Assessment and Plan: Acute hypoxic respiratory failure, improved Acute right lower lobe non-massive pulmonary embolism Acute on chronic heart failure exacerbation, current EF 45-50%, improved NSTEMI, likely type 2 -Continue to wean oxygen -Continue Eliquis 10 mg twice a day for 1 week, then 5 mg twice a day -Continue oral Bumex 1 mg daily per cardiology -Pulmonology note reviewed, continue current management -Also on DuoNeb's every 4 hours Hypokalemia - 40 mEq oral potassium given today -Repeat BMP and magnesium tomorrow Acute hematuria, resolved -Likely aggravated by Buckner catheter placement -Urology consulted, recommended outpatient follow-up -Hemoglobin stable 7 mm right mid lung pulmonary nodule -Outpatient repeat surveillance CT Acute encephalopathy, resolved -Ativan 0.5 mg IV as needed, monitor for sedation -Pain control with morphine 4 mg IV as needed, monitor for sedation Nausea and vomiting, resolved -Reglan 5 mg IV every 6 hours as needed Diarrhea, resolved -C. diff negative -Loperamide as needed Hypertension -Coreg 25 mg twice a day Neuropathy - gabapentin 600 3 times a day DVT ppx: eliquis Code status: FC Anticipated discharge place: [facility]acute rehab Anticipated discharge time: Pending bed availability Objective - Vital Signs Vital signs: Vital Signs Temp 97.7 F 10/03/23 08:00 Pulse 72 10/03/23 11:51 Resp 16 10/03/23 11:51 BP 99/58 10/03/23 11:51 Pulse Ox 97 10/03/23 11:51 FiO2 40 09/25/23 11:29 Intake & Output 10/02/23 10/03/23 10/03/23 18:59 06:59 18:59 Intake Total 358 420 Output Total 700 1000 Balance -342 -580 Weight 107.5 kg Intake: Oral 358 420 Output: Urine 700 1000 Other: Voiding Method Indwelling Catheter Indwelling Catheter Indwelling Catheter # Bowel Movements 1 - Labs CBC & Chem 7: 09/29/23 08:22 10/03/23 06:48 Labs: Abnormal Lab Results - Last 24 Hours (Table) 10/03/23 Range/Units 06:48 Potassium 3.2 L (3.5-5.1) mmol/L Carbon Dioxide 36 H (22-30) mmol/L BUN 27 H (7-17) mg/dL Calcium 8.1 L (8.4-10.2) mg/dL
[2023-10-04] MEDS: carvediloL 12.5 MG TAB PO SCH (06:27)
[2023-10-04] MEDS: PANTOPRAZOLE 40 MG TABLET PO SCH (06:27)
[2023-10-04] MEDS: IPRATROPIUM-ALBUTEROL 3 ML NEB INHALATION SCH ×3 (07:50→15:07)
[2023-10-04] MEDS: Apixaban Initiation Dose--VTE 5 MG TAB PO SCH (08:48)
[2023-10-04] MEDS: BUMETANIDE 1 MG TAB PO SCH (08:48)
[2023-10-04] MEDS: GABAPENTIN 300 MG CAP PO SCH ×2 (08:49→15:24)
[2023-10-04 09:50] LABS: African American GFR (CKD) 84 (>60 ml/min/1.73 sqM); Anion Gap 1 mmol/L; Blood Urea Nitrogen 25 mg/dL (7-17); Calcium 8.7 mg/dL (8.4-10.2); Carbon Dioxide 39 mmol/L (22-30); Chloride 99 mmol/L (98-107); Glucose 102 mg/dL (74-99); Magnesium 1.8 mg/dL (1.6-2.3); Non-African American GFR(CKD) 73 (>60 ml/min/1.73 sqM); Potassium 3.6 mmol/L (3.5-5.1); Sodium 139 mmol/L (137-145)
--- NOTE | 2023-10-04 11:25 | P.DS ---
Providers Date of admission: 09/25/23 02:37 Expected date of discharge: 10/04/23 Attending physician: Jeovany Rivera MD Consults: 09/26/23 08:45 Consult Physician Routine Consulting Provider: Mackenzie Moore Consult Reason/Comments: PE Do you want consulting provider notified?: Yes 09/28/23 08:21 Consult Physician Routine Consulting Provider: Tim Mckoy Consult Reason/Comments: Hematuria on eliquis Do you want consulting provider notified?: Yes Primary care physician: Stated None Hospital Course: Discharge Diagnosis: Acute hypoxic respiratory failure, improved Acute right lower lobe non-massive pulmonary embolism Acute on chronic heart failure exacerbation, current EF 45-50%, improved NSTEMI, likely type 2 Hypokalemia Acute urinary retention Acute hematuria 7 mm right mid lung pulmonary nodule Acute encephalopathy Nausea and vomiting, Diarrhea Hypertension Peripheral Neuropathy Hospital Course: 83-year-old female with history of systolic CHF, hypertension presenting with shortness of breath. On initial presentation, patient was hypoxic requiring BiPAP, hypertensive, and tachycardic. WBC up to 12.3, troponin elevated to 0.074. Respiratory viral panel negative. Right bundle branch block, frequent PACs. Chest x-ray showed evidence of congestive heart failure. Small pleural effusions bilaterally. Chest CTA pulmonary embolism and segmental and subsegmental branch of right basilar lower lobe., 7 mm right mid lung pulmonary nodule. Lower extremity Dopplers negative for DVTs. Patient was also in new onset atrial fibrillation with RVR. Admitted for acute pulmonary embolism, A. fib RVR, acute CHF exacerbation. Cardiology was consulted. She was started on IV heparin drip, and IV Lasix. Heparin drip discontinued, started on Eliquis. Also on oral diuretics now. Pulmonology also consulted. Respiratory function better, patient on 3 L. was having diarrhea, now improving. Also had urinary retention, status post Buckner catheter placement. Which led to hematuria. Urology was consulted. Hematuria has resolved. Getting a voiding trial. Patient being discharged to nursing facility. Patient seen and examined at bedside. Vital signs reviewed and stable. General: nontoxic, no distress, appears at stated age Derm: warm, dry Head: atraumatic, normocephalic, symmetric Eyes: EOMI, no lid lag, anicteric sclera Mouth: no lip lesion, mucus membranes moist Cardiovascular: S1S2 reg, no murmur Lungs: CTA bilateral, no rhonchi, no rales , no accessory muscle use, supplemental oxygen Abdominal: soft, nontender to palpation, no guarding, no appreciable organomegaly Ext: no gross muscle atrophy, 2+ pitting edema, no contractures Neuro: CN II-XI grossly intact, no focal neuro deficits Psych: Alert, oriented, appropriate affect A total of 33 minutes of time were spent preparing this complex discharge summary. Patient was discharged on 10/04/23 at 1048. Patient Condition at Discharge: Stable Plan - Discharge Summary Discharge Rx Participant: No New Discharge Prescriptions: New Apixaban Initiation Dose--VTE [Eliquis Initiation Dosing for VTE Treatment] 5 mg PO BID #0 tab Loperamide [Imodium] 2 mg PO QID PRN cap PRN Reason: Diarrhea Pantoprazole [Protonix] 40 mg PO AC-BRKFST tab Acetaminophen Tab [Tylenol] 650 mg PO Q6HR PRN tab PRN Reason: Mild Pain Or Fever > 100.5 Continue Gabapentin 600 mg PO TID carvediloL [Coreg] 25 mg PO BID Vitamin D(Unknown Dose) 1 tab PO DAILY Potassium Chloride ER [K-Dur 10] 10 meq PO BID Bumetanide [BUMEX] 1 mg PO DAILY Fish Oil(Unknown Dose) 1 cap PO DAILY Discontinued metOLazone [Zaroxolyn] 2.5 mg PO MOWEFR Acetaminophen Tab [Tylenol Tab] 1,000 mg PO TID lisinopriL [Prinivil] 5 mg PO DAILY PRN PRN Reason: BP >145/90 Discharge Medication List Bumetanide [BUMEX] 1 mg PO DAILY 09/25/23 [History] Fish Oil(Unknown Dose) 1 cap PO DAILY 09/25/23 [History] Gabapentin 600 mg PO TID 09/25/23 [History] Potassium Chloride ER [K-Dur 10] 10 meq PO BID 09/25/23 [History] Vitamin D(Unknown Dose) 1 tab PO DAILY 09/25/23 [History] carvediloL [Coreg] 25 mg PO BID 09/25/23 [History] Acetaminophen Tab [Tylenol] 650 mg PO Q6HR PRN tab 10/04/23 [Rx] Apixaban Initiation Dose--VTE [Eliquis Initiation Dosing for VTE Treatment] 5 mg PO BID #0 tab 10/04/23 [Rx] Loperamide [Imodium] 2 mg PO QID PRN cap 10/04/23 [Rx] Pantoprazole [Protonix] 40 mg PO AC-BRKFST tab 10/04/23 [Rx] Follow up Appointment(s)/Referral(s): Mackenzie Moore MD [STAFF PHYSICIAN] - 1 Week Armando Samuels MD [STAFF PHYSICIAN] - 2 Weeks None,Stated [Primary Care Provider] - 1-2 days Patient Instructions/Handouts: Heart Failure (DC), Pulmonary Embolism (DC), Hematuria (GEN) Activity/Diet/Wound Care/Special Instructions: Please see your PCP, pulmonology and cardiology. Discharge Disposition: TRANSFER TO SNF/ECF
--- NOTE | 2023-10-04 12:23 | P.PN ---
Subjective Progress Note Date: 10/04/23 On 10/03/2023, the patient is being seen for a follow-up. Patient hospitalized for shortness of breath and mental status change. She is an 83-year-old female patient with known history of mild CHF hypertension and chronic lower extremity edema and the patient also has previous history of smoking. The patient was experiencing shortness of breath. The patient was found to be in A-fib RVR at the time of the nurse department visit and the patient was initially supported by BiPAP. CT angiogram showed segmental and subsegmental emboli in the lungs with involvement of the right basilar lower lobe. No evidence of any RV strain. Patient was started on IV heparin. Pro BNP was elevated and the patient was found to have a level of 5540 and the patient was started on diuretics Lasix 40 mg twice a day and Zaroxolyn. Troponins were minimally elevated with the highest level being at 0.07. The patient was on oxygen at 4 L/min nasal cannula. Echocardiogram was done and the patient was found to have an ejection fraction of 40 to 45%. Mild pulmonary hypertension as noted without any significant RV failure. The patient was subsequently weaned down to 2 L of oxygen by nasal cannula. Diuretic therapy in form of Bumex 1 mg p.o. daily. Zaroxolyn has been discontinued. The patient is also on Coreg for rate control. Overall, the patient is doing much better. She remains a chest fibrillation. Rate is controlled. Oxygen levels are also stable. The patient has been weaned off oxygen and currently she is on 2 L nasal cannula. On today's evaluation of 10/04/2022, patient is being seen for a follow-up. The patient is doing well. No specific complaints. She is currently on Bumex 1 mg by mouth on a daily basis. No chest pain. No cough or sputum production. Echocardiogram showed an ejection fraction of 40-45% with moderate pulmonary hypertension. Oxygenation is further improved and the patient is currently on room air oxygen with a pulse ox of 95%. Lower extremity edema is also improving. For now, the patient is on anticoagulation also with Eliquis regarding her pulmonary embolism. No pleurisy. No hemoptysis. No chest pain. Objective - Vital Signs Vital signs: Vital Signs Temp 98.1 F 10/04/23 08:00 Pulse 80 10/04/23 08:00 Resp 18 10/04/23 08:00 BP 96/46 10/04/23 08:00 Pulse Ox 93 L 10/04/23 08:00 FiO2 40 09/25/23 11:29 Intake & Output 10/03/23 10/04/23 10/04/23 18:59 06:59 18:59 Intake Total 1020 540 462 Output Total 1475 200 175 Balance -455 340 287 Weight 108.5 kg Intake: Oral 1020 540 462 Output: Urine 1475 200 175 Other: Voiding Method Indwelling Catheter Indwelling Catheter # Bowel Movements 1 - Exam No acute distress, oriented 3. Currently, the patient's on room air oxygen HEENT examination is grossly unremarkable. Mucous membranes are moist. No oral lesions. Neck supple. Full range of motion. No adenopathy thyromegaly or neck vein distention. Cardiovascular examination reveals irregular rhythm rate. S1-S2 normal. No S3 or S4. No discernible murmur noted. Lungs reveal mild crackles at the bases. No wheezes. No rhonchi. Breath sounds are equal bilaterally. Abdomen soft bowel sounds are heard. No masses or tenderness. Extremities are intact. No cyanosis clubbing or edema. Skin is without rash or lesion. Neurologic examination is brief but nonfocal. - Labs CBC & Chem 7: 09/29/23 08:22 10/04/23 08:45 Labs: Abnormal Lab Results - Last 24 Hours (Table) 10/04/23 Range/Units 08:45 Carbon Dioxide 39 H (22-30) mmol/L BUN 25 H (7-17) mg/dL Glucose 102 H (74-99) mg/dL Assessment and Plan Plan: Assessment Acute shortness of breath with evidence of segmental and subsegmental pulmonary emboli involving the right lower lobe. No significant pulm hypertension or RV strain. No evidence of any RV failure at this point in time. In terms of anticoagulation, the patient was switched to Eliquis per protocol 10 mg twice a day. This will be continued and the patient will be switched to 5 mg twice a day after completing one-week course of anticoagulation at a dose of 10 mg. Acute hypoxic respiratory failure, currently on room air oxygen CHF with mild impairment of LV function with an EF of around 45%, proBNP level is elevated and the patient had small bilateral pleural effusion right more than left A-fib RVR, recovered and the patient is on Coreg and anticoagulation with Eliquis Hypertension Troponin leak secondary to above Obesity BMI of 39.3 Incidental 7 mm pulmonary nodule in the right lung, nonspecific findings that needs to be followed up Plan Continue anticoagulation, the patient is currently on Eliquis, no complications related to anticoagulation Continue diuretics, currently on Bumex 1 mg by mouth daily Improvement in lower extremity edema Patient remains a chest fibrillation, controlled rate Overall she's feeling better Wean down FiO2 to room air oxygen. Possible discharge home today.
[2023-10-04 15:46] VITALS: BP 110/70; PULSE 92; RESP 18; TEMP 97.8
== END 2023-10-04 16:11 | DRG 280 ==
LOC: EC 00:46 → 3SCARD 02:37
PROVIDERS: ADMIT Internal Medicine; ATTEND Internal Medicine
PROC: 5A09357 Assistance with Respiratory Ventilation, Less than 24 Consecutive Hours, Continuous Positive Airway Pressure (ICD-10-PCS; principal; 2023-09-25)
DX: I11.0 Hypertensive heart disease with heart failure (principal); G93.41 Metabolic encephalopathy; I21.A1 Myocardial infarction type 2; I26.93 Single subsegmental thrombotic pulmonary embolism without acute cor pulmonale; I50.23 Acute on chronic systolic (congestive) heart failure; J96.01 Acute respiratory failure with hypoxia; I16.1 Hypertensive emergency; R45.1 Restlessness and agitation; Z87.891 Personal history of nicotine dependence; T45.515A Adverse effect of anticoagulants, initial encounter; E66.9 Obesity, unspecified; I27.20 Pulmonary hypertension, unspecified; Z68.39 Body mass index [BMI] 39.0-39.9, adult; Z71.3 Dietary counseling and surveillance; Z11.52 Encounter for screening for COVID-19; Z66 Do not resuscitate; F41.9 Anxiety disorder, unspecified; D53.9 Nutritional anemia, unspecified; E87.6 Hypokalemia; G62.9 Polyneuropathy, unspecified; I45.10 Unspecified right bundle-branch block; I49.1 Atrial premature depolarization; I48.91 Unspecified atrial fibrillation; I87.8 Other specified disorders of veins; R31.0 Gross hematuria; Z79.01 Long term (current) use of anticoagulants; Z79.899 Other long term (current) drug therapy
CPT/HCPCS: 36415; 51798; 70450; 71045; 71275; 80048; 80053; 82607; 82746; 83605; 83735; 83880; 84100; 84145; 84443; 84484; 85025; 85027; 85379; 85610; 85730; 87324; 87636; 93005; 93306; 93970; 94640; 94660; 94760; 96361; 96365; 96366; 96375; 96376; 99291

== ENCOUNTER 2023-10-28 16:25 | Emergency (ER) | payer MEDICARE ==
[2023-10-28 16:34] VITALS: TEMP 98.2
--- NOTE | 2023-10-28 16:53 | ED ---
General Adult HPI - General Chief complaint: Urogenital Stated complaint: Unable to Urinate Time Seen by Provider: 10/28/23 16:48 Source: patient, RN notes reviewed Mode of arrival: ambulatory Limitations: no limitations - History of Present Illness Initial comments: 83-year-old female presents to the emergency department for evaluation of difficulty urinating. Patient states that around 10 AM she went to change her brief which was dry. Patient had her home nurse visit today for the first time. She states that the nurse reported that her abdomen was distended near her bladder. She currently has no complaints. She reports occasional incontinence which is normal for her. She does report that she has recently had an increase in her Lasix. States she is hydrating well. - Related Data Home Medications Medication Instructions Recorded Confirmed Bumetanide [BUMEX] 1 mg PO DAILY 09/25/23 09/25/23 Fish Oil(Unknown Dose) 1 cap PO DAILY 09/25/23 09/25/23 Potassium Chloride ER [K-Dur 10] 10 meq PO BID 09/25/23 09/25/23 Vitamin D(Unknown Dose) 1 tab PO DAILY 09/25/23 09/25/23 carvediloL [Coreg] 25 mg PO BID 09/25/23 09/25/23 Previous Rx's Medication Instructions Recorded Acetaminophen Tab [Tylenol] 650 mg PO Q6HR PRN tab 10/04/23 Apixaban Initiation Dose--VTE 5 mg PO BID #0 tab 10/04/23 [Eliquis Initiation Dosing for VTE Treatment] Gabapentin [Neurontin] 600 mg PO TID #7 cap 10/04/23 Loperamide [Imodium] 2 mg PO QID PRN cap 10/04/23 Pantoprazole [Protonix] 40 mg PO AC-BRKFST tab 10/04/23 Cephalexin [Keflex] 500 mg PO BID #20 cap 10/28/23 Allergies Allergy/AdvReac Type Severity Reaction Status Date / Time duloxetine [From Cymbalta] AdvReac Hallucinati Verified 10/28/23 16:30 ons Review of Systems ROS Statement: Those systems with pertinent positive or pertinent negative responses have been documented in the HPI. ROS Other: All systems not noted in ROS Statement are negative. Past Medical History Past Medical History: Atrial Fibrillation, Heart Failure, Hypertension, Myocardial Infarction ([place]) Additional Past Medical History / Comment(s): PE. History of Any Multi-Drug Resistant Organisms: None Reported Past Surgical History: No Surgical Hx Reported Past Anesthesia/Blood Transfusion Reactions: No Reported Reaction Past Psychological History: Anxiety, Depression Smoking Status: Former smoker Past Alcohol Use History: None Reported Past Drug Use History: None Reported General Exam Limitations: no limitations General appearance: alert, in no apparent distress Head exam: Present: atraumatic, normocephalic, normal inspection Eye exam: Present: normal appearance, PERRL, EOMI. Absent: scleral icterus, conjunctival injection, periorbital swelling ENT exam: Present: normal exam, mucous membranes moist Neck exam: Present: normal inspection. Absent: tenderness, meningismus, lymphadenopathy Respiratory exam: Present: normal lung sounds bilaterally. Absent: respiratory distress, wheezes, rales, rhonchi, stridor Cardiovascular Exam: Present: regular rate, normal rhythm, normal heart sounds. Absent: systolic murmur, diastolic murmur, rubs, gallop, clicks GI/Abdominal exam: Present: soft, normal bowel sounds. Absent: distended, tenderness, guarding, rebound, rigid Extremities exam: Present: normal inspection, full ROM, normal capillary refill. Absent: tenderness, pedal edema, joint swelling, calf tenderness Back exam: Present: normal inspection Neurological exam: Present: alert, oriented X3 Psychiatric exam: Present: normal affect, normal mood Skin exam: Present: warm, dry, intact, normal color. Absent: rash Course Vital Signs 10/28/23 10/28/23 16:27 20:31 Temperature 98.2 F Pulse Rate 77 74 Respiratory 20 18 Rate Blood Pressure 123/69 128/79 O2 Sat by Pulse 97 97 Oximetry Medical Decision Making - Medical Decision Making Was pt. sent in by a medical professional or institution (, PA, SR. CONSULTANT, urgent care, hospital, or detention...) When possible be specific @ -No Did you speak to anyone other than the patient for history (EMS, parent, family, police, friend...)? What history was obtained from this source @ -Patient's daughter provided to the history of this patient at Did you review nursing and triage notes (agree or disagree)? Why? @ -I reviewed and agree with nursing and triage notes Were old charts reviewed (outside hosp., previous admission, EMS record, old EKG, old radiological studies, urgent care reports/EKG's, detention records)? Report findings @ -No old charts were reviewed Differential Diagnosis (chest pain, altered mental status, abdominal pain women, abdominal pain men, vaginal bleeding, weakness, fever, dyspnea, syncope, he adache, dizziness, GI bleed, back pain, seizure, CVA, palpatations, mental health, musculoskeletal)? @ -UTI, urinary retention, dehydration, this list is not all inclusive EKG interpreted by me (3pts min.). @ -EKG at 1724 shows A-fib rate 76, QRS 106, QTQTc [id number] X-rays interpreted by me (1pt min.). @ -Chest x-ray shows no acute infiltrate CT interpreted by me (1pt min.). @ -None done U/S interpreted by me (1pt. min.). @ -None done What testing was considered but not performed or refused? (CT, X-rays, U/S, labs)? Why? @ -None What meds were considered but not given or refused? Why? @ -None Did you discuss the management of the patient with other professionals (professionals i.e. , PA, SR. CONSULTANT, lab, RT, psych nurse, social economist, criminal defense lawyer, teacher, radiation safety officer, case management assistant)? Give summary @ -No Was smoking cessation discussed for >3mins.? @ -No Was critical care preformed (if so, how long)? @ -No Were there social determinants of health that impacted care today? How? (Home lessness, low income, unemployed, alcoholism, drug addiction, transportation, low edu. Level, literacy, decrease access to med. care, senior living, rehab)? @ -No Was there de-escalation of care discussed even if they declined (Discuss DNR or withdrawal of care, Hospice)? DNR status @ -No What co-morbidities impacted this encounter? (DM, HTN, Smoking, COPD, CAD, Cancer, CVA, ARF, Chemo, Hep., AIDS, mental health diagnosis, sleep apnea, morbid obesity)? @ -None Was patient admitted / discharged? Hospital course, mention meds given and route, prescriptions, significant lab abnormalities, going to OR and other pertinent info. @ -Discharge. Patient presented to the emergency department for evaluation of difficulty urinating. This started today. Bladder scan was obtained which showed 391 cc of urine. A Buckner catheter was placed. Laboratory studies obtained.CBC shows WBC of 7.8, hemoglobin 12.8; normal coagulation studies; creatinine slightly increased at 1.7; patient hydrated with 500 cc normal saline advised to increase water intake and have this rechecked. UA shows positive nitrite, small leukocyte esterase. Patient will be treated for a urinary tract infection. Patient will be discharged with Buckner catheter and advised to follow-up with urology. Patient and family understanding agreeable with plan. Patient stable at time of discharge. Case discussed with Dr. Ernandez Undiagnosed new problem with uncertain prognosis? @ -No Drug Therapy requiring intensive monitoring for toxicity (Heparin, Nitro, Insulin, Cardizem)? @ -No Were any procedures done? @ -No Diagnosis/symptom? @ -UTI Acute, or Chronic, or Acute on Chronic? @ -Acute Uncomplicated (without systemic symptoms) or Complicated (systemic symptoms)? @ -Uncomplicated Side effects of treatment? @ -No Exacerbation, Progression, or Severe Exacerbation? @ -No Poses a threat to life or bodily function? How? (Chest pain, [place], [place], pneumonia, PE, COPD, DKA, ARF, appy, cholecystitis, CVA, Diverticulitis, Homicidal, Suicidal, threat to staff... and all critical care pts) @ -No - Lab Data Result diagrams: 10/28/23 17:22 10/28/23 17:22 Lab Results 10/28/23 10/28/23 10/28/23 Range/Units 17:22 17:22 17:22 WBC 7.8 (3.8-10.6) k/uL RBC 4.23 (3.80-5.40) m/uL Hgb 12.8 (11.4-16.0) gm/dL Hct 40.1 (34.0-46.0) % MCV 94.9 (80.0-100.0) fL MCH 30.2 (25.0-35.0) pg MCHC 31.8 (31.0-37.0) g/dL RDW 13.4 (11.5-15.5) % Plt Count 232 (150-450) k/uL MPV 8.3 Neutrophils % 69 % Lymphocytes % 18 % Monocytes % 6 % Eosinophils % 4 % Basophils % 1 % Neutrophils # 5.4 (1.3-7.7) k/uL Lymphocytes # 1.4 (1.0-4.8) k/uL Monocytes # 0.5 (0-1.0) k/uL Eosinophils # 0.3 (0-0.7) k/uL Basophils # 0.1 (0-0.2) k/uL PT 10.6 (10.0-12.5) sec INR 1.0 (<1.2) APTT 25.8 (22.0-30.0) sec Sodium 137 (137-145) mmol/L Potassium 3.4 L (3.5-5.1) mmol/L Chloride 99 (98-107) mmol/L Carbon Dioxide 32 H (22-30) mmol/L Anion Gap 6 mmol/L BUN 66 H (7-17) mg/dL Creatinine 1.70 H (0.52-1.04) mg/dL Est GFR (CKD-EPI)AfAm 32 (>60 ml/min/1.73 sqM) Est GFR (CKD-EPI)NonAf 28 (>60 ml/min/1.73 sqM) Glucose 124 H (74-99) mg/dL Plasma Lactic Acid Adrian (0.7-2.0) mmol/L Calcium 9.2 (8.4-10.2) mg/dL Total Bilirubin 0.5 (0.2-1.3) mg/dL AST 23 (14-36) U/L ALT 17 (4-34) U/L Alkaline Phosphatase 48 (38-126) U/L Total Protein 6.9 (6.3-8.2) g/dL Albumin 3.8 (3.5-5.0) g/dL Urine Color Urine Appearance (Clear) Urine pH (5.0-8.0) Ur Specific [place] (1.001-1.035) Urine Protein (Negative) Urine Glucose (UA) (Negative) Urine Ketones (Negative) Urine Blood (Negative) Urine Nitrite (Negative) Urine Bilirubin (Negative) Urine Urobilinogen (<2.0) mg/dL Ur Leukocyte Esterase (Negative) Urine RBC (0-5) /hpf Urine WBC (0-5) /hpf Urine Bacteria (None) /hpf Urine Mucus (None) /hpf 10/28/23 10/28/23 Range/Units 17:22 17:22 WBC (3.8-10.6) k/uL RBC (3.80-5.40) m/uL Hgb (11.4-16.0) gm/dL Hct (34.0-46.0) % MCV (80.0-100.0) fL MCH (25.0-35.0) pg MCHC (31.0-37.0) g/dL RDW (11.5-15.5) % Plt Count (150-450) k/uL MPV Neutrophils % % Lymphocytes % % Monocytes % % Eosinophils % % Basophils % % Neutrophils # (1.3-7.7) k/uL Lymphocytes # (1.0-4.8) k/uL Monocytes # (0-1.0) k/uL Eosinophils # (0-0.7) k/uL Basophils # (0-0.2) k/uL PT (10.0-12.5) sec INR (<1.2) APTT (22.0-30.0) sec Sodium (137-145) mmol/L Potassium (3.5-5.1) mmol/L Chloride (98-107) mmol/L Carbon Dioxide (22-30) mmol/L Anion Gap mmol/L BUN (7-17) mg/dL Creatinine (0.52-1.04) mg/dL Est GFR (CKD-EPI)AfAm (>60 ml/min/1.73 sqM) Est GFR (CKD-EPI)NonAf (>60 ml/min/1.73 sqM) Glucose (74-99) mg/dL Plasma Lactic Acid Adrian 1.1 (0.7-2.0) mmol/L Calcium (8.4-10.2) mg/dL Total Bilirubin (0.2-1.3) mg/dL AST (14-36) U/L ALT (4-34) U/L Alkaline Phosphatase (38-126) U/L Total Protein (6.3-8.2) g/dL Albumin (3.5-5.0) g/dL Urine Color Colorless Urine Appearance Clear (Clear) Urine pH 5.0 (5.0-8.0) Ur Specific [place] 1.012 (1.001-1.035) Urine Protein Negative (Negative) Urine Glucose (UA) Negative (Negative) Urine Ketones Negative (Negative) Urine Blood Negative (Negative) Urine Nitrite Positive H (Negative) Urine Bilirubin Negative (Negative) Urine Urobilinogen <2.0 (<2.0) mg/dL Ur Leukocyte Esterase Small H (Negative) Urine RBC 1 (0-5) /hpf Urine WBC 15 H (0-5) /hpf Urine Bacteria Few H (None) /hpf Urine Mucus Rare H (None) /hpf Disposition Clinical Impression: Urinary tract infection, Buckner catheter in place Disposition: HOME SELF-CARE Condition: Stable Instructions (If sedation given, give patient instructions): Urinary Tract Infection in Women (ED) Additional Instructions: Please follow up with your primary care provider and urology. Return to the emergency department for new or worsening symptoms. Prescriptions: Cephalexin [Keflex] 500 mg PO BID #20 cap Is patient prescribed a controlled substance at d/c from ED?: No Referrals: Nonstaff,Physician [Primary Care Provider] - 1-2 days Kan Hendricks MD [STAFF PHYSICIAN] - 1-2 days
[2023-10-28 17:51] LABS: Basophils # (A) 0.1 k/uL (0-0.2); Basophils % (A) 1 %; Eosinophils # (A) 0.3 k/uL (0-0.7); Eosinophils % (A) 4 %; HCT 40.1 % (34.0-46.0); HGB 12.8 gm/dL (11.4-16.0); Lymphocytes # (A) 1.4 k/uL (1.0-4.8); Lymphocytes % (A) 18 %; MCH 30.2 pg (25.0-35.0); MCHC 31.8 g/dL (31.0-37.0); MCV 94.9 fL (80.0-100.0); Mean Platelet Volume 8.3; Monocytes # (A) 0.5 k/uL (0-1.0); Monocytes % (A) 6 %; Neutrophils # (A) 5.4 k/uL (1.3-7.7); Neutrophils % (A) 69 %; Platelet Count 232 k/uL (150-450); RBC 4.23 m/uL (3.80-5.40); RDW 13.4 % (11.5-15.5); WBC 7.8 k/uL (3.8-10.6)
[2023-10-28 18:02] LABS: ALT 17 U/L (4-34); AST 23 U/L (14-36); African American GFR (CKD) 32 (>60 ml/min/1.73 sqM); Albumin 3.8 g/dL (3.5-5.0); Alkaline Phosphatase 48 U/L (38-126); Anion Gap 6 mmol/L; Blood Urea Nitrogen 66 mg/dL (7-17); Calcium 9.2 mg/dL (8.4-10.2); Carbon Dioxide 32 mmol/L (22-30); Chloride 99 mmol/L (98-107); Glucose 124 mg/dL (74-99); Non-African American GFR(CKD) 28 (>60 ml/min/1.73 sqM); Potassium 3.4 mmol/L (3.5-5.1); Sodium 137 mmol/L (137-145); Total Bilirubin 0.5 mg/dL (0.2-1.3); Total Protein 6.9 g/dL (6.3-8.2)
--- NOTE | 2023-10-28 18:02 | XR ---
EXAMINATION TYPE: XR chest 2V DATE OF EXAM: 10/28/2023 COMPARISON: Chest x-ray September 25, 2023 HISTORY: Difficulty in breathing. TECHNIQUE: Frontal and lateral views of the chest are obtained. FINDINGS: Eventration of the anterior aspect right hemidiaphragm is redemonstrated. There is no suspi cious new focal air space opacity, pleural effusion, or pneumothorax seen. Cardiomegaly is again seen . The osseous structures are intact. IMPRESSION: Cardiomegaly without acute pulmonary process. Improving central vascular congestion note d from prior.
[2023-10-28 18:05] LABS: Appearance,Urine Clear (Clear); Bacteria,Urine Few /hpf; Bilirubin,Urine Negative (Negative); Blood,Urine Negative (Negative); Color,Urine Colorless; Glucose,Urine (UA) Negative (Negative); Ketones,Urine Negative (Negative); Leukocyte Esterase,Urine Small (Negative); Mucus,Urine Rare /hpf; Nitrite,Urine Positive (Negative); Protein,Urine Negative (Negative); RBC,Urine 1 /hpf (0-5); Specific Gravity,Urine 1.012 (1.001-1.035); Urobilinogen,Urine <2.0 mg/dL (<2.0); WBC,Urine 15 /hpf (0-5)
[2023-10-28 18:16] LABS: Partial Thromboplastin Time 25.8 sec (22.0-30.0); Prothrombin Time 10.6 sec (10.0-12.5)
[2023-10-28] MEDS: SODIUM CHLORIDE 0.9% 500 ML 500 ML IV ONE (19:11)
[2023-10-28 20:34] VITALS: BP 128/79; PULSE 74; RESP 18
[2023-10-28] MEDS: CEPHALEXIN 500 MG CAP PO STA (20:34)
== END 2023-10-28 20:43 | disposition home or self-care (01) ==
LOC: EC 16:25
DX: N39.0 Urinary tract infection, site not specified (principal); B96.1 Klebsiella pneumoniae [K. pneumoniae] as the cause of diseases classified elsewhere; I48.91 Unspecified atrial fibrillation; I11.0 Hypertensive heart disease with heart failure; I50.9 Heart failure, unspecified; I25.2 Old myocardial infarction; Z79.899 Other long term (current) drug therapy; Z88.8 Allergy status to other drugs, medicaments and biological substances; Z87.891 Personal history of nicotine dependence
CPT/HCPCS: 36415; 51702; 71046; 80053; 81001; 83605; 85025; 85610; 85730; 87077; 87086; 87186; 93005; 96360; 99284

== ENCOUNTER 2025-03-07 10:43 | Emergency (ER) | payer MEDICARE ==
--- NOTE | 2025-03-07 11:13 | ED ---
Weakness HPI - General Chief complaint: Weakness Stated complaint: Vomiting, Shaking Time Seen by Provider: 03/07/25 10:58 Source: patient, family, RN notes reviewed Mode of arrival: ambulatory Limitations: no limitations - History of Present Illness Initial comments: This is an 85-year-old female with history including AMI, heart failure, A-fib, PE and hypertension presenting with niece for weakness x 3 days. He states patient has had a low-grade fever without vomiting of phlegm, fatigue, tremors/chills, cough and general "fog", stating patient is not behaving normally. Niece also notes patient has been short of breath and does not use O2 at her SNF. Endorses use of wheelchair for mobility. Niece states patient has similar symptoms prior to her pulmonary embolism diagnosis. [facility] patient has not taken her home meds this morning. [facility] patient is scheduled for an upcoming renal ultrasound through her stereotyper apprentice. Patient denies dizziness, chest pain, abdominal pain, diarrhea, dysuria, mid back pain. MD Complaint: generalized weakness, lack of energy Onset/Timin -: days(s) Location: generalized Associated Symptoms: nausea/vomiting, shortness of breath - Related Data Home Medications Medication Instructions Recorded Confirmed Bumetanide [BUMEX] 1 mg PO MOTH 09/25/23 03/07/25 Potassium Chloride ER [K-Dur 10] 10 meq PO BID 09/25/23 03/07/25 carvediloL [Coreg] 25 mg PO BID 09/25/23 03/07/25 ALPRAZolam [Xanax XR] 0.5 mg PO MOWEFR 03/07/25 03/07/25 Acetaminophen Tab [Tylenol] 975 mg PO TID 03/07/25 03/07/25 Apixaban [Eliquis] 5 mg PO BID 03/07/25 03/07/25 Cholecalciferol [Vitamin D3 (125 125 mcg PO DAILY 03/07/25 03/07/25 Mcg = 5000 Iu)] Gabapentin [Neurontin] 800 mg PO TID 03/07/25 03/07/25 busPIRone HCL [Buspar] 30 mg PO BID 03/07/25 03/07/25 metOLazone [Zaroxolyn] 2.5 mg PO DAILY 03/07/25 03/07/25 Allergies Allergy/AdvReac Type Severity Reaction Status Date / Time duloxetine [From Cymbalta] AdvReac Hallucinati Verified 03/07/25 11:19 ons Review of Systems ROS Statement: Those systems with pertinent positive or pertinent negative responses have been documented in the HPI. ROS Other: All systems not noted in ROS Statement are negative. Past Medical History Past Medical History: Atrial Fibrillation, Heart Failure, Hypertension, Myocardial Infarction (CO) Additional Past Medical History / Comment(s): PE. History of Any Multi-Drug Resistant Organisms: None Reported Past Surgical History: No Surgical Hx Reported Past Anesthesia/Blood Transfusion Reactions: No Reported Reaction Past Psychological History: Anxiety, Depression Smoking Status: Former smoker Past Alcohol Use History: None Reported Past Drug Use History: None Reported General Exam Limitations: no limitations General appearance: alert, in no apparent distress, lethargic, obese Head exam: Present: atraumatic, normocephalic, normal inspection Eye exam: Present: normal appearance, PERRL, EOMI. Absent: scleral icterus, conjunctival injection, periorbital swelling ENT exam: Present: mucous membranes dry Neck exam: Present: normal inspection. Absent: tenderness, meningismus, lymphadenopathy Respiratory exam: Present: decreased breath sounds (Decreased lung sounds auscultated in bilateral lower lobes). Absent: respiratory distress, wheezes, rales, rhonchi, stridor, accessory muscle use, prolonged expiratory Cardiovascular Exam: Present: regular rate, normal rhythm, normal heart sounds. Absent: systolic murmur, diastolic murmur, rubs, gallop, clicks GI/Abdominal exam: Present: soft, diminished bowel sounds, hypoactive bowel sounds. Absent: distended, tenderness, guarding, rebound, rigid Extremities exam: Present: full ROM, normal capillary refill, pedal edema (Positive BLE pitting edema with stasis dermatitis). Absent: tenderness, joint swelling, calf tenderness Back exam: Present: normal inspection. Absent: CVA tenderness (R), CVA tenderness (L) Neurological exam: Present: alert, oriented X3, CN II-XII intact Psychiatric exam: Present: normal affect, normal mood Skin exam: Present: warm, dry, intact, normal color. Absent: rash Course Vital Signs 03/07/25 03/07/25 03/07/25 10:47 12:23 13:00 Temperature 99.4 F 99.3 F Pulse Rate 112 H 87 80 Respiratory 22 20 19 Rate Blood Pressure 130/74 85/49 86/61 O2 Sat by Pulse 87 L 97 97 Oximetry Medical Decision Making - Medical Decision Making Was pt. sent in by a medical professional or institution (JASE Patel, CHIEF CONTROLLER, urgent care, hospital, or retirement...) When possible be specific @ -SNF Did you speak to anyone other than the patient for history (EMS, parent, family, police, friend...)? What history was obtained from this source @ -Niece provided entirety of HPI Did you review nursing and triage notes (agree or disagree)? Why? @ -I reviewed and agree with nursing and triage notes Were old charts reviewed (outside hosp., previous admission, EMS record, old EKG, old radiological studies, urgent care reports/EKG's, retirement records)? Report findings @ -No old charts were reviewed Differential Diagnosis (chest pain, altered mental status, abdominal pain women, abdominal pain men, vaginal bleeding, weakness, fever, dyspnea, syncope, headache, dizziness, GI bleed, back pain, seizure, CVA, palpatations, mental health, musculoskeletal)? @ -Differential Weakness: Hypoglycemia, shock, sepsis, hyponatremia, anemia, infection, CO, ETOH, adverse medicine reaction, overdose, stroke, this is not meant to be an all-inclusive list. EKG interpreted by me (3pts min.). @ -Atrial fibrillation with inferior and anterolateral T wave inversion. No ST deviation. Ventricular rate 95 bpm, QRS 105 ms, QTc 379 ms. X-rays interpreted by me (1pt min.). @ - CXR shows right lateral midlung opacity, also noted in September 2023, and pul monary edema. CT interpreted by me (1pt min.). @ -None done U/S interpreted by me (1pt. min.). @ - Gallbladder ultrasound shows cholelithiasis with dilated CBD, hepatic steatosis and hepatomegaly. What testing was considered but not performed or refused? (CT, X-rays, U/S, labs)? Why? @ -None What meds were considered but not given or refused? Why? @ -None Did you discuss the management of the patient with other professionals (professionals i.e. JASE Patel, CHIEF CONTROLLER, lab, RT, psych nurse, clinical social work therapist, office system analyst, teacher, light armored vehicle officer, continuous pillowcase cutter)? Give summary @ -No Was smoking cessation discussed for >3mins.? @ -No Was critical care preformed (if so, how long)? @ -No Were there social determinants of health that impacted care today? How? (Homelessness, low income, unemployed, alcoholism, drug addiction, transportation, low edu. Level, literacy, decrease access to med. care, group home, rehab)? @ -No Was there de-escalation of care discussed even if they declined (Discuss DNR or withdrawal of care, Hospice)? DNR status @ -No What co-morbidities impacted this encounter? (DM, HTN, Smoking, COPD, CAD, Cancer, CVA, ARF, Chemo, Hep., AIDS, mental health diagnosis, sleep apnea, morbid obesity)? @ -None Was patient admitted / discharged? Hospital course, mention meds given and route, prescriptions, significant lab abnormalities, going to OR and other pertinent info. @ -Patient initially provided IV normal saline, Zofran p.o. Tylenol. Patient initially tachycardic 112 and hypoxic 87% room air. Lab work notable for WBC 13.73 with left shift, MARC with BUN 42 and creatinine 1.29, 0.76 (10/04/2023). Elevated transaminase with total bilirubin 3.3 and alk phos 141. Troponin unremarkable with BNP 3070. D-dimer 1.48, which may be due to inflammatory process, but unable to perform CTA due to MARC. UA positive for UTI after straight cath. Cepheid test negative. CXR shows right lateral midlung opacity, also noted in September 2023, and pulmonary edema. Repeat vital signs show resolution of tachycardia and 97% 2 L NC but drop in blood pressure to 85/49 mmHg. Family notes patient is becoming more alert and lucid following initial treatment. Patient provided IV LR and Rocephin. Gallbladder ultrasound shows cholelithiasis with dilated CBD, hepatic steatosis and hepatomegaly. Patient provided additional dose of IV Rocephin as well as IV Flagyl. Contacted [facility] due to no available writer editor at [facility]. Patient accepted by ER physician Dr. Ochoa without verbal report. Family notified of pending transfer for ongoing care. Discussed patient with Dr. Gentile. Undiagnosed new problem with uncertain prognosis? @ -No Drug Therapy requiring intensive monitoring for toxicity (Heparin, Nitro, Ins ulin, Cardizem)? @ -No Were any procedures done? @ -No Diagnosis/symptom? @ -Urosepsis, MARC, cholelithiasis, pulmonary edema Acute, or Chronic, or Acute on Chronic? @ -Acute Uncomplicated (without systemic symptoms) or Complicated (systemic symptoms)? @ -Complicated Side effects of treatment? @ -No Exacerbation, Progression, or Severe Exacerbation? @ -No Poses a threat to life or bodily function? How? (Chest pain, USA, CO, pneumonia, PE, COPD, DKA, ARF, appy, cholecystitis, CVA, Diverticulitis, Homicidal, Suicidal, threat to staff... and all critical care pts) @ -Sepsis, MARC - Lab Data Result diagrams: 03/07/25 11:39 03/07/25 11:39 Lab Results 03/07/25 03/07/25 03/07/25 Range/Units 11:39 11:39 11:39 WBC 13.73 H (4.50-10.00) 10*3/uL RBC 4.18 (4.10-5.20) 10*6/uL Hgb 13.2 (12.0-15.0) g/dL Hct 39.0 (37.2-46.3) % MCV 93.3 (80.0-97.0) fL MCH 31.6 (27.0-32.0) pg MCHC 33.8 (32.0-37.0) g/dL Plt Count 231 (140-440) 10*3/uL MPV 10.6 (9.5-12.2) fL Immature Gran % (Auto) 0.7 % Neutrophils % 90.4 % Lymphocytes % 3.7 % Monocytes % 4.7 % Eosinophils % 0.1 % Basophils % 0.4 % Immature Gran # 0.10 H (0.00-0.04) 10*3/uL Neutrophils # 12.41 H (1.80-7.70) 10*3/uL Lymphocytes # 0.51 L (0.90-5.00) 10*3/uL Monocytes # 0.64 (0.20-1.00) 10*3/uL Eosinophils # 0.02 L (0.04-0.35) 10*3/uL Basophils # 0.05 (0.00-0.10) 10*3/uL PT 11.4 (10.0-12.5) sec INR 1.0 (<1.2) APTT 24.5 (22.0-30.0) sec D-Dimer 1.48 H (<0.60) mg/L FEU Sodium 138 (137-145) mmol/L Potassium 3.6 (3.5-5.1) mmol/L Chloride 96 L (98-107) mmol/L Carbon Dioxide 31 H (22-30) mmol/L Anion Gap 11 mmol/L BUN 42 H (7-17) mg/dL Creatinine 1.29 H (0.52-1.04) mg/dL Est GFR (CKD-EPI)AfAm 44 (>60 ml/min/1.73 sqM) Est GFR (CKD-EPI)NonAf 38 (>60 ml/min/1.73 sqM) Glucose 131 H (74-99) mg/dL Plasma Lactic Acid Adrian (0.7-2.0) mmol/L Calcium 9.7 (8.4-10.2) mg/dL Phosphorus 3.3 (2.5-4.5) mg/dL Magnesium 1.7 (1.6-2.3) mg/dL Total Bilirubin 3.3 H (0.2-1.3) mg/dL AST 71 H (14-36) U/L ALT 118 H (4-34) U/L Alkaline Phosphatase 141 H (38-126) U/L Troponin I (0.000-0.034) ng/mL NT-Pro-B Natriuret Pep 3070 pg/mL Total Protein 7.1 (6.3-8.2) g/dL Albumin 4.0 (3.5-5.0) g/dL Urine Color Urine Appearance (Clear) Urine pH (5.0-8.0) Ur Specific Victor (1.001-1.035) Urine Protein (Negative) Urine Glucose (UA) (Negative) Urine Ketones (Negative) Urine Blood (Negative) Urine Nitrite (Negative) Urine Bilirubin (Negative) Urine Urobilinogen (<2.0) mg/dL Ur Leukocyte Esterase (Negative) Urine RBC (0-5) /hpf Urine WBC (0-5) /hpf Urine Bacteria (None) /hpf Urine Mucus (None) /hpf Urine Yeast (Budding) (None) /hpf Influenza Type A (PCR) (Not Detectd) Influenza Type B (PCR) (Not Detectd) RSV (PCR) (Not Detectd) SARS-CoV-2 (PCR) (Not Detectd) 03/07/25 03/07/25 03/07/25 Range/Units 11:39 11:39 11:39 WBC (4.50-10.00) 10*3/uL RBC (4.10-5.20) 10*6/uL Hgb (12.0-15.0) g/dL Hct (37.2-46.3) % MCV (80.0-97.0) fL MCH (27.0-32.0) pg MCHC (32.0-37.0) g/dL Plt Count (140-440) 10*3/uL MPV (9.5-12.2) fL Immature Gran % (Auto) % Neutrophils % % Lymphocytes % % Monocytes % % Eosinophils % % Basophils % % Immature Gran # (0.00-0.04) 10*3/uL Neutrophils # (1.80-7.70) 10*3/uL Lymphocytes # (0.90-5.00) 10*3/uL Monocytes # (0.20-1.00) 10*3/uL Eosinophils # (0.04-0.35) 10*3/uL Basophils # (0.00-0.10) 10*3/uL PT (10.0-12.5) sec INR (<1.2) APTT (22.0-30.0) sec D-Dimer (<0.60) mg/L FEU Sodium (137-145) mmol/L Potassium (3.5-5.1) mmol/L Chloride (98-107) mmol/L Carbon Dioxide (22-30) mmol/L Anion Gap mmol/L BUN (7-17) mg/dL Creatinine (0.52-1.04) mg/dL Est GFR (CKD-EPI)AfAm (>60 ml/min/1.73 sqM) Est GFR (CKD-EPI)NonAf (>60 ml/min/1.73 sqM) Glucose (74-99) mg/dL Plasma Lactic Acid Adrian 1.4 (0.7-2.0) mmol/L Calcium (8.4-10.2) mg/dL Phosphorus (2.5-4.5) mg/dL Magnesium (1.6-2.3) mg/dL Total Bilirubin (0.2-1.3) mg/dL AST (14-36) U/L ALT (4-34) U/L Alkaline Phosphatase (38-126) U/L Troponin I <0.012 (0.000-0.034) ng/mL NT-Pro-B Natriuret Pep pg/mL Total Protein (6.3-8.2) g/dL Albumin (3.5-5.0) g/dL Urine Color Urine Appearance (Clear) Urine pH (5.0-8.0) Ur Specific Victor (1.001-1.035) Urine Protein (Negative) Urine Glucose (UA) (Negative) Urine Ketones (Negative) Urine Blood (Negative) Urine Nitrite (Negative) Urine Bilirubin (Negative) Urine Urobilinogen (<2.0) mg/dL Ur Leukocyte Esterase (Negative) Urine RBC (0-5) /hpf Urine WBC (0-5) /hpf Urine Bacteria (None) /hpf Urine Mucus (None) /hpf Urine Yeast (Budding) (None) /hpf Influenza Type A (PCR) Not Detected (Not Detectd) Influenza Type B (PCR) Not Detected (Not Detectd) RSV (PCR) Not Detected (Not Detectd) SARS-CoV-2 (PCR) Not Detected (Not Detectd) 03/07/25 Range/Units 14:20 WBC (4.50-10.00) 10*3/uL RBC (4.10-5.20) 10*6/uL Hgb (12.0-15.0) g/dL Hct (37.2-46.3) % MCV (80.0-97.0) fL MCH (27.0-32.0) pg MCHC (32.0-37.0) g/dL Plt Count (140-440) 10*3/uL MPV (9.5-12.2) fL Immature Gran % (Auto) % Neutrophils % % Lymphocytes % % Monocytes % % Eosinophils % % Basophils % % Immature Gran # (0.00-0.04) 10*3/uL Neutrophils # (1.80-7.70) 10*3/uL Lymphocytes # (0.90-5.00) 10*3/uL Monocytes # (0.20-1.00) 10*3/uL Eosinophils # (0.04-0.35) 10*3/uL Basophils # (0.00-0.10) 10*3/uL PT (10.0-12.5) sec INR (<1.2) APTT (22.0-30.0) sec D-Dimer (<0.60) mg/L FEU Sodium (137-145) mmol/L Potassium (3.5-5.1) mmol/L Chloride (98-107) mmol/L Carbon Dioxide (22-30) mmol/L Anion Gap mmol/L BUN (7-17) mg/dL Creatinine (0.52-1.04) mg/dL Est GFR (CKD-EPI)AfAm (>60 ml/min/1.73 sqM) Est GFR (CKD-EPI)NonAf (>60 ml/min/1.73 sqM) Glucose (74-99) mg/dL Plasma Lactic Acid Adrian (0.7-2.0) mmol/L Calcium (8.4-10.2) mg/dL Phosphorus (2.5-4.5) mg/dL Magnesium (1.6-2.3) mg/dL Total Bilirubin (0.2-1.3) mg/dL AST (14-36) U/L ALT (4-34) U/L Alkaline Phosphatase (38-126) U/L Troponin I (0.000-0.034) ng/mL NT-Pro-B Natriuret Pep pg/mL Total Protein (6.3-8.2) g/dL Albumin (3.5-5.0) g/dL Urine Color Yellow Urine Appearance Cloudy H (Clear) Urine pH 5.5 (5.0-8.0) Ur Specific Victor 1.019 (1.001-1.035) Urine Protein Trace H (Negative) Urine Glucose (UA) Negative (Negative) Urine Ketones Negative (Negative) Urine Blood Negative (Negative) Urine Nitrite Positive H (Negative) Urine Bilirubin 1+ H (Negative) Urine Urobilinogen 3.0 (<2.0) mg/dL Ur Leukocyte Esterase Large H (Negative) Urine RBC 2 (0-5) /hpf Urine WBC 19 H (0-5) /hpf Urine Bacteria Many H (None) /hpf Urine Mucus Rare H (None) /hpf Urine Yeast (Budding) Occasional H (None) /hpf Influenza Type A (PCR) (Not Detectd) Influenza Type B (PCR) (Not Detectd) RSV (PCR) (Not Detectd) SARS-CoV-2 (PCR) (Not Detectd) Disposition Clinical Impression: MARC (acute kidney injury), Cholelithiasis, Sepsis secondary to UTI, Acute pulmonary edema Disposition: OTHER INSTITUTION NOT DEFINED Condition: Stable Referrals: Nonstaff,Physician [Primary Care Provider] - 1-2 days Time of Disposition: 14:20 - Out of Hospital Transfer - Req. Specs Out of Hospital Transfer - Requested Specifics: Other Emergency Center ([facility])
[2025-03-07] MEDS: ACETAMINOPHEN TAB 500 MG TAB PO STA (11:26)
[2025-03-07] MEDS: SODIUM CHLORIDE 0.9% 1,000 ML IV STA (11:36)
[2025-03-07] MEDS: ONDANSETRON 4 MG/2 ML VIAL IVP STA (11:36)
[2025-03-07 11:49] LABS: Basophils # (A) 0.05 10*3/uL (0.00-0.10); Basophils % (A) 0.4 %; Eosinophils # (A) 0.02 10*3/uL (0.04-0.35); Eosinophils % (A) 0.1 %; HGB 13.2 g/dL (12.0-15.0); Lymphocytes # (A) 0.51 10*3/uL (0.90-5.00); Lymphocytes % (A) 3.7 %; MCH 31.6 pg (27.0-32.0); MCHC 33.8 g/dL (32.0-37.0); MCV 93.3 fL (80.0-97.0); Mean Platelet Volume 10.6 fL (9.5-12.2); Monocytes # (A) 0.64 10*3/uL (0.20-1.00); Monocytes % (A) 4.7 %; Neutrophils # (A) 12.41 10*3/uL (1.80-7.70); Neutrophils % (A) 90.4 %; Platelet Count 231 10*3/uL (140-440); RBC 4.18 10*6/uL (4.10-5.20); RDW 13.4 % (11.5-14.5); WBC 13.73 10*3/uL (4.50-10.00)
--- NOTE | 2025-03-07 11:59 | XR ---
EXAMINATION TYPE: XR chest 2V DATE OF EXAM: 03/07/2025 11:53 AM COMPARISON: 10/28/2023 CLINICAL INDICATION: Female, 85 years old with history of Weakness; [facility] TECHNIQUE: XR chest 2V Frontal and lateral views of the chest. FINDINGS: Lungs/Pleura: Midlung lateral nodule-like opacity possibly summation of overlapping soft tissues. There is no evide nce of pleural effusion, focal consolidation, or pneumothorax. Pulmonary vascularity: Pulmonary vascular congestion. Heart/mediastinum: Cardiomediastinal silhouette is unremarkable. Musculoskeletal: No acute osseous pathology. IMPRESSION: 1. Right lateral midlung opacity possibly nodule. Further evaluation with CT chest recommended. 2. Pulmonary edema suggested. [facility], , 03/07/2025 11:57 AM
[2025-03-07 12:12] LABS: Partial Thromboplastin Time 24.5 sec (22.0-30.0); Prothrombin Time 11.4 sec (10.0-12.5)
[2025-03-07 12:16] LABS: ALT 118 U/L (4-34); AST 71 U/L (14-36); African American GFR (CKD) 44 (>60 ml/min/1.73 sqM); Alkaline Phosphatase 141 U/L (38-126); Anion Gap 11 mmol/L; Blood Urea Nitrogen 42 mg/dL (7-17); Calcium 9.7 mg/dL (8.4-10.2); Carbon Dioxide 31 mmol/L (22-30); Chloride 96 mmol/L (98-107); Glucose 131 mg/dL (74-99); Magnesium 1.7 mg/dL (1.6-2.3); Non-African American GFR(CKD) 38 (>60 ml/min/1.73 sqM); Phosphorus 3.3 mg/dL (2.5-4.5); Potassium 3.6 mmol/L (3.5-5.1); Sodium 138 mmol/L (137-145); Total Bilirubin 3.3 mg/dL (0.2-1.3); Total Protein 7.1 g/dL (6.3-8.2)
[2025-03-07 12:25] LABS: Influenza A Not Detected (Not Detectd); Influenza B Not Detected (Not Detectd); NT-Pro-B-Type Natriuretic Pept 3070 pg/mL; RSV Not Detected (Not Detectd)
--- NOTE | 2025-03-07 13:42 | US ---
EXAMINATION TYPE: US gallbladder DATE OF EXAM: 03/07/2025 COMPARISON: CT 09/25/2023 CLINICAL INDICATION: Female, 85 years old with history of Elevated LFTs, bilirubin; Abdominal pain an d vomiting. TECHNIQUE: Grayscale and color Doppler imaging of the right upper quadrant. FINDINGS: EXAM MEASUREMENTS: Liver Length: 16.7 cm Gallbladder Wall: obscured by overlying bowel gas CBD: 1.3cm, color Doppler imaging was utilized to isolate the common bile duct for measurement. Right Kidney: 9.7 x 3.6 x 4.4 cm PUMPER GAUGER APPRENTICE NOTES: Exam very limited by bowel gas and patient body habitus. Pancreas: Portions visualized appear echogenic, tail obscured by overlying bowel gas Liver: Enlarged Gallbladder: Obscured by bowel gas, possible echogenic foci within. Unable to visualize LLD Evidence for sonographic Ikncaid's sign: No CBD: Dilated Right Kidney: Hypoechoic area on the superior pole measuring 2.9 x 3.4 x 3.2 cm suggestive of cys t. IMPRESSION: 1. No evidence for acute process. 2. Limiting evaluation due to body habitus Cholelithiasis suggested. 3. Hepatic steatosis. 4. Hepatomegaly. [facility], , 03/07/2025 1:40 PM
[2025-03-07] MEDS: LACTATED RINGERS 1,000 ML IV ONE (13:44)
[2025-03-07 14:36] LABS: Appearance,Urine Cloudy (Clear); Bacteria,Urine Many /hpf; Bilirubin,Urine 1+ (Negative); Blood,Urine Negative (Negative); Budding Yeast,Urine Occasional /hpf; Color,Urine Yellow; Glucose,Urine (UA) Negative (Negative); Ketones,Urine Negative (Negative); Leukocyte Esterase,Urine Large (Negative); Mucus,Urine Rare /hpf; Nitrite,Urine Positive (Negative); PH, Urine 5.5 (5.0-8.0); Protein,Urine Trace (Negative); RBC,Urine 2 /hpf (0-5); Specific Gravity,Urine 1.019 (1.001-1.035); WBC,Urine 19 /hpf (0-5)
[2025-03-07] MEDS: metroNIDAZOLE-NS PMX 500 MG in SALINE 1 100ML.BAG IVPB STA (15:19)
[2025-03-07 15:42] VITALS: BP 103/69; PULSE 76; RESP 17; TEMP 98.8
== END 2025-03-07 16:05 | disposition other institution (70) ==
LOC: EC 10:43
DX: A41.9 Sepsis, unspecified organism (principal); N17.9 Acute kidney failure, unspecified; K80.20 Calculus of gallbladder without cholecystitis without obstruction; J81.0 Acute pulmonary edema; I11.0 Hypertensive heart disease with heart failure; I48.91 Unspecified atrial fibrillation; I50.9 Heart failure, unspecified; Z87.891 Personal history of nicotine dependence; Z88.8 Allergy status to other drugs, medicaments and biological substances
CPT/HCPCS: 99285; 96365; 96368; 96366; 96375; 96361; 36415; 93005; 85379; 83880; 80053; 83605; 83735; 84100; 84484; 85025; 85610; 85730; 81001; 87040; 87086; 87636; 71046; 76705; J2405; J0696; J1836

== ENCOUNTER 2025-03-18 09:09 | Emergency (ER) | payer MEDICARE ==
[2025-03-18 09:18] VITALS: RESP 18
[2025-03-18] MEDS: SODIUM CHLORIDE 0.9% 500 ML 500 ML IV ONE (09:44)
[2025-03-18 09:57] LABS: Basophils # (A) 0.05 10*3/uL (0.00-0.10); Basophils % (A) 0.3 %; Eosinophils # (A) 0.19 10*3/uL (0.04-0.35); Eosinophils % (A) 1.3 %; HCT 36.5 % (37.2-46.3); HGB 11.5 g/dL (12.0-15.0); Lymphocytes # (A) 0.61 10*3/uL (0.90-5.00); Lymphocytes % (A) 4.2 %; MCH 31.3 pg (27.0-32.0); MCHC 31.5 g/dL (32.0-37.0); Mean Platelet Volume 11.1 fL (9.5-12.2); Monocytes # (A) 0.76 10*3/uL (0.20-1.00); Monocytes % (A) 5.3 %; Neutrophils # (A) 12.71 10*3/uL (1.80-7.70); Neutrophils % (A) 88.3 %; Platelet Count 278 10*3/uL (140-440); RBC 3.67 10*6/uL (4.10-5.20); RDW 13.8 % (11.5-14.5)
--- NOTE | 2025-03-18 10:04 | XR ---
EXAMINATION TYPE: XR chest 2V DATE OF EXAM: 03/18/2025 9:59 AM COMPARISON: 03/07/2025 CLINICAL INDICATION: Female, 85 years old with history of Weakness: Shortness of breath TECHNIQUE: XR chest 2V views of the chest are obtained. FINDINGS: Scattered senescent parenchymal changes noted. Hyperinflation compatible with COPD. No evidence for infiltrate. No evidence for atelectasis. Heart size is stable. Mediastinal structures are stable and grossly unremarkable. No evidence for hilar prominence. Degenerative changes dorsal spine. IMPRESSION: 1. No evidence for acute pulmonary disease. [facility], , 03/18/2025 10:01 AM
[2025-03-18 10:07] LABS: MCV 99.5 fL (80.0-97.0)
[2025-03-18 10:11] LABS: ALT 13 U/L (4-34); AST 19 U/L (14-36); African American GFR (CKD) 75 (>60 ml/min/1.73 sqM); Albumin 2.8 g/dL (3.5-5.0); Alkaline Phosphatase 58 U/L (38-126); Blood Urea Nitrogen 23 mg/dL (7-17); Calcium 8.7 mg/dL (8.4-10.2); Chloride 95 mmol/L (98-107); Glucose 137 mg/dL (74-99); Magnesium 2.1 mg/dL (1.6-2.3); Non-African American GFR(CKD) 65 (>60 ml/min/1.73 sqM); Potassium 3.9 mmol/L (3.5-5.1); Sodium 138 mmol/L (137-145); Total Bilirubin 0.7 mg/dL (0.2-1.3); Total Protein 5.6 g/dL (6.3-8.2)
[2025-03-18 10:16] LABS: INR 1.1 (<1.2); Partial Thromboplastin Time 26.5 sec (22.0-30.0); Prothrombin Time 11.6 sec (10.0-12.5)
[2025-03-18 10:18] LABS: Anion Gap 6 mmol/L
[2025-03-18 10:21] LABS: Carbon Dioxide 37 mmol/L (22-30)
[2025-03-18 10:37] LABS: Appearance,Urine Cloudy (Clear); Bilirubin,Urine Negative (Negative); Blood,Urine Negative (Negative); Color,Urine Yellow; Glucose,Urine (UA) Negative (Negative); Ketones,Urine Negative (Negative); Leukocyte Esterase,Urine Trace (Negative); Mucus,Urine Rare /hpf; Nitrite,Urine Negative (Negative); Protein,Urine Trace (Negative); RBC,Urine 1 /hpf (0-5); Specific Gravity,Urine 1.027 (1.001-1.035); Squamous Epithelial Cell,Urine <1 /hpf (0-4); WBC,Urine 7 /hpf (0-5)
--- NOTE | 2025-03-18 10:39 | ED ---
Weakness HPI - General Chief complaint: Weakness Stated complaint: Weakness Time Seen by Provider: 03/18/25 09:17 Source: patient, RN notes reviewed Mode of arrival: EMS Limitations: no limitations - History of Present Illness Initial comments: 85-year-old female presents emergency department via EMS chief complaint of weakness. Patient states she came from home in which her niece called EMS secondary to her being lethargic sitting in her wheelchair. Patient states that gallstones removed 3 days ago at [facility]. She states she was dis charged and states that she has been rundown, weak feeling. No complaints of headache dizziness no focal weakness she states she has not ambulated she is wheelchair-bound. Patient denies any drainage from her incision sites. Patient denies any urinary symptoms no change in bowel habits. - Related Data Home Medications Medication Instructions Recorded Confirmed Bumetanide [BUMEX] 1 mg PO DAILY 09/25/23 03/18/25 Potassium Chloride ER [K-Dur 10] 10 meq PO BID 09/25/23 03/18/25 carvediloL [Coreg] 25 mg PO BID 09/25/23 03/18/25 ALPRAZolam [Xanax XR] 0.5 mg PO MOWEFR@0900 03/07/25 03/18/25 Acetaminophen Tab [Tylenol] 975 mg PO TID 03/07/25 03/18/25 Apixaban [Eliquis] 5 mg PO BID 03/07/25 03/18/25 Gabapentin [Neurontin] 800 mg PO TID 03/07/25 03/18/25 busPIRone HCL [Buspar] 30 mg PO BID 03/07/25 03/18/25 metOLazone [Zaroxolyn] 2.5 mg PO MOTH 03/07/25 03/18/25 Amoxic-Pot Clav 875-125Mg 1 tab PO Q12H 03/18/25 03/18/25 [Augmentin 875-125] Cholecalciferol (Vitamin D3) 50 mcg PO DAILY 03/18/25 03/18/25 [Vitamin D3 (50 Mcg = 2000 Iu)] lisinopriL [Zestril] 10 mg PO DAILY PRN 03/18/25 03/18/25 Allergies Allergy/AdvReac Type Severity Reaction Status Date / Time duloxetine [From Cymbalta] AdvReac Hallucinati Verified 03/18/25 11:33 ons Review of Systems ROS Statement: Those systems with pertinent positive or pertinent negative responses have been documented in the HPI. ROS Other: All systems not noted in ROS Statement are negative. Past Medical History Past Medical History: Atrial Fibrillation, Heart Failure, Hypertension, Myocardial Infarction ([place]) Additional Past Medical History / Comment(s): PE, 4liters home O2, nodules on lungs, History of Any Multi-Drug Resistant Organisms: None Reported Past Surgical History: No Surgical Hx Reported Additional Past Surgical History / Comment(s): gall stones removed, Past Anesthesia/Blood Transfusion Reactions: No Reported Reaction Past Psychological History: Anxiety, Depression Smoking Status: Former smoker Past Alcohol Use History: None Reported Past Drug Use History: None Reported General Exam Limitations: no limitations General appearance: alert, in no apparent distress Head exam: Present: atraumatic, normocephalic, normal inspection Eye exam: Present: normal appearance, PERRL, EOMI. Absent: scleral icterus, conjunctival injection, periorbital swelling ENT exam: Present: normal exam, mucous membranes moist Neck exam: Present: normal inspection, full ROM. Absent: tenderness, meningismus, lymphadenopathy Respiratory exam: Present: normal lung sounds bilaterally. Absent: respiratory distress, wheezes, rales, rhonchi, stridor Cardiovascular Exam: Present: regular rate, normal rhythm, normal heart sounds. Absent: systolic murmur, diastolic murmur, rubs, gallop, clicks GI/Abdominal exam: Present: soft, normal bowel sounds, other (Incisions are noted, Dermabond intact, no erythema no purulent drainage). Absent: distended, tenderness, guarding, rebound, rigid Back exam: Absent: CVA tenderness (R), CVA tenderness (L) Neurological exam: Present: alert, oriented X3, CN II-XII intact Course Vital Signs 03/18/25 03/18/25 03/18/25 09:12 09:23 11:04 Temperature 97.4 F L Pulse Rate 71 71 66 Respiratory 18 18 18 Rate Blood Pressure 102/61 102/61 O2 Sat by Pulse 98 99 99 Oximetry 03/18/25 12:04 Temperature 98.0 F Pulse Rate 77 Respiratory 18 Rate Blood Pressure 121/73 O2 Sat by Pulse 96 Oximetry EKG Findings - EKG Comments: EKG Findings:: EKG performed at 9: 17 A-fib rate of 79 QRS 84 QT/QTc - EKG Results: EKG: interpreted by TATIANNA Medical Decision Making - Medical Decision Making Was pt. sent in by a medical professional or institution (, JASE, BOOT AND SADDLE REPAIR PERSON, urgent care, hospital, or [place] health care facility...) When possible be specific @ -No Did you speak to anyone other than the patient for history (EMS, parent, family, police, friend...)? What history was obtained from this source @ -Family in the room providing history of the event Did you review nursing and triage notes (agree or disagree)? Why? @ -I reviewed and agree with nursing and triage notes Were old charts reviewed (outside hosp., previous admission, EMS record, old EKG, old radiological studies, urgent care reports/EKG's, [place] health care facility records)? Report findings @ -No old charts were reviewed Differential Diagnosis (chest pain, altered mental status, abdominal pain women, abdominal pain men, vaginal bleeding, weakness, fever, dyspnea, syncope, headache, dizziness, GI bleed, back pain, seizure, CVA, palpatations, mental health, musculoskeletal)? @ -Differential Syncope: Valvular disease, hypertrophic cardiomyopathy, pulmonary embolism, tamponade, tachycardia, bradycardia, [place], hypovolemia, hemorrhage, dissection, anemia, intracranial hemorrhage, seizure, hypoglycemia, carbon monoxide poisoning, this is not meant to be an all-inclusive list. EKG interpreted by me (3pts min.). @ -As above X-rays interpreted by me (1pt min.). @ -None done CT interpreted by me (1pt min.). @ -None done U/S interpreted by me (1pt. min.). @ -None done What testing was considered but not performed or refused? (CT, X-rays, U/S, labs)? Why? @ -None What meds were considered but not given or refused? Why? @ -None Did you discuss the management of the patient with other professionals (professionals i.e. JASE Patel, [employer] AND SADDLE REPAIR PERSON, lab, RT, psych nurse, social service liaison, plumber's helper, teacher, textile technical officer, director of casework services)? Give summary @ -No Was smoking cessation discussed for >3mins.? @ -No Was critical care preformed (if so, how long)? @ -No Were there social determinants of health that impacted care today? How? (Homelessness, low income, unemployed, alcoholism, drug addiction, transportatio n, low edu. Level, literacy, decrease access to med. care, alf, rehab)? @ -No Was there de-escalation of care discussed even if they declined (Discuss DNR or withdrawal of care, Hospice)? DNR status @ -No What co-morbidities impacted this encounter? (DM, HTN, Smoking, COPD, CAD, Cancer, CVA, ARF, Chemo, Hep., AIDS, mental health diagnosis, sleep apnea, morbid obesity)? @ -None Was patient admitted / discharged? Hospital course, mention meds given and route, prescriptions, significant lab abnormalities, going to OR and other pertinent info. @ -Discharge patient has no complaints patient is awake alert and orientated patient negative workup this time patient was offered admission along with joe barba in the room but felt comfortable discharge at this time and will return for any worsening changes symptoms. We discussed possibility of near syncopal episode causing this versus other causes and continues to feel comfortable with discharge. Undiagnosed new problem with uncertain prognosis? @ -No Drug Therapy requiring intensive monitoring for toxicity (Heparin, Nitro, Insulin, Cardizem)? @ -No Were any procedures done? @ -No Diagnosis/symptom? @ -Near syncope Acute, or Chronic, or Acute on Chronic? @ -Acute Uncomplicated (without systemic symptoms) or Complicated (systemic symptoms)? @ -Uncomplicated Side effects of treatment? @ -No Exacerbation, Progression, or Severe Exacerbation? @ -No Poses a threat to life or bodily function? How? (Chest pain, [place], [place], pneumonia, PE, COPD, DKA, ARF, appy, cholecystitis, CVA, Diverticulitis, Homicidal, Suicidal, threat to staff... and all critical care pts) @ -No - Lab Data Result diagrams: 03/18/25 09:38 03/18/25 09:38 Lab Results 03/18/25 03/18/25 03/18/25 Range/Units 09:38 09:38 09:38 WBC 14.40 H (4.50-10.00) 10*3/uL RBC 3.67 L (4.10-5.20) 10*6/uL Hgb 11.5 L (12.0-15.0) g/dL Hct 36.5 L (37.2-46.3) % MCV 99.5 H D (80.0-97.0) fL MCH 31.3 (27.0-32.0) pg MCHC 31.5 L (32.0-37.0) g/dL Plt Count 278 (140-440) 10*3/uL MPV 11.1 (9.5-12.2) fL Immature Gran % (Auto) 0.6 % Neutrophils % 88.3 % Lymphocytes % 4.2 % Monocytes % 5.3 % Eosinophils % 1.3 % Basophils % 0.3 % Immature Gran # 0.08 H (0.00-0.04) 10*3/uL Neutrophils # 12.71 H (1.80-7.70) 10*3/uL Lymphocytes # 0.61 L (0.90-5.00) 10*3/uL Monocytes # 0.76 (0.20-1.00) 10*3/uL Eosinophils # 0.19 (0.04-0.35) 10*3/uL Basophils # 0.05 (0.00-0.10) 10*3/uL PT 11.6 (10.0-12.5) sec INR 1.1 (<1.2) APTT 26.5 (22.0-30.0) sec Sodium 138 (137-145) mmol/L Potassium 3.9 (3.5-5.1) mmol/L Chloride 95 L (98-107) mmol/L Carbon Dioxide 37 H (22-30) mmol/L Anion Gap 6 mmol/L BUN 23 H (7-17) mg/dL Creatinine 0.83 (0.52-1.04) mg/dL Est GFR (CKD-EPI)AfAm 75 (>60 ml/min/1.73 sqM) Est GFR (CKD-EPI)NonAf 65 (>60 ml/min/1.73 sqM) Glucose 137 H (74-99) mg/dL Plasma Lactic Acid Adrian (0.7-2.0) mmol/L Calcium 8.7 (8.4-10.2) mg/dL Magnesium 2.1 (1.6-2.3) mg/dL Total Bilirubin 0.7 (0.2-1.3) mg/dL AST 19 (14-36) U/L ALT 13 (4-34) U/L Alkaline Phosphatase 58 (38-126) U/L Troponin I (0.000-0.034) ng/mL Total Protein 5.6 L (6.3-8.2) g/dL Albumin 2.8 L (3.5-5.0) g/dL Urine Color Urine Appearance (Clear) Urine pH (5.0-8.0) Ur Specific [place] (1.001-1.035) Urine Protein (Negative) Urine Glucose (UA) (Negative) Urine Ketones (Negative) Urine Blood (Negative) Urine Nitrite (Negative) Urine Bilirubin (Negative) Urine Urobilinogen (<2.0) mg/dL Ur Leukocyte Esterase (Negative) Urine RBC (0-5) /hpf Urine WBC (0-5) /hpf Ur Squamous Epith Cells (0-4) /hpf Urine Mucus (None) /hpf 03/18/25 03/18/25 03/18/25 Range/Units 09:38 09:38 10:08 WBC (4.50-10.00) 10*3/uL RBC (4.10-5.20) 10*6/uL Hgb (12.0-15.0) g/dL Hct (37.2-46.3) % MCV (80.0-97.0) fL MCH (27.0-32.0) pg MCHC (32.0-37.0) g/dL Plt Count (140-440) 10*3/uL MPV (9.5-12.2) fL Immature Gran % (Auto) % Neutrophils % % Lymphocytes % % Monocytes % % Eosinophils % % Basophils % % Immature Gran # (0.00-0.04) 10*3/uL Neutrophils # (1.80-7.70) 10*3/uL Lymphocytes # (0.90-5.00) 10*3/uL Monocytes # (0.20-1.00) 10*3/uL Eosinophils # (0.04-0.35) 10*3/uL Basophils # (0.00-0.10) 10*3/uL PT (10.0-12.5) sec INR (<1.2) APTT (22.0-30.0) sec Sodium (137-145) mmol/L Potassium (3.5-5.1) mmol/L Chloride (98-107) mmol/L Carbon Dioxide (22-30) mmol/L Anion Gap mmol/L BUN (7-17) mg/dL Creatinine (0.52-1.04) mg/dL Est GFR (CKD-EPI)AfAm (>60 ml/min/1.73 sqM) Est GFR (CKD-EPI)NonAf (>60 ml/min/1.73 sqM) Glucose (74-99) mg/dL Plasma Lactic Acid Adrian 1.0 (0.7-2.0) mmol/L Calcium (8.4-10.2) mg/dL Magnesium (1.6-2.3) mg/dL Total Bilirubin (0.2-1.3) mg/dL AST (14-36) U/L ALT (4-34) U/L Alkaline Phosphatase (38-126) U/L Troponin I <0.012 (0.000-0.034) ng/mL Total Protein (6.3-8.2) g/dL Albumin (3.5-5.0) g/dL Urine Color Yellow Urine Appearance Cloudy H (Clear) Urine pH 5.0 (5.0-8.0) Ur Specific [place] 1.027 (1.001-1.035) Urine Protein Trace H (Negative) Urine Glucose (UA) Negative (Negative) Urine Ketones Negative (Negative) Urine Blood Negative (Negative) Urine Nitrite Negative (Negative) Urine Bilirubin Negative (Negative) Urine Urobilinogen 2.0 (<2.0) mg/dL Ur Leukocyte Esterase Trace H (Negative) Urine RBC 1 (0-5) /hpf Urine WBC 7 H (0-5) /hpf Ur Squamous Epith Cells <1 (0-4) /hpf Urine Mucus Rare H (None) /hpf Disposition Clinical Impression: Near syncope Disposition: HOME SELF-CARE Condition: Stable Instructions (If sedation given, give patient instructions): Syncope (ED) Additional Instructions: Please return to the Emergency Department if symptoms worsen or any other concerns. Is patient prescribed a controlled substance at d/c from ED?: No Referrals: Nonstaff,Physician [Primary Care Provider] - 1-2 days Time of Disposition: 11:29
[2025-03-18 12:07] VITALS: BP 121/73; PULSE 77; TEMP 98
== END 2025-03-18 12:15 | disposition home or self-care (01) ==
LOC: EC 09:09
DX: R55 Syncope and collapse (principal); I48.91 Unspecified atrial fibrillation; Z87.891 Personal history of nicotine dependence; Z88.8 Allergy status to other drugs, medicaments and biological substances
CPT/HCPCS: 36415; 71046; 80053; 81001; 83605; 83735; 84484; 85025; 85610; 85730; 93005; 96360; 96361; 99284

== ENCOUNTER 2025-04-08 19:46 | Inpatient (IN) | payer MEDICARE ==
--- NOTE | 2025-04-08 21:01 | ED ---
Weakness HPI - General Chief complaint: Weakness Stated complaint: Diarrhea, L Leg Pain Time Seen by Provider: 04/08/25 20:47 Source: patient, family, RN notes reviewed, old records reviewed Mode of arrival: wheelchair Limitations: no limitations - History of Present Illness Initial comments: This is an 85-year-old female to the ER for evaluation patient went today for evaluation of weakness severe and significant weakness with multiple recent and prior ER visits for similar symptoms MD Complaint: generalized weakness, lack of energy, difficulty walking -: days(s) Location: generalized Severity: moderate Severity scale (1-10): 5 Consistency: constant Improves with: none Worsens with: none Context: recent illness, history of similar Associated Symptoms: denies other symptoms - Related Data Home Medications Medication Instructions Recorded Confirmed Bumetanide [BUMEX] 1 mg PO DAILY 09/25/23 04/09/25 Potassium Chloride ER [K-Dur 10] 10 meq PO BID 09/25/23 04/09/25 carvediloL [Coreg] 25 mg PO BID 09/25/23 04/09/25 ALPRAZolam [Xanax XR] 0.5 mg PO MOWEFR@0900 03/07/25 04/09/25 Acetaminophen Tab [Tylenol] 975 mg PO TID 03/07/25 04/09/25 Apixaban [Eliquis] 5 mg PO BID 03/07/25 04/09/25 Gabapentin [Neurontin] 800 mg PO TID 03/07/25 04/09/25 busPIRone HCL [Buspar] 30 mg PO BID 03/07/25 04/09/25 metOLazone [Zaroxolyn] 2.5 mg PO MOTH 03/07/25 04/09/25 Cholecalciferol (Vitamin D3) 50 mcg PO DAILY 03/18/25 04/09/25 [Vitamin D3 (50 Mcg = 2000 Iu)] lisinopriL [Zestril] 10 mg PO DAILY PRN 03/18/25 04/09/25 Allergies Allergy/AdvReac Type Severity Reaction Status Date / Time duloxetine [From Cymbalta] AdvReac Hallucinati Verified 04/09/25 07:58 ons Review of Systems ROS Statement: Those systems with pertinent positive or pertinent negative responses have been documented in the HPI. ROS Other: All systems not noted in ROS Statement are negative. Past Medical History Past Medical History: Atrial Fibrillation, Heart Failure, Hypertension, Myocardial Infarction ([place]) Additional Past Medical History / Comment(s): PE, 4liters home O2, nodules on lungs, History of Any Multi-Drug Resistant Organisms: None Reported Past Surgical History: No Surgical Hx Reported Additional Past Surgical History / Comment(s): gall stones removed, Past Anesthesia/Blood Transfusion Reactions: No Reported Reaction Past Psychological History: Anxiety, Depression Smoking Status: Former smoker Past Alcohol Use History: None Reported Past Drug Use History: None Reported General Exam Limitations: no limitations General appearance: alert, in no apparent distress Head exam: Present: atraumatic, normocephalic, normal inspection Eye exam: Present: normal appearance, PERRL, EOMI. Absent: scleral icterus, conjunctival injection, periorbital swelling ENT exam: Present: normal exam, mucous membranes moist Neck exam: Present: normal inspection. Absent: tenderness, meningismus, lymphadenopathy Respiratory exam: Present: normal lung sounds bilaterally. Absent: respiratory distress, wheezes, rales, rhonchi, stridor Cardiovascular Exam: Present: regular rate, normal rhythm, normal heart sounds. Absent: systolic murmur, diastolic murmur, rubs, gallop, clicks GI/Abdominal exam: Present: soft, normal bowel sounds. Absent: distended, ten derness, guarding, rebound, rigid Extremities exam: Present: normal inspection, full ROM, normal capillary refill. Absent: tenderness, pedal edema, joint swelling, calf tenderness Back exam: Present: normal inspection Neurological exam: Present: alert, oriented X3, CN II-XII intact Psychiatric exam: Present: normal affect, normal mood Skin exam: Present: warm, dry, intact, normal color. Absent: rash Course Vital Signs 04/08/25 04/08/25 04/08/25 20:31 22:35 23:00 Temperature 98.7 F Pulse Rate 71 78 74 Respiratory 19 18 20 Rate Blood Pressure 66/46 110/80 121/100 O2 Sat by Pulse 100 96 Oximetry 04/09/25 04/09/25 04/09/25 00:00 01:00 02:01 Temperature Pulse Rate 90 86 91 Respiratory 20 18 20 Rate Blood Pressure 120/66 92/60 106/64 O2 Sat by Pulse 96 97 98 Oximetry - Reevaluation(s) Reevaluation #1: 04/08/25 21:13 Medical records reviewed Reevaluation #2: 04/08/25 21:14 Patient symptoms improved in the ER relatively unchanged from baseline Reevaluation #3: 04/08/25 22:55 Patient informed of results questions answered Reevaluation #4: Was pt. sent in by a medical professional or institution (JAES Patel, ASSEMBLER TRUCK TRAILER, urgent care, hospital, or correction...) When possible be specific @ -no Did you speak to anyone other than the patient for history (EMS, parent, family, police, friend...)? What history was obtained from this source @ -no Did you review nursing and triage notes (agree or disagree)? Why? @ -agree Are old charts reviewed (outside hosp., previous admission, EMS record, old EKG, old radiological studies, urgent care reports/EKG's, correction records)? Report findings @ -yes Differential Diagnosis (chest pain, altered mental status, abdominal pain women, abdominal pain men, vaginal bleeding, weakness, fever, dyspnea, syncope, headache, dizziness, GI bleed, back pain, seizure, CVA, palpatations, mental health, musculoskeletal)? @ -prior EKG interpreted by me (3pts min.). @ -no X-rays interpreted by me (1pt min.). @ -no CT interpreted by me (1pt min.). @ -no U/S interpreted by me (1pt. min.). @ -no What testing was considered but not performed or refused? (CT, X-rays, U/S, labs)? Why? @ -none What meds were considered but not given or refused? Why? @ -none Did you discuss the management of the patient with other professionals (professionals i.e. JASE Patel, ASSEMBLER TRUCK TRAILER, lab, RT, psych nurse, social services analyst, carpet tile layer, teacher, personnel training officer, high risk case manager)? Give summary @ -no Was smoking cessation discussed for >3mins.? @ -no Was critical care preformed (if so, how long)? @ -no Were there social determinants of health that impacted care today? How? (Homelessness, low income, unemployed, alcoholism, drug addiction, transportation, low edu. Level, literacy, decrease access to med. care, longterm, rehab)? @ -none Was there de-escalation of care discussed even if they declined (Discuss DNR or withdrawal of care, Hospice)? DNR status @ -no What co-morbidities impacted this encounter? (DM, HTN, Smoking, COPD, CAD, Cancer, CVA, ARF, Chemo, Hep., AIDS, mental health diagnosis, sleep apnea, morbid obesity)? @ -none Was patient admitted / discharged? Hospital course, mention meds given and route, prescriptions, significant lab abnormalities, going to OR and other pertinent info. @ - 85 female to the ER for evaluation positive weakness with low blood pressure patient admitted for blood pressure management Admitted Undiagnosed new problem with uncertain prognosis? @ -no Drug Therapy requiring intensive monitoring for toxicity (Heparin, Nitro, Insulin, Cardizem)? @ -no Were any procedures done? @ -no Diagnosis/symptom? @ -Uncontrolled hypertension, urgency Acute, or Chronic, or Acute on Chronic? @ -Acute Uncomplicated (without systemic symptoms) or Complicated (systemic symptoms)? @ -Complicated Side effects of treatment? @ -no Exacerbation, Progression, or Severe Exacerbation? @ -exacerbation Poses a threat to life or bodily function? How? (Chest pain, [place], [place], pneumonia, PE, COPD, DKA, ARF, appy, cholecystitis, CVA, Diverticulitis, Homicidal, Suicidal, threat to staff... and all critical care pts) @ -yes extremes of age Reevaluation #5: 0 differential Weakness: Hypoglycemia, shock, sepsis, hyponatremia, anemia, infection, [place], ETOH, adverse medicine reaction, overdose, stroke, this is not meant to be an all-inclusive list. 04/08/25 21:14 - Consultations Consultation #1: Spoke with admitting physicians who agreed to admit this patient Medical Decision Making - Medical Decision Making 85 female to the ER for evaluation positive weakness with low blood pressure patient admitted for blood pressure management - Lab Data Result diagrams: 04/12/25 05:57 04/12/25 05:54 Lab Results 04/08/25 04/08/25 04/08/25 Range/Units 21:15 21:15 21:15 WBC 9.08 (4.50-10.00) 10*3/uL RBC 3.32 L (4.10-5.20) 10*6/uL Hgb 10.3 L (12.0-15.0) g/dL Hct 31.7 L (37.2-46.3) % MCV 95.5 (80.0-97.0) fL MCH 31.0 (27.0-32.0) pg MCHC 32.5 (32.0-37.0) g/dL Plt Count 236 (140-440) 10*3/uL MPV 10.7 (9.5-12.2) fL Immature Gran % (Auto) 0.4 % Neutrophils % 75.6 % Lymphocytes % 9.7 % Monocytes % 11.3 % Eosinophils % 2.6 % Basophils % 0.4 % Immature Gran # 0.04 (0.00-0.04) 10*3/uL Neutrophils # 6.85 (1.80-7.70) 10*3/uL Lymphocytes # 0.88 L (0.90-5.00) 10*3/uL Monocytes # 1.03 H (0.20-1.00) 10*3/uL Eosinophils # 0.24 (0.04-0.35) 10*3/uL Basophils # 0.04 (0.00-0.10) 10*3/uL PT 11.6 (10.0-12.5) sec INR 1.1 (<1.2) APTT 26.7 (22.0-30.0) sec Sodium 130 L (137-145) mmol/L Potassium 4.0 (3.5-5.1) mmol/L Chloride 95 L (98-107) mmol/L Carbon Dioxide 28 (22-30) mmol/L Anion Gap 7 mmol/L BUN 49 H (7-17) mg/dL Creatinine 1.22 H (0.52-1.04) mg/dL Est GFR (CKD-EPI)AfAm 47 (>60 ml/min/1.73 sqM) Est GFR (CKD-EPI)NonAf 41 (>60 ml/min/1.73 sqM) Glucose 102 H (74-99) mg/dL Plasma Lactic Acid Adrian (0.7-2.0) mmol/L Calcium 8.8 (8.4-10.2) mg/dL Phosphorus 3.7 (2.5-4.5) mg/dL Magnesium 1.7 (1.6-2.3) mg/dL Total Bilirubin 0.4 (0.2-1.3) mg/dL AST 14 (14-36) U/L ALT 9 (4-34) U/L Alkaline Phosphatase 49 (38-126) U/L Ammonia (<30) umol/L Troponin I (0.000-0.034) ng/mL Total Protein 5.5 L (6.3-8.2) g/dL Albumin 2.8 L (3.5-5.0) g/dL 04/08/25 04/08/25 04/08/25 Range/Units 21:15 21:15 22:35 WBC (4.50-10.00) 10*3/uL RBC (4.10-5.20) 10*6/uL Hgb (12.0-15.0) g/dL Hct (37.2-46.3) % MCV (80.0-97.0) fL MCH (27.0-32.0) pg MCHC (32.0-37.0) g/dL Plt Count (140-440) 10*3/uL MPV (9.5-12.2) fL Immature Gran % (Auto) % Neutrophils % % Lymphocytes % % Monocytes % % Eosinophils % % Basophils % % Immature Gran # (0.00-0.04) 10*3/uL Neutrophils # (1.80-7.70) 10*3/uL Lymphocytes # (0.90-5.00) 10*3/uL Monocytes # (0.20-1.00) 10*3/uL Eosinophils # (0.04-0.35) 10*3/uL Basophils # (0.00-0.10) 10*3/uL PT (10.0-12.5) sec INR (<1.2) APTT (22.0-30.0) sec Sodium (137-145) mmol/L Potassium (3.5-5.1) mmol/L Chloride (98-107) mmol/L Carbon Dioxide (22-30) mmol/L Anion Gap mmol/L BUN (7-17) mg/dL Creatinine (0.52-1.04) mg/dL Est GFR (CKD-EPI)AfAm (>60 ml/min/1.73 sqM) Est GFR (CKD-EPI)NonAf (>60 ml/min/1.73 sqM) Glucose (74-99) mg/dL Plasma Lactic Acid Adrian 0.9 (0.7-2.0) mmol/L Calcium (8.4-10.2) mg/dL Phosphorus (2.5-4.5) mg/dL Magnesium (1.6-2.3) mg/dL Total Bilirubin (0.2-1.3) mg/dL AST (14-36) U/L ALT (4-34) U/L Alkaline Phosphatase (38-126) U/L Ammonia 9 (<30) umol/L Troponin I <0.012 (0.000-0.034) ng/mL Total Protein (6.3-8.2) g/dL Albumin (3.5-5.0) g/dL Disposition Clinical Impression: Weakness, Altered mental status, Debility, Dehydration Disposition: ADMITTED IP TO THIS HOSP Condition: Fair Is patient prescribed a controlled substance at d/c from ED?: No Time of Disposition: 23:00
[2025-04-08 21:36] LABS: Basophils # (A) 0.04 10*3/uL (0.00-0.10); Basophils % (A) 0.4 %; Eosinophils # (A) 0.24 10*3/uL (0.04-0.35); Eosinophils % (A) 2.6 %; HCT 31.7 % (37.2-46.3); HGB 10.3 g/dL (12.0-15.0); Lymphocytes # (A) 0.88 10*3/uL (0.90-5.00); Lymphocytes % (A) 9.7 %; MCH 31.0 pg (27.0-32.0); MCHC 32.5 g/dL (32.0-37.0); MCV 95.5 fL (80.0-97.0); Monocytes # (A) 1.03 10*3/uL (0.20-1.00); Monocytes % (A) 11.3 %; Neutrophils # (A) 6.85 10*3/uL (1.80-7.70); Neutrophils % (A) 75.6 %; Platelet Count 236 10*3/uL (140-440); RBC 3.32 10*6/uL (4.10-5.20); RDW 13.3 % (11.5-14.5); WBC 9.08 10*3/uL (4.50-10.00)
[2025-04-08 21:47] LABS: ALT 9 U/L (4-34); AST 14 U/L (14-36); African American GFR (CKD) 47 (>60 ml/min/1.73 sqM); Albumin 2.8 g/dL (3.5-5.0); Alkaline Phosphatase 49 U/L (38-126); Anion Gap 7 mmol/L; Blood Urea Nitrogen 49 mg/dL (7-17); Calcium 8.8 mg/dL (8.4-10.2); Carbon Dioxide 28 mmol/L (22-30); Chloride 95 mmol/L (98-107); Glucose 102 mg/dL (74-99); Magnesium 1.7 mg/dL (1.6-2.3); Non-African American GFR(CKD) 41 (>60 ml/min/1.73 sqM); Potassium 4.0 mmol/L (3.5-5.1); Sodium 130 mmol/L (137-145); Total Protein 5.5 g/dL (6.3-8.2)
[2025-04-08 21:51] LABS: INR 1.1 (<1.2); Partial Thromboplastin Time 26.7 sec (22.0-30.0); Prothrombin Time 11.6 sec (10.0-12.5)
[2025-04-08] MEDS: LACTATED RINGERS 1,000 ML IV SCH (22:27)
[2025-04-08] MEDS ORDERED: NALOXONE 0.4 MG/ML 1 ML VIAL IV PRN (22:44)
[2025-04-08] MEDS ORDERED: ONDANSETRON 4 MG/2 ML VIAL IVP PRN (22:50)
[2025-04-08] MEDS: MORPHINE SULFATE 4 MG/ML SYRINGE IVP STA (23:45)
[2025-04-09] MEDS: SODIUM CHLORIDE 0.9% 1,000 ML IV SCH (01:09)
--- NOTE | 2025-04-09 04:17 | P.HPIM ---
History of Present Illness H&P Date: 04/09/25 Chief Complaint: generalized weakness Patient is a 85-year-old female with a PMH of - Atrial fibrillation -Heart failure -Primary hypertension -History of myocardial infarction -History of pulmonary embolism Comes into the ED for evaluation of generalized weakness. Was not able to obtain full history from patient . patient stated that she felt cold this morning, and started shaking. Patient never had the symptoms before. She stated that she lives at home with her boyfriend and her niece who takes care of her. She denied having fever, cough, chest pain, shortness of breath, abdominal pain, numbness or tingling. Labs WBC 9.08, Hgb 10.3, HCT 31.7, plt count 236 Na 130, K 4, Cl 95, CO2 28, BUN 49, Cr 1.22, GFR 41 Vitals T 98.9F, HR 74, RR 20, BP 121/100, O2 sat 96% on RA ED documentation reviewed Review of systems: Pertinent positives and negatives as discussed in HPI, a complete review of systems was performed and all other systems are negative. Physical examination: Vital signs reviewed General: non toxic, no distress, appears at stated age, normal weight Derm: no unusual rashes/lesions, warm Head: atraumatic, normocephalic, symmetric Eyes: EOMI, anicteric sclera, pupils equal round reactive to light ENT: Nose and ears atraumatic Neck: No cervical lymphadenopathy, trachea midline, supple Mouth: no lip lesion, mucus membranes moist Cardiovascular: S1S2 reg, no murmur, positive dorsalis pedis pulse bilateral, no edema Lungs: CTA bilateral, no rhonchi, no rales, no accessory muscle use Abdominal: soft, mildly distended, increase note of tympanic percussion in the epigastric region , nontender to palpation, no guarding Ext: muscle strength 5 out of 5 in all 4 extremities grossly, no gross muscle atrophy Neuro: CN II-XI grossly intact, no gross focal neuro deficits Psych: Alert, oriented to person, place, and time Assessment/Plan: #. Acute anemia rule out GI bleeding - Hemoglobin 10.3 continue to trend - Occult blood stool positive -consult surgery - Monitor hemoglobin levels closely - Obtain abdominal x-ray and CT scan #. Primary hypertension -Resume Coreg 25 mg twice daily, lisinopril 10 mg daily as needed #. History of pulmonary embolism #. Arterial fibrillation -Resume Eliquis and coreg #. History of myocardial infarction #. History of CHF LVEF 45-50% no valvular heart disease blood work over all unremarkable except for the anemia WBC 9.08, Hgb 10.3, HCT 31.7, plt count 236 Na 130, K 4, Cl 95, CO2 28, BUN 49, Cr 1.22, GFR 41 DVT prophylaxis: Eliquis 5mg BID PPI prophylaxis: protonix 40 mg bid The patient is admitted with an anticipated less than 2 midnight stay for evaluation of weakness CODE STATUS: Full code Discussed with: Dr. Rivera Anticipated discharge place: Pending clinical course Debra Stallings MD PGY-1 IM Dictation was produced using [employer] dictation software. please excuse any grammatical, word or spelling errors. I have seen and evaluated the patient today. I Discussed the case with the resident and agree with the resident's findings I edited the assessment and plan as necessary as documented in the resident's note. Past Medical History Past Medical History: Atrial Fibrillation, Heart Failure, Hypertension, Myocardial Infarction ([place]) Additional Past Medical History / Comment(s): PE, 4liters home O2, nodules on lungs, History of Any Multi-Drug Resistant Organisms: None Reported Past Surgical History: No Surgical Hx Reported Additional Past Surgical History / Comment(s): gall stones removed, Past Anesthesia/Blood Transfusion Reactions: No Reported Reaction Past Psychological History: Anxiety, Depression Smoking Status: Former smoker Past Alcohol Use History: None Reported Past Drug Use History: None Reported Medications and Allergies Home Medications Medication Instructions Recorded Confirmed Type Bumetanide [BUMEX] 1 mg PO DAILY 09/25/23 03/18/25 History Potassium Chloride ER [K-Dur 10] 10 meq PO BID 09/25/23 03/18/25 History carvediloL [Coreg] 25 mg PO BID 09/25/23 03/18/25 History ALPRAZolam [Xanax XR] 0.5 mg PO MOWEFR@0900 03/07/25 03/18/25 History Acetaminophen Tab [Tylenol] 975 mg PO TID 03/07/25 03/18/25 History Apixaban [Eliquis] 5 mg PO BID 03/07/25 03/18/25 History Gabapentin [Neurontin] 800 mg PO TID 03/07/25 03/18/25 History busPIRone HCL [Buspar] 30 mg PO BID 03/07/25 03/18/25 History metOLazone [Zaroxolyn] 2.5 mg PO MOTH 03/07/25 03/18/25 History Amoxic-Pot Clav 875-125Mg 1 tab PO Q12H 03/18/25 03/18/25 History [Augmentin 875-125] Cholecalciferol (Vitamin D3) 50 mcg PO DAILY 03/18/25 03/18/25 History [Vitamin D3 (50 Mcg = 2000 Iu)] lisinopriL [Zestril] 10 mg PO DAILY PRN 03/18/25 03/18/25 History Allergies Allergy/AdvReac Type Severity Reaction Status Date / Time duloxetine [From Cymbalta] AdvReac Hallucinati Verified 04/08/25 20:36 ons Physical Exam Vitals: Vital Signs Temp Pulse Pulse Resp BP BP Pulse Ox 04/09/25 02:50 98.9 F 85 18 108/61 94 L 04/09/25 02:01 91 20 106/64 98 04/09/25 01:00 86 18 92/60 97 04/09/25 00:00 90 20 120/66 96 04/08/25 23:00 74 20 121/100 96 04/08/25 22:35 78 18 110/80 04/08/25 20:31 98.7 F 71 19 66/46 100 Intake and Output 04/08/25 04/08/25 04/09/25 14:59 22:59 06:59 Other: Weight 96.162 kg Results CBC & Chem 7: 04/08/25 21:15 04/09/25 04:53 Labs: Abnormal Lab Results - Last 24 Hours (Table) 04/08/25 04/08/25 Range/Units 21:15 21:15 RBC 3.32 L (4.10-5.20) 10*6/uL Hgb 10.3 L (12.0-15.0) g/dL Hct 31.7 L (37.2-46.3) % Lymphocytes # 0.88 L (0.90-5.00) 10*3/uL Monocytes # 1.03 H (0.20-1.00) 10*3/uL Sodium 130 L (137-145) mmol/L Chloride 95 L (98-107) mmol/L BUN 49 H (7-17) mg/dL Creatinine 1.22 H (0.52-1.04) mg/dL Glucose 102 H (74-99) mg/dL Total Protein 5.5 L (6.3-8.2) g/dL Albumin 2.8 L (3.5-5.0) g/dL
[2025-04-09 05:49] LABS: Basophils # (A) 0.03 10*3/uL (0.00-0.10); Basophils % (A) 0.3 %; Eosinophils # (A) 0.17 10*3/uL (0.04-0.35); Eosinophils % (A) 1.8 %; HCT 33.4 % (37.2-46.3); HGB 10.5 g/dL (12.0-15.0); Lymphocytes # (A) 0.96 10*3/uL (0.90-5.00); Lymphocytes % (A) 10.4 %; MCH 30.6 pg (27.0-32.0); MCHC 31.4 g/dL (32.0-37.0); MCV 97.4 fL (80.0-97.0); Monocytes # (A) 1.23 10*3/uL (0.20-1.00); Monocytes % (A) 13.3 %; Neutrophils # (A) 6.79 10*3/uL (1.80-7.70); Neutrophils % (A) 73.8 %; Platelet Count 248 10*3/uL (140-440); RBC 3.43 10*6/uL (4.10-5.20); RDW 13.5 % (11.5-14.5); WBC 9.22 10*3/uL (4.50-10.00)
[2025-04-09 05:57] LABS: ALT 10 U/L (4-34); AST 14 U/L (14-36); African American GFR (CKD) 54 (>60 ml/min/1.73 sqM); Albumin 2.8 g/dL (3.5-5.0); Alkaline Phosphatase 51 U/L (38-126); Anion Gap 8 mmol/L; Blood Urea Nitrogen 48 mg/dL (7-17); Calcium 9.0 mg/dL (8.4-10.2); Carbon Dioxide 29 mmol/L (22-30); Chloride 94 mmol/L (98-107); Glucose 94 mg/dL (74-99); Non-African American GFR(CKD) 47 (>60 ml/min/1.73 sqM); Potassium 4.1 mmol/L (3.5-5.1); Sodium 131 mmol/L (137-145); Total Protein 5.5 g/dL (6.3-8.2)
[2025-04-09] MEDS: MORPHINE SULFATE 4 MG/ML SYRINGE IV PRN (06:45)
--- NOTE | 2025-04-09 07:14 | XR ---
EXAMINATION TYPE: XR abdomen 1V DATE OF EXAM: 04/09/2025 5:03 AM COMPARISON: None CLINICAL INDICATION: Female, 85 years old with history of Distended bowel; PHH, pain TECHNIQUE: One radiographic view of the abdomen was obtained. FINDINGS: There appears to be eventration right hemidiaphragm. Left base is underpenetrated and not w ell assessed. Supine imaging limited for assessment of free air. There is gassy colon throughout. Col on in the left side of the abdomen is borderline distended up to 5.9 cm. Mild stool is present. No de finite dilated small bowel loops. Right-sided pelvic phleboliths. Degenerative change throughout the lumbar spine. IMPRESSION: Borderline gassy distention of the colon up to 5.9 cm with scattered mild stool. Air extends distally to the rectum. Findings may reflect generalized ileus. No evident small bowel obstruction at this ti me. [facility], Workstation: [facility], 04/09/2025 7:12 AM
[2025-04-09] MEDS: PANTOPRAZOLE 40 MG TABLET PO SCH (08:27)
[2025-04-09] MEDS: APIXABAN 5 MG TAB PO SCH (08:27)
[2025-04-09] MEDS ORDERED: BUMETANIDE 1 MG TAB PO SCH (09:30)
[2025-04-09] MEDS: GABAPENTIN 400 MG CAP PO SCH (09:39)
[2025-04-09] MEDS: CHOLECALCIFEROL 25 MCG (1000 IU) TABLET PO SCH (09:40)
[2025-04-09] MEDS: LACTATED RINGERS 1,000 ML IV ONE ×3 (09:42→14:35)
--- NOTE | 2025-04-09 10:01 | CT ---
EXAMINATION TYPE: CT abdomen pelvis w con DATE OF EXAM: 04/09/2025 9:48 AM COMPARISON: None. CLINICAL INDICATION: Female, 85 years old with history of distended bowel; TECHNIQUE: CT of the abdomen and pelvis after IV contrast. Delayed images through the kidneys and cor onal/sagittal constructions performed. Contrast used:100 mL of Isovue 300 with IV Contrast, CT DLP: 1718 mGycm, Automated exposure control for dose reduction was used. FINDINGS: LOWER CHEST: Heart borderline enlarged. Dense mitral annular calcifications. There is a trace pericar dial effusion measuring 6 mm thick posteriorly. Dependent atelectasis posterior lung base. Underlying emphysematous change. No pleural effusion. ABDOMEN LIVER: A couple tiny cysts measuring up to 8 mm. Portal venous system is patent. GALLBLADDER AND BILE DUCTS: Gallbladder surgically absent. No biliary ductal dilatation. PANCREAS: Atrophic pancreas. SPLEEN: Unremarkable. ADRENAL GLANDS: Unremarkable. KIDNEYS AND URETERS: There are scattered bilateral renal cortical cysts measuring up to 7.0 cm on the left and 3.5 cm on the right. While there is symmetric uptake of contrast from both kidneys, there i s no excretion on delayed scan. There is a 1.9 cm stone within the left renal collecting system and a couple additional nonobstructive stones at the left lower pole measuring up to 1 cm. PELVIS BLADDER: Bladder urine distended. REPRODUCTIVE: Small post menopausal uterus. Possible 8mm endometrial stripe thickening, sagittal imag e 37. The bilateral ovaries. Mild pelvic floor relaxation. No pelvic adenopathy. No abnormal fluid co llection in the pelvis. ABDOMEN & PELVIS STOMACH AND BOWEL: Small hiatal hernia. No evidence of bowel obstruction. Mild overall snowboarding. There is a redundant sigmoid colon. A haustral appearance with a mild circumferential wall thickening distal sigmoid colon and rectum with liquid stool. More moderate circumferential wall thickening of the rectum, axial image 77. PERITONEUM/RETROPERITONEUM: No evidence of pneumoperitoneum or free fluid . VASCULATURE: Moderate atherosclerotic plaque and calcifications throughout including involvement of t he visceral artery branches. MUSCULOSKELETAL: Moderate to advanced degenerative disc disease throughout the lumbar spine. LYMPH NODES: No gross evidence for lymphadenopathy. SOFT TISSUE/ABDOMINAL WALL: Mild anasarca change. IMPRESSION: 1. Abnormal distal sigmoid colon and rectum with mild circumferential wall thickening and liquid stoo l. More moderate wall thickening at the rectum. Correlate for nonspecific infectious, inflammatory, o r ischemic colitis. The possibility of ischemic colitis not excluded given the ahaustral appearance, and back drop of moderate atherosclerotic changes. Correlate with lactic acid levels. 2. No abscess or free air. 3. No excretion of contrast on delayed kidney scan. Correlate for possible MARC. 4. Small postmenopausal uterus with possible mild endometrial stripe thickening up to 7 mm. Correlate to exclude any postmenopausal bleeding. Nonemergent pelvic ultrasound if indicated. [facility], , 04/09/2025 9:59 AM
[2025-04-09 11:48] LABS: HCT 30.2 % (37.2-46.3); HGB 9.6 g/dL (12.0-15.0); MCH 31.1 pg (27.0-32.0); MCHC 31.8 g/dL (32.0-37.0); MCV 97.7 fL (80.0-97.0); Platelet Count 223 10*3/uL (140-440); RBC 3.09 10*6/uL (4.10-5.20); RDW 13.5 % (11.5-14.5); WBC 8.12 10*3/uL (4.50-10.00)
[2025-04-09] MEDS: LACTATED RINGERS 1,000 ML IV SCH (12:55)
--- NOTE | 2025-04-09 13:14 | P.GSCN ---
History of Present Illness Consult date: 04/09/25 History of present illness: CHIEF COMPLAINT: Weakness HISTORY OF PRESENT ILLNESS: This is a 85-year-old female who presented the hospital with complaints of weakness and debility. Niece is at bedside to give most of the history. She reports that her aunt had been able to ambulate with a walker. And then within the last 5 days she has become weaker and having diffi culty with mobility. She also reports that she has been having diarrhea that has not improved with Imodium. Denies any blood in the stool. Denies any abdominal pain. She did have a hemoglobin of 10.5 and stool for occult blood was noted to be positive. Surgical service has been consulted for anemia. Patient is on Eliquis for history of atrial fibrillation. Abdominal x-ray reports borderline gaseous distention of the colon up to 5.9 cm with scattered mild stool. Air extends distally to the rectum. Findings may reflect generalized ileus. No evidence small bowel obstruction at this time. Fei also reports that in February at [facility] patient had ERCP with gallstones removed. They were unable to complete cholecystectomy due to the gallbladder being attached to the intestines. She reports that her aunt needs to follow-up with a hepatobiliary specialist but has not set up that appointment yet. Patient with recent antibiotic use between her hospitalization in February and also a UTI. Patient has had a hypotension. She is received fluid boluses. Medicine service did order a CT scan abdomen pelvis that reported abnormal distal sigmoid colon and rectum with mild circumferential wall thickening and liquid stool. More moderate wall thickening at the rectum. Correlate for nonspecific infectious inflammatory or ischemic colitis. Last colonoscopy several years ago was negative. She has never had an EGD. Last dose of Eliquis was this morning. PAST MEDICAL HISTORY: See below PAST SURGICAL HISTORY: See below MEDICATIONS: See below ALLERGIES: See below SOCIAL HISTORY: No illicit drug use. REVIEW OF SYSTEMS: CONSTITUTIONAL: Denies fever or chills. HEENT: Denies blurred vision, vision changes, or eye pain. Denies hemoptysis CARDIOVASCULAR: Denies chest pain or pressure. RESPIRATORY: No shortness of breath. GASTROINTESTINAL: See HPI for pertinent findings HEMATOLOGIC: Denies bleeding disorders. GENITOURINARY: Denies any blood in urine or increased urinary frequency. SKIN: Denies pruitis. Denies rash. PHYSICAL EXAM: VITAL SIGNS: Reviewed GENERAL: no acute distress. Appears weak. HEENT: No sclera icterus. Extraocular movements grossly intact. Moist buccal mucosa. Head is atraumatic, normocephalic. No nasal drainage. ABDOMEN: Soft. Obese. Nondistended. Nontender. No rebound or guarding noted. NEUROLOGIC: Alert and oriented. Cranial nerves II through XII grossly intact. LABORATORY DATA: WBC 8.12 Hgb 10 from 10.5-9.6. Hgb in March 18, 2025 was 11.5 Sodium 131 potassium is 4.1 creatinine 1.09 Lactic acid 1.1 LFTs normal Stool for occult blood positive IMAGING: CT scan abdomen pelvis reports abnormal distal sigmoid colon and rectum with mild circumferential wall thickening and liquid stool. More moderate wall thickening at the rectum. Correlate for nonspecific infectious inflammatory or ischemic colitis. No abscess or free air. No excretion of contrast on delayed kidney scan. Small postmenopausal uterus with possible mild endometrial stripe thickening up to 7 mm. Also notes gallbladder surgically absent. Abdominal x-ray as stated above ASSESSMENT: 1. Anemia 2. Colitis. CT scan reporting abnormal distal sigmoid colon and rectum with mild circumferential wall thickening and moderate wall thickening of the rectum. Correlate for nonspecific infectious inflammatory or ischemic colitis. PLAN: -Continue IV fluids -Continue clear liquid diet -Agree with starting Rocephin and Flagyl empirically -Agree with checking stool for C. difficile -Continue to monitor hemoglobin -Continue monitor for any signs or symptoms of bleeding -Eliquis on hold -Continue supportive care Physician Department Secretary note has been reviewed by physician. Signing provider agrees with the documented findings, assessment, and plan of care. Past Medical History Past Medical History: Atrial Fibrillation, Heart Failure, Hypertension, Myocardial Infarction ([place]) Additional Past Medical History / Comment(s): PE, 4liters home O2, nodules on lungs, Last Myocardial Infarction Date:: unk History of Any Multi-Drug Resistant Organisms: None Reported Past Surgical History: No Surgical Hx Reported Additional Past Surgical History / Comment(s): gall stones removed, Past Anesthesia/Blood Transfusion Reactions: No Reported Reaction Past Psychological History: Anxiety, Depression Smoking Status: Former smoker Past Alcohol Use History: None Reported Past Drug Use History: None Reported Medications and Allergies Home Medications Medication Instructions Recorded Confirmed Type Bumetanide [BUMEX] 1 mg PO DAILY 09/25/23 04/09/25 History Potassium Chloride ER [K-Dur 10] 10 meq PO BID 09/25/23 04/09/25 History carvediloL [Coreg] 25 mg PO BID 09/25/23 04/09/25 History ALPRAZolam [Xanax XR] 0.5 mg PO MOWEFR@0900 03/07/25 04/09/25 History Acetaminophen Tab [Tylenol] 975 mg PO TID 03/07/25 04/09/25 History Apixaban [Eliquis] 5 mg PO BID 03/07/25 04/09/25 History Gabapentin [Neurontin] 800 mg PO TID 03/07/25 04/09/25 History busPIRone HCL [Buspar] 30 mg PO BID 03/07/25 04/09/25 History metOLazone [Zaroxolyn] 2.5 mg PO MOTH 03/07/25 04/09/25 History Cholecalciferol (Vitamin D3) 50 mcg PO DAILY 03/18/25 04/09/25 History [Vitamin D3 (50 Mcg = 2000 Iu)] lisinopriL [Zestril] 10 mg PO DAILY PRN 03/18/25 04/09/25 History Allergies Allergy/AdvReac Type Severity Reaction Status Date / Time duloxetine [From Cymbalta] AdvReac Hallucinati Verified 04/09/25 07:58 ons Surgical - Exam Vital Signs Temp Pulse Resp BP Pulse Ox 98.7 F 71 19 66/46 100 04/08/25 20:31 04/08/25 20:31 04/08/25 20:31 04/08/25 20:31 04/08/25 20:31 Results - Labs 04/09/25 11:22 04/09/25 04:53 Abnormal Lab Results - Last 24 Hours (Table) 04/08/25 04/08/25 04/09/25 Range/Units 21:15 21:15 02:30 RBC 3.32 L (4.10-5.20) 10*6/uL Hgb 10.3 L (12.0-15.0) g/dL Hct 31.7 L (37.2-46.3) % MCV (80.0-97.0) fL MCHC (32.0-37.0) g/dL Lymphocytes # 0.88 L (0.90-5.00) 10*3/uL Monocytes # 1.03 H (0.20-1.00) 10*3/uL Sodium 130 L (137-145) mmol/L Chloride 95 L (98-107) mmol/L BUN 49 H (7-17) mg/dL Creatinine 1.22 H (0.52-1.04) mg/dL Glucose 102 H (74-99) mg/dL Total Protein 5.5 L (6.3-8.2) g/dL Albumin 2.8 L (3.5-5.0) g/dL Stool Occult Blood Positive H (Negative) 04/09/25 04/09/25 04/09/25 Range/Units 04:53 04:53 11:22 RBC 3.43 L 3.09 L (4.10-5.20) 10*6/uL Hgb 10.5 L 9.6 L (12.0-15.0) g/dL Hct 33.4 L 30.2 L (37.2-46.3) % MCV 97.4 H 97.7 H (80.0-97.0) fL MCHC 31.4 L 31.8 L (32.0-37.0) g/dL Lymphocytes # (0.90-5.00) 10*3/uL Monocytes # 1.23 H (0.20-1.00) 10*3/uL Sodium 131 L (137-145) mmol/L Chloride 94 L (98-107) mmol/L BUN 48 H (7-17) mg/dL Creatinine 1.09 H (0.52-1.04) mg/dL Glucose (74-99) mg/dL Total Protein 5.5 L (6.3-8.2) g/dL Albumin 2.8 L (3.5-5.0) g/dL Stool Occult Blood (Negative) Diabetes panel 04/08/25 04/09/25 Range/Units 21:15 04:53 Sodium 130 L 131 L (137-145) mmol/L Potassium 4.0 4.1 (3.5-5.1) mmol/L Chloride 95 L 94 L (98-107) mmol/L Carbon Dioxide 28 29 (22-30) mmol/L BUN 49 H 48 H (7-17) mg/dL Creatinine 1.22 H 1.09 H (0.52-1.04) mg/dL Glucose 102 H 94 (74-99) mg/dL Calcium 8.8 9.0 (8.4-10.2) mg/dL AST 14 14 (14-36) U/L ALT 9 10 (4-34) U/L Alkaline Phosphatase 49 51 (38-126) U/L Total Protein 5.5 L 5.5 L (6.3-8.2) g/dL Albumin 2.8 L 2.8 L (3.5-5.0) g/dL Calcium panel 04/08/25 04/09/25 Range/Units 21:15 04:53 Calcium 8.8 9.0 (8.4-10.2) mg/dL Phosphorus 3.7 (2.5-4.5) mg/dL Albumin 2.8 L 2.8 L (3.5-5.0) g/dL Pituitary panel 04/08/25 04/09/25 Range/Units 21:15 04:53 Sodium 130 L 131 L (137-145) mmol/L Potassium 4.0 4.1 (3.5-5.1) mmol/L Chloride 95 L 94 L (98-107) mmol/L Carbon Dioxide 28 29 (22-30) mmol/L BUN 49 H 48 H (7-17) mg/dL Creatinine 1.22 H 1.09 H (0.52-1.04) mg/dL Glucose 102 H 94 (74-99) mg/dL Calcium 8.8 9.0 (8.4-10.2) mg/dL Adrenal panel 04/08/25 04/09/25 Range/Units 21:15 04:53 Sodium 130 L 131 L (137-145) mmol/L Potassium 4.0 4.1 (3.5-5.1) mmol/L Chloride 95 L 94 L (98-107) mmol/L Carbon Dioxide 28 29 (22-30) mmol/L BUN 49 H 48 H (7-17) mg/dL Creatinine 1.22 H 1.09 H (0.52-1.04) mg/dL Glucose 102 H 94 (74-99) mg/dL Calcium 8.8 9.0 (8.4-10.2) mg/dL Total Bilirubin 0.4 0.5 (0.2-1.3) mg/dL AST 14 14 (14-36) U/L ALT 9 10 (4-34) U/L Alkaline Phosphatase 49 51 (38-126) U/L Total Protein 5.5 L 5.5 L (6.3-8.2) g/dL Albumin 2.8 L 2.8 L (3.5-5.0) g/dL
[2025-04-09] MEDS: metroNIDAZOLE-NS PMX 500 MG in SALINE 1 100ML.BAG IVPB SCH (13:37)
[2025-04-09] MEDS ORDERED: MELATONIN 3 MG TABLET PO PRN (14:30)
--- NOTE | 2025-04-09 14:36 | P.CN ---
Psychiatric Consult - . Consult date: 04/09/25 Consult:: 04/09/25 13:41 IDENTIFYING DATA: This patient is a 85-year-old female, she is she has no kids she lives with her boyfriend in a house. REASON FOR REFERRAL: Psychiatry was consulted for depression, suicidal ideations HISTORY OF PRESENT ILLNESS: The patient presented to the hospital initially on 04/08 presenting with weakness and multiple ER visits, unable to walk, debility. Patient was also found to have altered mental status. She was found to have anemia, occult blood positive in her stool. Surgery following. Patient was agreeable to speak to television script writer at the bedside, she knew her correct name age she thought it was April 14, 2025. She knew she was in [facility]. She claims that she has been feeling "awful" and relayed feeling very weak and frustrated. She claims that she is finding it difficult to deal with her multiple medical issues. She was endorsing some depression and mild anxiety. Claims that her sleep has been on and off mostly fair, appetite has been fair. At this time patient denies any suicidal or homical ideations, intent or plan. Patient denies any auditory, visual hallucinations and denies any paranoia or delusions. Patients admits to using no recreational drugs or cigarettes PAST PSYCHIATRIC HISTORY: Patient has a a history of mild depression and anxiety. Claims that she is on Xanax as needed and also taking BuSpar twice a day for anxiety. Patient denies any previous psychiatric hospitalizations. Patient denies any psychiatric outpatient follow-up. Patient denies any history of suicide attempts in the past. Past Medical History: Atrial Fibrillation, Heart Failure, Hypertension, Myocardial Infarction ([place]) Additional Past Medical History / Comment(s): PE, 4liters home O2, nodules on lungs, History of Any Multi-Drug Resistant Organisms: None Reported Past Surgical History: No Surgical Hx Reported Additional Past Surgical History / Comment(s): gall stones removed, Past Anesthesia/Blood Transfusion Reactions: No Reported Reaction Past Psychological History: Anxiety, Depression Smoking Status: Former smoker Past Alcohol Use History: None Reported Past Drug Use History: None Reported ALLERGIES: as per EMR. CHEMICAL DEPENDENCY HISTORY: as per HPI. FAMILY PSYCHIATRIC/SUBSTANCE USE HISTORY: Denies SOCIAL HISTORY: Patient was born and raised in [facility]. 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 She denies any legal history. Claims that she currently is she lives with her boyfriend in the house, and has no kids. MENTAL STATUS EXAM: General Appearance: Patient appears to be overweight, short hair, appears to be fairly debilitated, stated age is alert, attempts to be cooperative. Patient appears to have fair hygiene and grooming wearing hospital gown with fair eye contact. Behavior: Patient is calmly lying in bed without any agitated behavior. Attempts to cooperate Speech: Patient's speech is fluent and nonpressured. Mood/Affect: Patient reports their mood is "a bit depressed and anxious", affect is congruent Suicidality/Homicidality: Patient denies having any suicidal or homicidal ideation intent or plan. Perceptions: Patient denies any visual hallucinations and denies any auditory hallucinations Though content/process: There is no evidence of any delusional thought content and thought process is linear and goal-directed. Memory and concentration: AOX3, grossly intact for the purposes of this session. Can spell "WORLD" backwards Judgment and insight: Fair IMPRESSIONS: Major depressive disorder, mild Anxiety disorder unspecified Anemia PLAN: -At this time patient DOES NOT meet criteria for inpatient psychiatric admission. -Delirium precautions recommended with patient including - avoiding use of narcotics and DIRECT [employer] [facility] [employer] sedatives, limit anticholinergic medications when possible, frequent re-orientation, minimize use of restraints, open window shades during the day and close them at night -Would recommend the following medication changes/additions: Can resume BuSpar 30 mg twice daily for anxiety, added Lexapro 5 mg daily for mood/anxiety -soaking tank worker to provide patient with outpatient mental health/psychiatry resources for appropriate follow up upon discharge -Communicated plan to patient's nurse -Patient claims that she has no access to guns or weapons at the house. -Psychiatry will sign off at this time -Please contact with any questions. 04/09/25 14:31
--- NOTE | 2025-04-09 16:57 | P.PN ---
Subjective Progress Note Date: 04/09/25 Hospital course: Patient is a pleasant 85-year-old female with a past medical history of CAD, atrial fibrillation, previous pulmonary emboli, chronic systolic heart failure, hypertension, and anxiety with depression. She presented to the hospital on 04/08/2025 with a chief complaint of generalized weakness and fatigue accompanied by reports of diarrhea x 1 week. Upon arrival to our facility, patient underwent evaluation in the emergency department. Vital signs upon arrival show blood pressure 66/46, heart rate 71, respiratory rate 19, temp 98.7 F, SpO2 100% on 3 L. Labs completed and reviewed. CBC showing hemoglobin 10.3. Coagulation profile normal findings. BMP showing hypochloremic hyponatremia with chloride of 95 and sodium of 130 and elevated renal function with BUN of 49, creatinine 1.22, GFR 41 with baseline creatinine of 0.8. Patient was admitted under the services with consultation to general surgery.Abdominal X-ray completed showing borderline gaseous distention of the colon up to 5.9 cm with scattered mild stool air extending distally to the rectum, findings may reflect generalized ileus. CT abdomen and pelvis with IV contrast showing abnormal dis alfredo sigmoid colon and rectum with mild circumferential wall thickening and liquid stool more moderate wall thickening at rectum correlating for nonspecific infectious, inflammatory, or ischemic colitis. Physical exam: Patient was seen and fully evaluated at bedside this morning. She reports just feeling tired. Patient very lethargic and fatigued. Blood pressure currently 76/50. Discussed plan of care in detail with patient and patient's niece at bedside along with RN. Patient to be given 1 L bolus of lactated Ringer's and will monitor for improvement of hypotension. Patient reports continued liquid brown stool, denies hematochezia or melena, denies nausea, vomiting, or hematemesis. Patient denies having any abdominal pain or discomfort and denies any pain upon palpation. Patient denies any other complaints including headache, lightheadedness, dizziness, chest pain, palpitations, shortness of breath or experiencing any focal numbness/weakness/tingling in her extremities. Vital signs reviewed and stable. General: Nontoxic, no distress and appears stated age. Derm: Skin warm and dry, normal coloration for ethnicity. Head: Atraumatic, normocephalic and symmetric. Eyes: EOM's intact, no lid lag, and anicteric sclera Mouth: no lip lesions, mucus membranes moist Cardiovascular: regular rate and rhythm with normal S1S2, no murmur, positive posterior tibial pulses bilaterally, and cap refill < 2 seconds. Lungs: Respirations even, regular, and unlabored on supplemental oxygen. Lungs diminished otherwise no rhonchi, no rales, no wheezing, and no accessory muscle usage. Abdominal: Obese abdomen, bowel sounds x 4, soft, nontender to palpation, no guarding, no appreciable organomegaly Ext: ROM intact. No gross muscle atrophy, no edema, no contractures Neuro: Speech clear, face symmetrical and CN II-XII grossly intact with no noted focal neuro deficits Psych: Alert and oriented to person, place, time, and situation. Appropriate and pleasant affect. Assessment and Plan of Care: Colitis, rule out ischemic colitis vs infective colitis Sepsis, secondary to above Hypotension, recurrent episodes possibly secondary to the severe dehydration Failure to thrive with generalized weakness Diarrhea Acute on chronic anemia Rule out GI bleed Acute kidney injury, secondary to above -Consult placed to general surgery, discussed CT results in detail with general surgery PA. -Patient started on IV antibiotics with Rocephin 2 g daily and Flagyl 500 mg every 6 hours. -Follow-up on blood culture results, ESR, CRP, and repeat lactic acid. -Trend hemoglobin every 6 hours, transfuse as needed for hemoglobin less than 7. -IV fluid bolus lactated Ringer's 1 L followed by maintenance infusion at 100 cc/h. -Hold Bumex, Metolazone and lisinopril secondary to MARC and recurrent episodes of hypotension. -Hold Eliquis pending repeat CBC and further recommendations from general surgery team. -Obtain baseline EKG and patient to remain on continuous telemetry monitoring. Depression and feelings of hopelessness Reports of suicidal ideations -Per report, patient removed oxygen in the emergency department and stated she did not want to do this anymore. -Patient's daughter reports that patient has stated over the last week if there is a pill she could take to end her life she would do it because she wants to slit her throat. -Psychiatry was consulted for depression and suicidal ideations. Paroxysmal atrial fibrillation CAD History of pulmonary emboli Chronic systolic heart failure Hypertension -Hold Eliquis pending repeat CBC and further recommendations from general surgeon. -Patient to continue daily medication regimen with carvedilol 25 mg twice daily with parameters placed to hold for systolic blood pressure less than 100. -Hold Bumex, Metolazone and lisinopril secondary to recurrent episodes of hypotension and acute kidney injury. -Telemetry monitoring. Data and imaging reviewed: Abdominal X-ray completed showing borderline gaseous distention of the colon up to 5.9 cm with scattered mild stool air extending distally to the rectum, findings may reflect generalized ileus. CT abdomen and pelvis with IV contrast showing abnormal distal sigmoid colon and rectum with mild circumferential wall thickening and liquid stool more moderate wall thickening at rectum correlating for nonspecific infectious, inflammatory, or ischemic colitis. Vital signs reviewed. Blood pressure 76/50, heart rate 80, respiratory rate 20, temp 98.0 F, and SpO2 of 94% on 3 L. Labs reviewed. Hemoglobin trended resulting at 10.3, 10.5, and 9.6. BMP showing sodium 131, chloride 94, BUN 48, creatinine 1.09, GFR 47. Lactic acid 1.1. Liver profile unremarkable. Occult stool was positive. CODE STATUS: Full Cide DVT prophylaxis: FRANCISCA degroot/SCDs Discussed with: Patient, patient's niece at bedside, RN, and general surgery PA Anticipated discharge date: Pending clinical course Anticipated discharge place: Pending clinical course Patient was seen independently by Nurse Pracitioner. This document was prepared using [employer] dictation software. Please allow for errors in chief cruiser, while rare they do occur. Adis Corley NP rendered care for this patient independently, reviewed the findings and plan as documented in the note above and agree with plan. I did not physically speak with or examine the patient on this date. . Objective - Vital Signs Vital signs: Vital Signs Temp 98 F 04/09/25 08:43 Pulse 80 04/09/25 08:43 Resp 20 04/09/25 08:43 BP 76/50 04/09/25 08:43 Pulse Ox 94 L 04/09/25 02:50 FiO2 Intake & Output 04/08/25 04/09/25 04/09/25 18:59 06:59 18:59 Intake Total 800 Balance 800 Weight 96.162 kg Intake: Intake, IV Titration 800 Amount Lactated Ringers 1,000 ml 200 @ 130 mls/hr IV .[id number] [facility] Rx#:[id number] Sodium Chloride 0.9% 1, 600 000 ml @ 75 mls/hr IV . [id number] KASI Rx#:[id number] Other: # Voids 2 - Labs CBC & Chem 7: 04/09/25 11:22 04/09/25 04:53 Labs: Abnormal Lab Results - Last 24 Hours (Table) 04/08/25 04/08/25 04/09/25 Range/Units 21:15 21:15 02:30 RBC 3.32 L (4.10-5.20) 10*6/uL Hgb 10.3 L (12.0-15.0) g/dL Hct 31.7 L (37.2-46.3) % MCV (80.0-97.0) fL MCHC (32.0-37.0) g/dL Lymphocytes # 0.88 L (0.90-5.00) 10*3/uL Monocytes # 1.03 H (0.20-1.00) 10*3/uL Sodium 130 L (137-145) mmol/L Chloride 95 L (98-107) mmol/L BUN 49 H (7-17) mg/dL Creatinine 1.22 H (0.52-1.04) mg/dL Glucose 102 H (74-99) mg/dL Total Protein 5.5 L (6.3-8.2) g/dL Albumin 2.8 L (3.5-5.0) g/dL Stool Occult Blood Positive H (Negative) 04/09/25 04/09/25 Range/Units 04:53 04:53 RBC 3.43 L (4.10-5.20) 10*6/uL Hgb 10.5 L (12.0-15.0) g/dL Hct 33.4 L (37.2-46.3) % MCV 97.4 H (80.0-97.0) fL MCHC 31.4 L (32.0-37.0) g/dL Lymphocytes # (0.90-5.00) 10*3/uL Monocytes # 1.23 H (0.20-1.00) 10*3/uL Sodium 131 L (137-145) mmol/L Chloride 94 L (98-107) mmol/L BUN 48 H (7-17) mg/dL Creatinine 1.09 H (0.52-1.04) mg/dL Glucose (74-99) mg/dL Total Protein 5.5 L (6.3-8.2) g/dL Albumin 2.8 L (3.5-5.0) g/dL Stool Occult Blood (Negative)
[2025-04-09] MEDS: VANCOMYCIN 125 MG CAPSULE PO SCH (18:00)
[2025-04-09] MEDS: ESCITALOPRAM 5 MG TAB PO SCH (18:01)
[2025-04-09] MEDS: MIDODRINE 5 MG TAB PO STA (21:52)
[2025-04-10 00:51] LABS: HCT 28.2 % (37.2-46.3); HGB 9.2 g/dL (12.0-15.0); MCH 31.6 pg (27.0-32.0); MCHC 32.6 g/dL (32.0-37.0); MCV 96.9 fL (80.0-97.0); Platelet Count 244 10*3/uL (140-440); RBC 2.91 10*6/uL (4.10-5.20); RDW 13.5 % (11.5-14.5); WBC 8.09 10*3/uL (4.50-10.00)
[2025-04-10 03:12] LABS: HCT 30.2 % (37.2-46.3); HGB 9.3 g/dL (12.0-15.0); MCH 30.5 pg (27.0-32.0); MCHC 30.8 g/dL (32.0-37.0); MCV 99.0 FL (80.0-97.0); NRBC Per 100 WBC 0 X 10*3/uL (0.00-0.01); Platelet Count 228 X 10*3/uL (140-440); RBC 3.05 X 10*6/uL (4.10-5.20); RDW 13.7 % (11.5-14.5); WBC 7.97 X 10*3/uL (4.50-10.00)
[2025-04-10 07:53] LABS: HCT 28.5 % (37.2-46.3); HGB 8.9 g/dL (12.0-15.0); MCH 30.3 pg (27.0-32.0); MCHC 31.2 g/dL (32.0-37.0); MCV 96.9 FL (80.0-97.0); NRBC Per 100 WBC 0 X 10*3/uL (0.00-0.01); Platelet Count 187 X 10*3/uL (140-440); RBC 2.94 X 10*6/uL (4.10-5.20); RDW 13.7 % (11.5-14.5); WBC 6.97 X 10*3/uL (4.50-10.00)
[2025-04-10 08:23] LABS: ALT 7 U/L (8-44); AST 13 U/L (13-35); Albumin 2.4 g/dL (3.8-4.9); Albumin/Globulin Ratio 1.09 Ratio (1.60-3.17); Alkaline Phosphatase 42 U/L (41-126); Anion Gap 7.60 mmol/L (4.00-12.00); BUN/Creat Ratio 33.20 Ratio (12.00-20.00); Blood Urea Nitrogen 33.2 mg/dL (9.0-27.0); Calcium 8.1 mg/dL (8.7-10.3); Carbon Dioxide 26.4 mmol/L (21.6-31.8); Chloride 98 mmol/L (96-109); Globulin 2.2 g/dL (1.6-3.3); Glucose 92 mg/dL (70-110); Magnesium 1.7 mg/dL (1.5-2.4); Potassium 3.8 mmol/L (3.5-5.5); Sodium 132 mmol/L (135-145); Total Protein 4.6 g/dL (6.2-8.2)
[2025-04-10] MEDS ORDERED: ALPRAZolam 0.25 MG TAB PO SCH (09:00)
[2025-04-10] MEDS: MAGNESIUM SULFATE-D5W PMX 1 GM in DEXTROSE/WATER 1 100ML.BAG IVPB SCH (10:51)
--- NOTE | 2025-04-10 13:45 | P.PN ---
Subjective Progress Note Date: 04/10/25 Hospital course: Patient is a pleasant 85-year-old female with a past medical history of CAD, atrial fibrillation, previous pulmonary emboli, chronic systolic heart failure, hypertension, and anxiety with depression. She presented to the hospital on 04/08/2025 with a chief complaint of generalized weakness and fatigue accompanied by reports of diarrhea x 1 week. Upon arrival to our facility, patient underwent evaluation in the emergency department. Vital signs upon arrival show blood pressure 66/46, heart rate 71, respiratory rate 19, temp 98.7 F, SpO2 100% on 3 L. Labs completed and reviewed. CBC showing hemoglobin 10.3. Coagulation profile normal findings. BMP showing hypochloremic hyponatremia with chloride of 95 and sodium of 130 and elevated renal function with BUN of 49, creatinine 1.22, GFR 41 with baseline creatinine of 0.8. Patient was admitted under the services with consultation to general surgery.Abdominal X-ray completed showing borderline gaseous distention of the colon up to 5.9 cm with scattered mild stool air extending distally to the rectum, findings may reflect generalized ileus. CT abdomen and pelvis with IV contrast showing abnormal dis alfredo sigmoid colon and rectum with mild circumferential wall thickening and liquid stool more moderate wall thickening at rectum correlating for nonspecific infectious, inflammatory, or ischemic colitis. Physical exam: Patient was seen and fully evaluated at bedside this morning. She reports just feeling tired, but definitely more awake and less lethargic today. Patient's daughter at bedside states that her mother is gone up all morning and has not dozed off once showing significant improvement when compared to yesterday. Patient continues to report episodes of liquid brown stool and continues to deny having any abdominal pain or discomfort. Vital signs reviewed General: Nontoxic, no distress and appears stated age. Derm: Skin warm and dry, normal coloration for ethnicity. Head: Atraumatic, normocephalic and symmetric. Eyes: EOM's intact, no lid lag, and anicteric sclera Mouth: no lip lesions, mucus membranes moist Cardiovascular: regular rate and rhythm with normal S1S2, no murmur, positive posterior tibial pulses bilaterally, and cap refill < 2 seconds. Lungs: Respirations even, regular, and unlabored on supplemental oxygen. Lungs diminished otherwise no rhonchi, no rales, no wheezing, and no accessory muscle usage. Abdominal: Obese abdomen, bowel sounds x 4, soft, nontender to palpation, no guarding, no appreciable organomegaly Ext: ROM intact. No gross muscle atrophy, no edema, no contractures Neuro: Speech clear, face symmetrical and CN II-XII grossly intact with no noted focal neuro deficits Psych: Alert and oriented to person, place, time, and situation. Appropriate and pleasant affect. Assessment and Plan of Care: C-Diff Colitis Sepsis, secondary to above Hypotension, recurrent episodes likely secondary to the severe dehydration resulting from above Failure to thrive with generalized weakness, likely secondary to the severe dehydration resulting from above Acute on chronic anemia Ruled out GI bleed, hgb stable no signs of GI bleeding at this time Acute kidney injury, secondary to above. Improved -Consult placed to general surgery, discussed plan of care with general surgery PA. -Patient to continue IV antibiotics with Rocephin 2 g daily and Flagyl 500 mg every 6 hours as insttructed by General Surgeon in addition to oral vancomycin 125 mg Q6 hours. . -Follow-up on blood culture results, -ESR 41, CRP 18.0, and repeat lactic acid was 1.1. -Trend hemoglobin every 6 hours, transfuse as needed for hemoglobin less than 7. -IV fluid bolus lactated Ringer's 1 L followed by maintenance infusion at 100 cc/h. -Hold Bumex, Metolazone and lisinopril secondary to MARC and recurrent episodes of hypotension. -Hold Eliquis pending further recommendations from general surgery team. Depression and feelings of hopelessness Reports of suicidal ideations -Per report, patient removed oxygen in the emergency department and stated she did not want to do this anymore. -Patient's daughter reports that patient has stated over the last week if there is a pill she could take to end her life she would do it because she wants to slit her throat. -Psychiatry evaluated recommending continuation of BuSpar 30 mg twice daily and started patient on Lexapro 5 mg daily clearing patient from psychiatry perspective. Paroxysmal atrial fibrillation CAD History of pulmonary emboli Chronic systolic heart failure Hypertension -Hold Eliquis pending repeat CBC and further recommendations from general surgeon. -Patient to continue daily medication regimen with carvedilol 25 mg twice daily with parameters placed to hold for systolic blood pressure less than 100. -Hold Bumex, Metolazone and lisinopril secondary to recurrent episodes of hypotension and acute kidney injury. -Telemetry monitoring. Data and imaging reviewed: Vital signs reviewed. Blood pressure 92/62, heart rate 59, respiratory rate 16, temp 97.6 F, and SpO2 of 97% on 3 L Labs reviewed. Hemoglobin trended resulting at 10.3, 10.5, 9.6, 9.3, 9.2, and 8.9 this morning.. BMP showing sodium 132, BUN 33.2, creatinine 1.0, GFR 55. C. difficile positive. CODE STATUS: Full Cide DVT prophylaxis: FRANCISCA ofeliae/SCDs Discussed with: Patient, patient's niece at bedside, and general surgery PA Anticipated discharge date: Pending clinical course Anticipated discharge place: Pending clinical course Patient was seen independently by Nurse Pracitioner. This document was prepared using [employer] dictation software. Please allow for errors in solar photovoltaic crew lead, while rare they do occur. Adis Corley NP rendered care for this patient independently, reviewed the findings and plan as documented in the note above and agree with plan. I did not physically speak with or examine the patient on this date. . Objective - Vital Signs Vital signs: Vital Signs Temp 97.6 F 04/10/25 07:29 Pulse 59 L 04/10/25 07:29 Resp 16 04/10/25 07:29 BP 92/62 04/10/25 07:29 Pulse Ox 95 04/10/25 08:08 FiO2 Intake & Output 04/09/25 04/10/25 04/10/25 18:59 06:59 18:59 Intake Total 1160 240 Balance 1160 240 Intake: Oral 1160 240 Other: # Voids 3 # Bowel Movements 3 1 - Labs CBC & Chem 7: 04/10/25 05:30 04/10/25 05:30 Labs: Abnormal Lab Results - Last 24 Hours (Table) 04/09/25 04/09/25 04/09/25 Range/Units 11:22 11:22 15:46 RBC 3.09 L (4.10-5.20) 10*6/uL Hgb 9.6 L (12.0-15.0) g/dL Hct 30.2 L (37.2-46.3) % MCV 97.7 H (80.0-97.0) fL MCHC 31.8 L (32.0-37.0) g/dL ESR 41 H (0-30) mm/Hr Sodium (135-145) mmol/L BUN (9.0-27.0) mg/dL Est GFR (CKD-EPI) (>=60) BUN/Creatinine Ratio (12.00-20.00) Ratio Calcium (8.7-10.3) mg/dL Total Bilirubin (0.3-1.2) mg/dL ALT (8-44) U/L C-Reactive Protein 18.0 H (<1.0) mg/dL Total Protein (6.2-8.2) g/dL Albumin (3.8-4.9) g/dL Albumin/Globulin Ratio (1.60-3.17) Ratio C. difficile (EIA) Intrp Positive A (Negative) 04/09/25 04/09/25 04/10/25 Range/Units 16:35 23:30 05:30 RBC 3.05 L 2.91 L 2.94 L (4.10-5.20) 10*6/uL Hgb 9.3 L 9.2 L 8.9 L (12.0-15.0) g/dL Hct 30.2 L 28.2 L 28.5 L (37.2-46.3) % MCV 99.0 H (80.0-97.0) fL MCHC 30.8 L 31.2 L (32.0-37.0) g/dL ESR (0-30) mm/Hr Sodium (135-145) mmol/L BUN (9.0-27.0) mg/dL Est GFR (CKD-EPI) (>=60) BUN/Creatinine Ratio (12.00-20.00) Ratio Calcium (8.7-10.3) mg/dL Total Bilirubin (0.3-1.2) mg/dL ALT (8-44) U/L C-Reactive Protein (<1.0) mg/dL Total Protein (6.2-8.2) g/dL Albumin (3.8-4.9) g/dL Albumin/Globulin Ratio (1.60-3.17) Ratio C. difficile (EIA) Intrp (Negative) 04/10/25 Range/Units 05:30 RBC (4.10-5.20) 10*6/uL Hgb (12.0-15.0) g/dL Hct (37.2-46.3) % MCV (80.0-97.0) fL MCHC (32.0-37.0) g/dL ESR (0-30) mm/Hr Sodium 132 L (135-145) mmol/L BUN 33.2 H (9.0-27.0) mg/dL Est GFR (CKD-EPI) 55 L (>=60) BUN/Creatinine Ratio 33.20 H (12.00-20.00) Ratio Calcium 8.1 L (8.7-10.3) mg/dL Total Bilirubin 0.2 L (0.3-1.2) mg/dL ALT 7 L (8-44) U/L C-Reactive Protein (<1.0) mg/dL Total Protein 4.6 L (6.2-8.2) g/dL Albumin 2.4 L (3.8-4.9) g/dL Albumin/Globulin Ratio 1.09 L (1.60-3.17) Ratio C. difficile (EIA) Intrp (Negative)
--- NOTE | 2025-04-10 14:48 | P.PN ---
Subjective Progress Note Date: 04/10/25 SURGICAL PROGRESS NOTE CHIEF COMPLAINT: Weakness with diarrhea HISTORY OF PRESENT ILLNESS: Patient C. difficile colitis positive. Has been started on oral Vanco per medicine service. Patient did have 3-4 loose stools yesterday and 1 loose stool today. No blood in the stools. Blood pressures have been low. Last BP 92/62. Afebrile. WBC 6.97 Hgb 8.9 patient did receive 3 L of IV fluid boluses and is currently normal saline at 100 mL/h. Denies any abdominal pain. Denies any nausea or vomiting. PHYSICAL EXAM: VITAL SIGNS: Reviewed. GENERAL: no acute distress. HEENT: No sclera icterus. Extraocular movements grossly intact. Moist buccal mucosa. Head is atraumatic, normocephalic. ABDOMEN: Soft. Nondistended. Nontender. NEUROLOGIC: Alert and oriented. Cranial nerves II through XII grossly intact. ASSESSMENT: 1. C. difficile colitis 2. Anemia with no active bleeding PLAN: - Continue oral vancomycin for c.diff - Continue IV fluid hydration - Continue to monitor hemoglobin - Continue to hold Eliquis - ok to discontinue the IV Rocephin and IV Flagyl Physician Prop And Scenery Maker note has been reviewed by physician. Signing provider agrees with the documented findings, assessment, and plan of care. Objective - Vital Signs Vital signs: Vital Signs Temp 97.6 F 04/10/25 07:29 Pulse 59 L 04/10/25 07:29 Resp 16 04/10/25 07:29 BP 92/62 04/10/25 07:29 Pulse Ox 95 04/10/25 08:08 FiO2 Intake & Output 04/09/25 04/10/25 04/10/25 18:59 06:59 18:59 Intake Total 1160 240 Balance 1160 240 Intake: Oral 1160 240 Other: # Voids 3 # Bowel Movements 3 1 - Labs CBC & Chem 7: 04/10/25 05:30 04/10/25 05:30 Labs: Abnormal Lab Results - Last 24 Hours (Table) 04/09/25 04/09/25 04/09/25 Range/Units 11:22 11:22 15:46 RBC (4.10-5.20) X 10*6/uL Hgb (12.0-15.0) g/dL Hct (37.2-46.3) % MCV (80.0-97.0) FL MCHC (32.0-37.0) g/dL ESR 41 H (0-30) mm/Hr Sodium (135-145) mmol/L BUN (9.0-27.0) mg/dL Est GFR (CKD-EPI) (>=60) BUN/Creatinine Ratio (12.00-20.00) Ratio Calcium (8.7-10.3) mg/dL Total Bilirubin (0.3-1.2) mg/dL ALT (8-44) U/L C-Reactive Protein 18.0 H (<1.0) mg/dL Total Protein (6.2-8.2) g/dL Albumin (3.8-4.9) g/dL Albumin/Globulin Ratio (1.60-3.17) Ratio C. difficile (EIA) Intrp Positive A (Negative) 04/09/25 04/09/25 04/10/25 Range/Units 16:35 23:30 05:30 RBC 3.05 L 2.91 L 2.94 L (4.10-5.20) X 10*6/uL Hgb 9.3 L 9.2 L 8.9 L (12.0-15.0) g/dL Hct 30.2 L 28.2 L 28.5 L (37.2-46.3) % MCV 99.0 H (80.0-97.0) FL MCHC 30.8 L 31.2 L (32.0-37.0) g/dL ESR (0-30) mm/Hr Sodium (135-145) mmol/L BUN (9.0-27.0) mg/dL Est GFR (CKD-EPI) (>=60) BUN/Creatinine Ratio (12.00-20.00) Ratio Calcium (8.7-10.3) mg/dL Total Bilirubin (0.3-1.2) mg/dL ALT (8-44) U/L C-Reactive Protein (<1.0) mg/dL Total Protein (6.2-8.2) g/dL Albumin (3.8-4.9) g/dL Albumin/Globulin Ratio (1.60-3.17) Ratio C. difficile (EIA) Intrp (Negative) 04/10/25 Range/Units 05:30 RBC (4.10-5.20) X 10*6/uL Hgb (12.0-15.0) g/dL Hct (37.2-46.3) % MCV (80.0-97.0) FL MCHC (32.0-37.0) g/dL ESR (0-30) mm/Hr Sodium 132 L (135-145) mmol/L BUN 33.2 H (9.0-27.0) mg/dL Est GFR (CKD-EPI) 55 L (>=60) BUN/Creatinine Ratio 33.20 H (12.00-20.00) Ratio Calcium 8.1 L (8.7-10.3) mg/dL Total Bilirubin 0.2 L (0.3-1.2) mg/dL ALT 7 L (8-44) U/L C-Reactive Protein (<1.0) mg/dL Total Protein 4.6 L (6.2-8.2) g/dL Albumin 2.4 L (3.8-4.9) g/dL Albumin/Globulin Ratio 1.09 L (1.60-3.17) Ratio C. difficile (EIA) Intrp (Negative)
--- NOTE | 2025-04-10 19:20 | CDI ---
Documentation Clarification Form Date: 04/10/2025 06:50:47 PM From: Iris Duque RN, CCDS Phone: [phone] Admit Date: 04/08/2025 10:50:00 PM Patient Name: Sayda Rivera Visit Number: [id number] Discharge Date: ATTENTION: The Clinical Documentation Specialists (CDI) and [facility] Coding Staff appreciate your assistance in clarifying documentation. Please respond to the clarification below the line at the bottom and electronically sign. The CDI & [facility] Coding staff will review the response and follow-up if needed. Please note: Queries are made part of the Legal Health Record. If you have any questions, please contact the author of this message via ITS. Doctor. Andrez Love Sepsis is documented Internal Medicine progress note which may lack sufficient clinical evidence/support in the medical record. Additional clarification is requested. History/Risk Factors: Atrial Fibrillation, Heart Failure, Hypertension, Pulmonary embolism, 4/L HOME O2, Clinical Indicators: 85-year-old female present with generalized weakness, difficulty walking. She is alert, oriented X3. 04/08 (20:31) VS: 66/46 71 19 98.100% 3/L NC, (23:00) 120 04/08 66 90 20 96% 3/l NC 04/09 Stool Occult Blood: Positive; C. Difficile Positive A 04/09 ABD/Pelvis: Abnormal distal sigmoid colon and rectum with mild circumferential wall thickening and liquid stool, more moderate wall thickening at the rectum. Correlate for nonspecific infectious, inflammatory, or ischemic colitis. 04/08 Labs: WBC 9.08, NA 130, BUN 49, CR 41 GFR 41 Treatment: Microarray Analyst / Telemetry .9NS 1,000 ML@75 ML/HR 04/08-04/09 LR 1, 000 ML Bolus X 3 04/09-04/09 Flagyl 500 MG IVPB Q 6 HRS 04/09-04/10 Rocephin 2 GM IVPB Q 24 HRS 04/09-04/10 Vancomycin 125 MG PO QID 04/09-04/10 After work up and study, please clarify which diagnosis is most appropriate? [ ] Sepsis is ruled out. The patient had a localized infection without systemic response. [ ] Sepsis was initially suspected, but subsequent clinical findings did not support the diagnosis, and it has been ruled out. [ x ] Sepsis is clinically supported as evidenced by these additional clinical indicators: ___hypotensive initially [ ] Other, please specify [ ] Unable to determine (Template Last Reviewed: September 2023) MTDD
[2025-04-11] MEDS ORDERED: metOLazone 2.5 MG TAB PO SCH (09:24)
[2025-04-11 09:34] LABS: HCT 29.7 % (37.2-46.3); HGB 9.6 g/dL (12.0-15.0); MCH 31.1 pg (27.0-32.0); MCHC 32.3 g/dL (32.0-37.0); MCV 96.1 fL (80.0-97.0); Platelet Count 222 10*3/uL (140-440); RBC 3.09 10*6/uL (4.10-5.20); RDW 13.5 % (11.5-14.5); WBC 5.69 10*3/uL (4.50-10.00)
[2025-04-11] MEDS: ACETAMINOPHEN TAB 325 MG TAB PO PRN (09:35)
--- NOTE | 2025-04-11 10:11 | P.PN ---
Subjective Progress Note Date: 04/11/25 SURGICAL PROGRESS NOTE CHIEF COMPLAINT: Weakness with diarrhea HISTORY OF PRESENT ILLNESS: Patient sitting up at bed. Patient reports that she is hungry. She denies any abdominal pain. She had 3 loose stools yesterday and 1 loose stool during the night. No blood reported in the stools. Afebrile. BP 101/70. WBC 5.69 Hgb 8.9-9.6 PHYSICAL EXAM: VITAL SIGNS: Reviewed. GENERAL: no acute distress. HEENT: No sclera icterus. Extraocular movements grossly intact. Moist buccal mucosa. Head is atraumatic, normocephalic. ABDOMEN: Soft. Nondistended. Nontender. NEUROLOGIC: Alert and oriented. Cranial nerves II through XII grossly intact. ASSESSMENT: 1. C. difficile colitis 2. Anemia with no active bleeding PLAN: - Advance diet to full liquids - Continue oral vancomycin for c.diff - Continue IV fluid hydration - Continue to monitor hemoglobin - Continue to hold Eliquis Physician Cutter Operator [employer] note has been reviewed by physician. Signing provider agrees with the documented findings, assessment, and plan of care. Attestation Patient seen and examined at bedside. Presented with chief complaint of weakness with diarrhea. She does have C. difficile colitis. She has been treated with oral Vanco. Diet was advanced to full liquid diet and patient states that she continues to have liquid stool. Continue IV fluids. Continue to hold anticoagulation at this time. If continued significant loose stool, consider cholestyramine. Leander Caballero, DO Objective - Vital Signs Vital signs: Vital Signs Temp 97.6 F 04/11/25 07:47 Pulse 99 04/11/25 07:47 Resp 20 04/11/25 07:47 BP 101/70 04/11/25 07:47 Pulse Ox 98 04/11/25 07:47 FiO2 Intake & Output 04/10/25 04/11/25 04/11/25 18:59 06:59 18:59 Other: # Voids 1 1 # Bowel Movements 1 1 - Labs CBC & Chem 7: 04/12/25 05:57 04/11/25 09:25 Labs: Abnormal Lab Results - Last 24 Hours (Table) 04/11/25 Range/Units 09:25 RBC 3.09 L (4.10-5.20) 10*6/uL Hgb 9.6 L (12.0-15.0) g/dL Hct 29.7 L (37.2-46.3) % Microbiology - Last 24 Hours (Table) 04/09/25 11:30 Blood Culture - Preliminary Blood
[2025-04-11 10:12] LABS: ALT 9 U/L (4-34); AST 15 U/L (14-36); African American GFR (CKD) 81 (>60 ml/min/1.73 sqM); Albumin 2.4 g/dL (3.5-5.0); Albumin/Globulin Ratio 0.9; Alkaline Phosphatase 44 U/L (38-126); Anion Gap 5 mmol/L; Blood Urea Nitrogen 27 mg/dL (7-17); Calcium 8.7 mg/dL (8.4-10.2); Carbon Dioxide 31 mmol/L (22-30); Chloride 94 mmol/L (98-107); Globulin 2.6 g/dL; Glucose 119 mg/dL (74-99); Magnesium 2.1 mg/dL (1.6-2.3); Non-African American GFR(CKD) 70 (>60 ml/min/1.73 sqM); Potassium 3.6 mmol/L (3.5-5.1); Sodium 130 mmol/L (137-145); Total Protein 5.0 g/dL (6.3-8.2)
--- NOTE | 2025-04-11 17:13 | P.PN ---
Subjective Progress Note Date: 04/11/25 Hospital course: Patient is a pleasant 85-year-old female with a past medical history of CAD, atrial fibrillation, previous pulmonary emboli, chronic systolic heart failure, hypertension, and anxiety with depression. She presented to the hospital on 04/08/2025 with a chief complaint of generalized weakness and fatigue accompanied by reports of diarrhea x 1 week. Upon arrival to our facility, patient underwent evaluation in the emergency department. Vital signs upon arrival show blood pressure 66/46, heart rate 71, respiratory rate 19, temp 98.7 F, SpO2 100% on 3 L. Labs completed and reviewed. CBC showing hemoglobin 10.3. Coagulation profile normal findings. BMP showing hypochloremic hyponatremia with chloride of 95 and sodium of 130 and elevated renal function with BUN of 49, creatinine 1.22, GFR 41 with baseline creatinine of 0.8. Patient was admitted under the services with consultation to general surgery.Abdominal X-ray completed showing borderline gaseous distention of the colon up to 5.9 cm with scattered mild stool air extending distally to the rectum, findings may reflect generalized ileus. CT abdomen and pelvis with IV contrast showing abnormal dis alfredo sigmoid colon and rectum with mild circumferential wall thickening and liquid stool more moderate wall thickening at rectum correlating for nonspecific infectious, inflammatory, or ischemic colitis. Physical exam: Patient was seen and fully evaluated at bedside this morning. She reports feeling much better today. She continues to deny having any abdominal pain, nausea, or vomiting. She is tolerating oral intake. Reports feeling more energetic. She denies having any headache, lightheadedness, dizziness, chest pain, or any other complaints. Vital signs reviewed General: Nontoxic, no distress and appears stated age. Derm: Skin warm and dry, normal coloration for ethnicity. Head: Atraumatic, normocephalic and symmetric. Eyes: EOM's intact, no lid lag, and anicteric sclera Mouth: no lip lesions, mucus membranes moist Cardiovascular: regular rate and rhythm with normal S1S2, no murmur, positive posterior tibial pulses bilaterally, and cap refill < 2 seconds. Lungs: Respirations even, regular, and unlabored on supplemental oxygen. Lungs diminished otherwise no rhonchi, no rales, no wheezing, and no accessory muscle usage. Abdominal: Obese abdomen, bowel sounds x 4, soft, nontender to palpation, no guarding, no appreciable organomegaly Ext: ROM intact. No gross muscle atrophy, no edema, no contractures Neuro: Speech clear, face symmetrical and CN II-XII grossly intact with no noted focal neuro deficits Psych: Alert and oriented to person, place, time, and situation. Appropriate and pleasant affect. Assessment and Plan of Care: C-Diff Colitis Sepsis, secondary to above Hypotension, recurrent episodes likely secondary to the severe dehydration resulting from above Failure to thrive with generalized weakness, likely secondary to the severe dehydration resulting from above Acute on chronic anemia Ruled out GI bleed, hgb stable no signs of GI bleeding at this time Acute kidney injury, secondary to above. Improved -Consult placed to general surgery, discussed plan of care with general surgery PA. -Patient to continue IV antibiotics with Rocephin 2 g daily and Flagyl 500 mg every 6 hours as insttructed by General Surgeon in addition to oral vancomycin 125 mg Q6 hours. . -Follow-up on blood culture results, -ESR 41, CRP 18.0, and repeat lactic acid was 1.1. -Trend hemoglobin every 6 hours, transfuse as needed for hemoglobin less than 7. -IV fluid bolus lactated Ringer's 1 L followed by maintenance infusion at 100 cc/h. -Hold Bumex, Metolazone and lisinopril secondary to MARC and recurrent episodes of hypotension. -Hold Eliquis pending further recommendations from general surgery team. Depression and feelings of hopelessness Reports of suicidal ideations -Per report, patient removed oxygen in the emergency department and stated she did not want to do this anymore. -Patient's daughter reports that patient has stated over the last week if there is a pill she could take to end her life she would do it because she wants to slit her throat. -Psychiatry evaluated recommending continuation of BuSpar 30 mg twice daily and started patient on Lexapro 5 mg daily clearing patient from psychiatry perspective. Paroxysmal atrial fibrillation CAD History of pulmonary emboli Chronic systolic heart failure Hypertension -Hold Eliquis pending repeat CBC and further recommendations from general surgeon. -Patient to continue daily medication regimen with carvedilol 25 mg twice daily with parameters placed to hold for systolic blood pressure less than 100. -Hold Bumex, Metolazone and lisinopril secondary to recurrent episodes of hypotension and acute kidney injury. -Telemetry monitoring. Data and imaging reviewed: Vital signs reviewed. Blood pressure 101/70, heart rate 99, respiratory rate 20, temp 97.6 F, and SpO2 of 98% on 3 L Labs reviewed. CBC showing stable hemoglobin of 9.6. BMP showing hyponatremia sodium of 130, hypochloremia with chloride of 94 and hypercarbia with bicarb of 31. MARC fully resolved with BUN of 27, creatinine 0.78, GFR of 70. Blood glucose 119. Magnesium 2.1. Liver profile unremarkable albumin remains low at 2.4. CODE STATUS: Full Cide DVT prophylaxis: FRANCISCA degroot/Luisa Discussed with: Patient, RN, and general surgery PA Anticipated discharge date: Pending placement in SNF Anticipated discharge place: senior care facility Patient was seen independently by Nurse Pracitioner. This document was prepared using [employer] ([employer]) dictation software. Please allow for errors in propulsion engineer, while rare they do occur. Adis Corley NP rendered care for this patient independently, reviewed the findings and plan as documented in the note above and agree with plan. I did not physically speak with or examine the patient on this date. . Objective - Vital Signs Vital signs: Vital Signs Temp 97.6 F 04/11/25 07:47 Pulse 99 04/11/25 07:47 Resp 20 04/11/25 07:47 BP 101/70 04/11/25 07:47 Pulse Ox 98 04/11/25 07:47 FiO2 Intake & Output 04/10/25 04/11/25 04/11/25 18:59 06:59 18:59 Other: # Voids 1 1 # Bowel Movements 1 1 - Labs CBC & Chem 7: 04/11/25 09:25 04/11/25 09:25 Labs: Microbiology - Last 24 Hours (Table) 04/09/25 11:30 Blood Culture - Preliminary Blood
[2025-04-11] MEDS: ZINC OXIDE PASTE (Z-GUARD) 1 APPLIC TOPICAL PRN (21:00)
[2025-04-12 08:02] LABS: HCT 30.1 % (37.2-46.3); HGB 9.3 g/dL (12.0-15.0); MCH 30.4 pg (27.0-32.0); MCHC 30.9 g/dL (32.0-37.0); MCV 98.4 FL (80.0-97.0); NRBC Per 100 WBC 0 X 10*3/uL (0.00-0.01); Platelet Count 224 X 10*3/uL (140-440); RBC 3.06 X 10*6/uL (4.10-5.20); RDW 13.7 % (11.5-14.5); WBC 6.62 X 10*3/uL (4.50-10.00)
[2025-04-12 10:49] LABS: ALT 7 U/L (8-44); AST 9 U/L (13-35); Albumin 2.4 g/dL (3.8-4.9); Albumin/Globulin Ratio 1.20 Ratio (1.60-3.17); Alkaline Phosphatase 38 U/L (41-126); Anion Gap 7.60 mmol/L (4.00-12.00); BUN/Creat Ratio 26.57 Ratio (12.00-20.00); Blood Urea Nitrogen 18.6 mg/dL (9.0-27.0); Calcium 8.1 mg/dL (8.7-10.3); Carbon Dioxide 28.4 mmol/L (21.6-31.8); Chloride 98 mmol/L (96-109); Globulin 2.0 g/dL (1.6-3.3); Glucose 89 mg/dL (70-110); Magnesium 1.9 mg/dL (1.5-2.4); Potassium 3.5 mmol/L (3.5-5.5); Sodium 134 mmol/L (135-145); Total Protein 4.4 g/dL (6.2-8.2)
--- NOTE | 2025-04-12 13:25 | P.PN ---
Progress Note - Text Progress Note Date: 04/12/25 Interval history: Patient was seen today for psychiatric follow-up as requested by primary team. Patient apparently has been having increasing depression and suicidal ideations. Apparently was having plans to cut her self and also overdose. Patient's nurse states that patient did state earlier this morning that she was still having suicidal thoughts to end her life. Patient was seen at the bedside today, she claims that she is still feeling a bit depressed, endorsing anxiety. She believ es that she "messed up" by mentioning that she was suicidal. Claims that it occurred mainly yesterday and also this morning no specific plans she states. Claims that she is not feeling well regarding her medical conditions and feels hopeless today. She is agreeable to have her medications adjusted and not reporting any side effects at this time. Claims that her sleep is poor appetite is fair. Denies any homicidal ideations denies any auditory or visual hallucinations. MENTAL STATUS EXAM: General Appearance: Patient appears to be overweight, short hair, appears to be fairly debilitated, stated age is alert, attempts to be cooperative. Patient appears to have fair hygiene and grooming wearing hospital gown with fair eye contact. Behavior: Patient is calmly lying in bed without any agitated behavior. Attempts to cooperate Speech: Patient's speech is fluent and nonpressured. Soft tone Mood/Affect: Patient reports their mood is "a bit depressed still", affect is congruent Suicidality/Homicidality: Patient denies having any homicidal ideation intent or plan. She was endorsing suicidal thoughts this morning and yesterday. Perceptions: Patient denies any visual hallucinations and denies any auditory hallucinations Though content/process: There is no evidence of any delusional thought content and thought process is linear and goal-directed. Memory and concentration: AOX3, grossly intact for the purposes of this session. Can spell "WORLD" backwards Judgment and insight: Fair IMPRESSIONS: Major depressive disorder, mild Suicidal ideations Anxiety disorder unspecified Anemia PLAN: -At this time patient DOES NOT meet criteria for inpatient psychiatric admission. -Delirium precautions recommended with patient including - avoiding use of narcotics and AWNINGS [employer]IC sedatives, limit anticholinergic medications when possible, frequent re-orientation, minimize use of restraints, open window shades during the day and close them at night -Would recommend the following medication changes/additions: BuSpar 30 mg twice daily for anxiety, increase Lexapro 10 mg daily for mood/anxiety. Added Remeron 7.5 mg nightly for insomnia/mood -direct support worker to provide patient with outpatient mental health/psychiatry resources for appropriate follow up upon discharge -continue 1:1 sitter for safety precautions and suicidal thoughts. -Communicated plan to patient's nurse -At this time psychiatry will continue to follow along to give clearance for patient to go to rehab. -Please contact with any questions.
[2025-04-12] MEDS: ESCITALOPRAM 5 MG TAB PO STA (13:53)
--- NOTE | 2025-04-12 17:02 | P.PN ---
Subjective Progress Note Date: 04/12/25 Hospital course: Patient is a pleasant 85-year-old female with a past medical history of CAD, atrial fibrillation, previous pulmonary emboli, chronic systolic heart failure, hypertension, and anxiety with depression. She presented to the hospital on 04/08/2025 with a chief complaint of generalized weakness and fatigue accompanied by reports of diarrhea x 1 week. Upon arrival to our facility, patient underwent evaluation in the emergency department. Vital signs upon arrival show blood pressure 66/46, heart rate 71, respiratory rate 19, temp 98.7 F, SpO2 100% on 3 L. Labs completed and reviewed. CBC showing hemoglobin 10.3. Coagulation profile normal findings. BMP showing hypochloremic hyponatremia with chloride of 95 and sodium of 130 and elevated renal function with BUN of 49, creatinine 1.22, GFR 41 with baseline creatinine of 0.8. Patient was admitted under the services with consultation to general surgery.Abdominal X-ray completed showing borderline gaseous distention of the colon up to 5.9 cm with scattered mild stool air extending distally to the rectum, findings may reflect generalized ileus. CT abdomen and pelvis with IV contrast showing abnormal dis alfredo sigmoid colon and rectum with mild circumferential wall thickening and liquid stool more moderate wall thickening at rectum correlating for nonspecific infectious, inflammatory, or ischemic colitis. Physical exam: Patient was seen and fully evaluated at bedside this morning. She reports feeling increased depression today and expressed to RN this morning that she was having thoughts of hurting herself again last night. Psychiatry was notified for reevaluation and possible adjustment of patient's medications. Patient otherwise denies having any headache, lightheadedness, chest pain, palpitations, shortness of breath, abdominal pain, nausea, vomiting, and reports improvement in the frequency of her diarrhea and nursing staff reporting thickening stool from previous watery/liquid stool. Vital signs reviewed General: Nontoxic, no distress and appears stated age. Derm: Skin warm and dry, normal coloration for ethnicity. Head: Atraumatic, normocephalic and symmetric. Eyes: EOM's intact, no lid lag, and anicteric sclera Mouth: no lip lesions, mucus membranes moist Cardiovascular: regular rate and rhythm with normal S1S2, no murmur, positive posterior tibial pulses bilaterally, and cap refill < 2 seconds. Lungs: Respirations even, regular, and unlabored on supplemental oxygen. Lungs diminished otherwise no rhonchi, no rales, no wheezing, and no accessory muscle usage. Abdominal: Obese abdomen, bowel sounds x 4, soft, nontender to palpation, no gu arding, no appreciable organomegaly Ext: ROM intact. No gross muscle atrophy, no edema, no contractures Neuro: Speech clear, face symmetrical and CN II-XII grossly intact with no noted focal neuro deficits Psych: Alert and oriented to person, place, time, and situation. Appropriate and pleasant affect. Assessment and Plan of Care: C-Diff Colitis Sepsis, secondary to above Hypotension, recurrent episodes likely secondary to the severe dehydration resulting from above Failure to thrive with generalized weakness, likely secondary to the severe dehydration resulting from above Acute on chronic anemia Ruled out GI bleed, hgb stable no signs of GI bleeding at this time Acute kidney injury, secondary to above. Resolved. -General Surgery following,, discussed plan of care with general surgery PA. -Patient to continue IV antibiotics with Rocephin 2 g daily and Flagyl 500 mg every 6 hours as insttructed by General Surgeon in addition to oral vancomycin 125 mg Q6 hours. . -Blood culture showing no growth -ESR 41, CRP 18.0, and repeat lactic acid was 1.1. -Hemoglobin has been trended closely and stable resulting at 10.3, 10.5, 9.6, 9.3, 9.2, 8.9, 9.6, and 9.3 this morning -IV fluid hydration with lactated Ringer's at 100 cc/h. -Hold Bumex, Metolazone and lisinopril secondary to initial MARC and recurrent episodes of hypotension. -Hold Eliquis pending clearance from general surgery team to resume. Depression and feelings of hopelessness Reports of suicidal ideations -Psychiatry evaluated recommending continuation of BuSpar 30 mg twice daily and started patient on Lexapro 5 mg daily and was renotified today for patient's reports of increased depression and again expressing suicidal ideations to nursing staff this morning. Paroxysmal atrial fibrillation CAD History of pulmonary emboli Chronic systolic heart failure Hypertension -Hold Eliquis per recommendations of general surgery team -Patient to continue daily medication regimen with carvedilol 25 mg twice daily with parameters placed to hold for systolic blood pressure less than 100. -Hold Bumex, Metolazone and lisinopril secondary to recurrent episodes of hypotension and acute kidney injury. -Telemetry monitoring. Data and imaging reviewed: Vital signs reviewed. Blood pressure soft this morning at 98/61, heart rate 75, respiratory rate 16, temp 97.7 F, and SpO2 of 97% on room air. Labs reviewed. CBC showing stable hemoglobin of 9.3. BMP showing hyponatremia sodium of 134 otherwise unremarkable. Blood glucose 89. Magnesium 1.9. Liver profile showing a low total bili of less than 0.2, AST of 9, ALT of 7, and alkaline phosphatase of 38. CODE STATUS: Full Cide DVT prophylaxis: FRANCISCA degroot/Luisa Discussed with: Patient, RN, psychiatrist and general surgery PA Anticipated discharge date: Pending placement in SNF Anticipated discharge place: senior living facility Patient was seen independently by Nurse Pracitioner. This document was prepared using [employer] dictation software. Please allow for er rors in well control instructor, while rare they do occur. Adis Corley NP rendered care for this patient independently, reviewed the findings and plan as documented in the note above and agree with plan. I did not physically speak with or examine the patient on this date. . Objective - Vital Signs Vital signs: Vital Signs Temp 97.7 F 04/12/25 07:46 Pulse 75 04/12/25 07:46 Resp 16 04/12/25 07:46 BP 98/61 04/12/25 07:46 Pulse Ox 97 04/12/25 07:46 FiO2 Intake & Output 04/11/25 04/12/25 04/12/25 18:59 06:59 18:59 Intake Total 3300 Output Total 4 Balance 3296 Intake: Intake, IV Titration 1200 Amount Lactated Ringers 1,000 ml 1200 @ 100 mls/hr IV .Q10H KASI Rx#:[id number] Oral 2100 Output: Urine/Stool Mix 4 Other: Voiding Method Diaper Diaper Diaper Incontinent Incontinent Incontinent # Voids 1 # Bowel Movements 2 1 - Labs CBC & Chem 7: 04/12/25 05:57 04/12/25 05:54 Labs: Abnormal Lab Results - Last 24 Hours (Table) 04/11/25 04/12/25 Range/Units 09:25 05:57 RBC 3.06 L (4.10-5.20) X 10*6/uL Hgb 9.3 L (12.0-15.0) g/dL Hct 30.1 L (37.2-46.3) % MCV 98.4 H (80.0-97.0) FL MCHC 30.9 L (32.0-37.0) g/dL Sodium 130 L (137-145) mmol/L Chloride 94 L (98-107) mmol/L Carbon Dioxide 31 H (22-30) mmol/L BUN 27 H (7-17) mg/dL Glucose 119 H (74-99) mg/dL Total Protein 5.0 L (6.3-8.2) g/dL Albumin 2.4 L (3.5-5.0) g/dL Microbiology - Last 24 Hours (Table) 04/09/25 11:30 Blood Culture - Preliminary Blood
[2025-04-12] MEDS: MIRTAZAPINE 15 MG TAB PO SCH (21:12)
[2025-04-13] MEDS: ESCITALOPRAM 10 MG TAB PO SCH (07:59)
[2025-04-13] MEDS: HYDROcodone/APAP 5-325MG 1 EACH TAB PO PRN (16:36)
--- NOTE | 2025-04-13 17:06 | P.PN ---
Subjective Progress Note Date: 04/13/25 Hospital course: Patient is a pleasant 85-year-old female with a past medical history of CAD, atrial fibrillation, previous pulmonary emboli, chronic systolic heart failure, hypertension, and anxiety with depression. She presented to the hospital on 04/08/2025 with a chief complaint of generalized weakness and fatigue accompanied by reports of diarrhea x 1 week. Upon arrival to our facility, patient underwent evaluation in the emergency department. Vital signs upon arrival show blood pressure 66/46, heart rate 71, respiratory rate 19, temp 98.7 F, SpO2 100% on 3 L. Labs completed and reviewed. CBC showing hemoglobin 10.3. Coagulation profile normal findings. BMP showing hypochloremic hyponatremia with chloride of 95 and sodium of 130 and elevated renal function with BUN of 49, creatinine 1.22, GFR 41 with baseline creatinine of 0.8. Patient was admitted under the services with consultation to general surgery.Abdominal X-ray completed showing borderline gaseous distention of the colon up to 5.9 cm with scattered mild stool air extending distally to the rectum, findings may reflect generalized ileus. CT abdomen and pelvis with IV contrast showing abnormal dis alfredo sigmoid colon and rectum with mild circumferential wall thickening and liquid stool more moderate wall thickening at rectum correlating for nonspecific infectious, inflammatory, or ischemic colitis. Physical exam: Patient was seen and fully evaluated at bedside this morning. She reports feeling a bit better today stating she slept well last night. She continues to deny having any abdominal pain or discomfort. Reports liquid stools continue to decrease in frequency. Patient denies having any other complaints, questions, needs, or concerns at this time. Awaiting clearance from psychiatry for transfer to SNF. Vital signs reviewed General: Nontoxic, no distress and appears stated age. Derm: Skin warm and dry, normal coloration for ethnicity. Head: Atraumatic, normocephalic and symmetric. Eyes: EOM's intact, no lid lag, and anicteric sclera Mouth: no lip lesions, mucus membranes moist Cardiovascular: regular rate and rhythm with normal S1S2, no murmur, positive posterior tibial pulses bilaterally, and cap refill < 2 seconds. Lungs: Respirations even, regular, and unlabored on supplemental oxygen. Lungs diminished otherwise no rhonchi, no rales, no wheezing, and no accessory muscle usage. Abdominal: Obese abdomen, bowel sounds x 4, soft, nontender to palpation, no guarding, no appreciable organomegaly Ext: ROM intact. No gross muscle atrophy, no edema, no contractures Neuro: Speech clear, face symmetrical and CN II-XII grossly intact with no noted focal neuro deficits Psych: Alert and oriented to person, place, time, and situation. Appropriate and pleasant affect. Assessment and Plan of Care: C-Diff Colitis Sepsis, secondary to above Hypotension, recurrent episodes likely secondary to the severe dehydration re sulting from above Failure to thrive with generalized weakness, likely secondary to the severe dehydration resulting from above Acute on chronic anemia Ruled out GI bleed, hgb stable no signs of GI bleeding at this time Acute kidney injury, secondary to above. Resolved. -General Surgery following,, discussed plan of care with general surgery PA. -Patient to continue IV antibiotics with Rocephin 2 g daily and Flagyl 500 mg every 6 hours as insttructed by General Surgeon in addition to oral vancomycin 125 mg Q6 hours. . -Blood culture showing no growth -ESR 41, CRP 18.0, and repeat lactic acid was 1.1. -Hemoglobin has been trended closely and stable resulting at 10.3, 10.5, 9.6, 9. 3, 9.2, 8.9, 9.6, and 9.3 this morning -IV fluid hydration with lactated Ringer's at 100 cc/h. -Hold Bumex, Metolazone and lisinopril secondary to initial MARC and recurrent episodes of hypotension. -Hold Eliquis pending clearance from general surgery team to resume. Depression and feelings of hopelessness Reports of suicidal ideations -Psychiatry evaluated recommending continuation of BuSpar 30 mg twice daily and increased Lexapro 10 mg daily and added on Remeron 7.5 mg nightly. Paroxysmal atrial fibrillation CAD History of pulmonary emboli Chronic systolic heart failure Hypertension -Hold Eliquis per recommendations of general surgery team -Patient to continue daily medication regimen with carvedilol 25 mg twice daily with parameters placed to hold for systolic blood pressure less than 100. -Hold Bumex, Metolazone and lisinopril secondary to recurrent episodes of hypotension and acute kidney injury. -Telemetry monitoring. Data and imaging reviewed: Vital signs reviewed. Blood pressure 146/76, heart rate 68, respiratory rate 16, temp 97.7 F, and SpO2 of 97% on room air. Labs reviewed. CBC showing stable hemoglobin of 9.3. BMP showing hyponatremia sodium of 134 otherwise unremarkable. Blood glucose 89. Magnesium 1.9. Liver profile showing a low total bili of less than 0.2, AST of 9, ALT of 7, and alkaline phosphatase of 38. CODE STATUS: Full Cide DVT prophylaxis: FRANCISCA degroot/KATYs Discussed with: Patient, RN, psychiatrist and general surgery PA Anticipated discharge date: Pending placement in SNF Anticipated discharge place: [facility] facility Patient was seen independently by Nurse Pracitioner. This document was prepared using [employer] dictation software. Please allow for errors in film coater, while rare they do occur. Adis Corley NP rendered care for this patient independently, reviewed the findings and plan as documented in the note above and agree with plan. I did not physically speak with or examine the patient on this date. . Objective - Vital Signs Vital signs: Vital Signs Temp 97.7 F 04/13/25 08:00 Pulse 68 04/13/25 08:00 Resp 16 04/13/25 08:00 BP 146/76 04/13/25 08:00 Pulse Ox 97 04/13/25 08:00 FiO2 Intake & Output 04/12/25 04/13/25 04/13/25 18:59 06:59 18:59 Intake Total 1080 Output Total 3 Balance 1077 Intake: Oral 1080 Output: Urine/Stool Mix 3 Other: Voiding Method Diaper Diaper Diaper Incontinent Incontinent Incontinent # Voids 2 # Bowel Movements 1 1 - Labs CBC & Chem 7: 04/12/25 05:57 04/12/25 05:54 Labs: Abnormal Lab Results - Last 24 Hours (Table) 04/12/25 Range/Units 05:54 Sodium 134 L (135-145) mmol/L BUN/Creatinine Ratio 26.57 H (12.00-20.00) Ratio Calcium 8.1 L (8.7-10.3) mg/dL Total Bilirubin <0.2 L (0.3-1.2) mg/dL AST 9 L (13-35) U/L ALT 7 L (8-44) U/L Alkaline Phosphatase 38 L (41-126) U/L Total Protein 4.4 L (6.2-8.2) g/dL Albumin 2.4 L (3.8-4.9) g/dL Albumin/Globulin Ratio 1.20 L (1.60-3.17) Ratio Microbiology - Last 24 Hours (Table) 04/09/25 11:30 Blood Culture - Preliminary Blood
--- NOTE | 2025-04-13 19:48 | P.PN ---
Progress Note - Text Progress Note Date: 04/13/25 Interval history: Patient was seen today for psychiatric follow-up as requested by primary team. Patient was found to be calm, resting in bed with sitter at bedside. She reports she is feeling much better today, denies SI, intent or plan, and reports her previous suicidal statements were out of frustration and she regrets those statements. She states she is able to keep herself safe without the assistance of a 1:1 staff. She reports she is sleeping better on the Remeron and denies any side effects today. She denies any homicidal ideation, denies any auditory or visual hallucinations. MENTAL STATUS EXAM: General Appearance: Patient appears to be overweight, stated age, fair hygiene and grooming wearing hospital gown with average eye contact. Behavior: Patient is calmly lying in bed without any agitated behavior. Attempts to cooperate Speech: Patient's speech is fluent and non-pressured. Normal tone Mood/Affect: Patient reports their mood is "much better", affect is congruent Suicidality/Homicidality: Patient denies having any homicidal ideation intent or plan. She denies suicidal ideation, plan or intent. Perceptions: Patient denies any visual hallucinations and denies any auditory hallucinations Though content/process: There is no evidence of any delusional thought content and thought process is linear and goal-directed. Memory and concentration: AOX3, grossly intact for the purposes of this session. Judgment and insight: Fair IMPRESSIONS: Major depressive disorder, mild Suicidal ideations - resolved Anxiety disorder unspecified Anemia PLAN: -At this time patient DOES NOT meet criteria for inpatient psychiatric admission. -Delirium precautions recommended with patient including - avoiding use of narcotics and [employer] sedatives, limit anticholinergic medications when possible, frequent re-orientation, minimize use of restraints, open window shades during the day and close them at night -Would recommend the following medication changes/additions: Continue BuSpar 30 mg twice daily for anxiety, Continue Lexapro 10 mg daily for mood/anxiety. Continue Remeron 7.5 mg nightly for insomnia/mood -wardrobe specialty worker to provide patient with outpatient mental health/psychiatry resources for appropriate follow up upon discharge -Can discontinue 1:1 sitter at this time. Continue to reevaluate safety and reinstate 1:1 sitter if safety concerns arise. -Communicated plan to patient's nurse -Psychiatry will sign off at this time. -Please contact with any questions.
[2025-04-13] MEDS: APIXABAN 5 MG TAB PO SCH (20:36)
[2025-04-14 09:50] LABS: HCT 30.2 % (37.2-46.3); HGB 9.4 g/dL (12.0-15.0); MCH 30.6 pg (27.0-32.0); MCHC 31.1 g/dL (32.0-37.0); MCV 98.4 FL (80.0-97.0); NRBC Per 100 WBC 0 X 10*3/uL (0.00-0.01); Platelet Count 223 X 10*3/uL (140-440); RBC 3.07 X 10*6/uL (4.10-5.20); RDW 13.7 % (11.5-14.5); WBC 7.09 X 10*3/uL (4.50-10.00)
[2025-04-14 10:00] LABS: Anion Gap 7.10 mmol/L (4.00-12.00); BUN/Creat Ratio 16.00 Ratio (12.00-20.00); Blood Urea Nitrogen 9.6 mg/dL (9.0-27.0); Calcium 7.8 mg/dL (8.7-10.3); Carbon Dioxide 29.9 mmol/L (21.6-31.8); Chloride 99 mmol/L (96-109); Glucose 81 mg/dL (70-110); Magnesium 1.7 mg/dL (1.5-2.4); Potassium 3.5 mmol/L (3.5-5.5); Sodium 136 mmol/L (135-145)
--- NOTE | 2025-04-14 16:20 | P.PN ---
Progress Note - Text Progress Note Date: 04/14/25 HISTORY OF PRESENT ILLNESS: No acute events overnight. No further episodes of diarrhea PHYSICAL EXAM: VITAL SIGNS: Reviewed. GENERAL: no acute distress. HEENT: No sclera icterus. Extraocular movements grossly intact. Moist buccal mucosa. Head is atraumatic, normocephalic. ABDOMEN: Soft. Nondistended. Nontender. NEUROLOGIC: Alert and oriented. Cranial nerves II through XII grossly intact. ASSESSMENT: 1. C. difficile colitis 2. Anemia with no active bleeding PLAN: - Regular Diet - Abx per primary - No acute surgical intervention Torin Marks DO [facility] [phone]
--- NOTE | 2025-04-14 17:17 | P.PN ---
Subjective Progress Note Date: 04/14/25 Hospital course: Patient is a pleasant 85-year-old female with a past medical history of CAD, atrial fibrillation, previous pulmonary emboli, chronic systolic heart failure, hypertension, and anxiety with depression. She presented to the hospital on 04/08/2025 with a chief complaint of generalized weakness and fatigue accompanied by reports of diarrhea x 1 week. Upon arrival to our facility, patient underwent evaluation in the emergency department. Vital signs upon arrival show blood pressure 66/46, heart rate 71, respiratory rate 19, temp 98.7 F, SpO2 100% on 3 L. Labs completed and reviewed. CBC showing hemoglobin 10.3. Coagulation profile normal findings. BMP showing hypochloremic hyponatremia with chloride of 95 and sodium of 130 and elevated renal function with BUN of 49, creatinine 1.22, GFR 41 with baseline creatinine of 0.8. Patient was admitted under the services with consultation to general surgery.Abdominal X-ray completed showing borderline gaseous distention of the colon up to 5.9 cm with scattered mild stool air extending distally to the rectum, findings may reflect generalized ileus. CT abdomen and pelvis with IV contrast showing abnormal dis alfredo sigmoid colon and rectum with mild circumferential wall thickening and liquid stool more moderate wall thickening at rectum correlating for nonspecific infectious, inflammatory, or ischemic colitis. Physical exam: Patient was seen and fully evaluated at bedside this morning. She reports feeling a bit better today. She was visiting with her family members at bedside. Patient reports again having a good nights rest. She denies having any current thoughts of hurting herself denying suicidal ideations at this time. Patient continues to deny having any nausea or vomiting and tolerating oral intake. Vital signs reviewed General: Nontoxic, no distress and appears stated age. Derm: Skin warm and dry, normal coloration for ethnicity. Head: Atraumatic, normocephalic and symmetric. Eyes: EOM's intact, no lid lag, and anicteric sclera Mouth: no lip lesions, mucus membranes moist Cardiovascular: regular rate and rhythm with normal S1S2, no murmur, positive posterior tibial pulses bilaterally, and cap refill < 2 seconds. Lungs: Respirations even, regular, and unlabored on supplemental oxygen. Lungs diminished otherwise no rhonchi, no rales, no wheezing, and no accessory muscle usage. Abdominal: Obese abdomen, bowel sounds x 4, soft, nontender to palpation, no guarding, no appreciable organomegaly Ext: ROM intact. No gross muscle atrophy, no edema, no contractures Neuro: Speech clear, face symmetrical and CN II-XII grossly intact with no noted focal neuro deficits Psych: Alert and oriented to person, place, time, and situation. Appropriate and pleasant affect. Assessment and Plan of Care: C-Diff Colitis Sepsis, secondary to above Hypotension, recurrent episodes likely secondary to the severe dehydration resulting from above Failure to thrive with generalized weakness, likely secondary to the severe dehydration resulting from above Acute on chronic anemia Ruled out GI bleed, hgb stable no signs of GI bleeding at this time Acute kidney injury, secondary to above. Resolved. -General Surgery following,, discussed plan of care with general surgeon, okay to resume regular diet. -Patient to continue oral vancomycin 125 mg Q6 hours. . Day 6 of 10 -Blood culture showing no growth -ESR 41, CRP 18.0, and repeat lactic acid was 1.1. -Hemoglobin remains stable this morning since resumption of Eliquis and is currently 9.4. -IV fluid discontinued as patient is tolerating regular diet. -Hold Bumex, Metolazone and lisinopril secondary to initial MARC and recurrent episodes of hypotension. -Hold Eliquis pending clearance from general surgery team to resume. Depression and feelings of hopelessness Reports of suicidal ideations -Psychiatry evaluated recommending continuation of BuSpar 30 mg twice daily and increased Lexapro 10 mg daily and added on Remeron 7.5 mg nightly. Paroxysmal atrial fibrillation CAD History of pulmonary emboli Chronic systolic heart failure Hypertension -Patient to continue daily medication regimen with Eliquis 5 mg twice daily, ca rvedilol 25 mg twice daily with parameters placed to hold for systolic blood pressure less than 100. -Hold Bumex, Metolazone and lisinopril secondary to recurrent episodes of hypotension and acute kidney injury. -Telemetry monitoring. Data and imaging reviewed: Vital signs reviewed. Blood pressure 127/85, heart rate 67, respiratory rate 18, temp 97.5 F, and SpO2 of 99% on 2 L. Labs reviewed. CBC showing stable hemoglobin of 9.4. BMP unremarkable. Magnesium slightly low at 1.7. CODE STATUS: Full Cide DVT prophylaxis: FRANCISCA degroot/SCDs Discussed with: Patient, RN, psychiatrist and general surgery PA Anticipated discharge date: Pending placement in SNF, likely tomorrow Anticipated discharge place: long term facility Patient was seen independently by Nurse Pracitioner. This document was prepared using [employer] dictation software. Please allow for errors in home attendant, while rare they do occur. Adis Corley SHEEP KILLER rendered care for this patient independently, reviewed the findings and plan as documented in the note above and agree with plan. I did not physically speak with or examine the patient on this date. . Objective - Vital Signs Vital signs: Vital Signs Temp 97.5 F L 04/14/25 07:56 Pulse 67 04/14/25 07:56 Resp 18 04/14/25 07:56 BP 127/85 04/14/25 07:56 Pulse Ox 99 04/14/25 07:56 FiO2 Intake & Output 04/13/25 04/14/25 04/14/25 18:59 06:59 18:59 Intake Total 250 Balance 250 Intake: Oral 250 Other: Voiding Method Diaper Incontinent # Voids 3 # Bowel Movements 3 - Labs CBC & Chem 7: 04/14/25 05:58 04/14/25 05:58 Labs: Abnormal Lab Results - Last 24 Hours (Table) 04/14/25 04/14/25 Range/Units 05:58 05:58 RBC 3.07 L (4.10-5.20) X 10*6/uL Hgb 9.4 L (12.0-15.0) g/dL Hct 30.2 L (37.2-46.3) % MCV 98.4 H (80.0-97.0) FL MCHC 31.1 L (32.0-37.0) g/dL Calcium 7.8 L (8.7-10.3) mg/dL
[2025-04-14] MEDS: MAGNESIUM SULFATE-D5W PMX 1 GM in DEXTROSE/WATER 1 100ML.BAG IVPB SCH (17:30)
[2025-04-15 07:23] VITALS: RESP 20
--- NOTE | 2025-04-15 12:39 | P.DS ---
Providers Date of admission: 04/08/25 22:50 Expected date of discharge: 04/15/25 Attending physician: Jeovany Rivera MD Consults: 04/08/25 22:44 Consult Physician Routine Consulting Provider: Psychiatry - [facility] Psychiatry Consult Reason/Comments: depressionSI Do you want consulting provider notified?: Yes 04/09/25 06:20 Consult Physician Routine Consulting Provider: Leander Caballero Consult Reason/Comments: acute anemia Do you want consulting provider notified?: Yes, Notify in am Primary care physician: Physician Nonstaff Hospital Course: Discharge Diagnosis: C-Diff Colitis. Patient completed 6-day course of oral vancomycin and being discharged home on an additional 4-day course of to complete a 10-day course of antibiotics for treatment of C. difficile infection. Instructed to continue to hold Bumex and metolazone until diarrhea fully resolves. Sepsis, secondary to above Hypotension, recurrent episodes likely secondary to the severe dehydration resulting from above. Resolved. Failure to thrive with generalized weakness, likely secondary to the severe dehydration resulting from above. Acute on chronic anemia. Hemoglobin has remained stable and trended since restarting Eliquis. Hemoglobin on discharge 9.4. Ruled out GI bleed, hgb stable no signs of GI bleeding at this time. Acute kidney injury, secondary to above. Resolved. Depression and feelings of hopelessness with Reports of suicidal ideations. Psychiatry evaluated recommending continuation of BuSpar 30 mg twice daily and increased Lexapro 10 mg daily and added on Remeron 7.5 mg nightly. Paroxysmal atrial fibrillation. Patient to continue daily medication regimen with Eliquis 5 mg twice daily and carvedilol 25 mg twice daily with parameters placed to hold for systolic blood pressure less than 100. CAD. Patient to continue daily medication regimen with Eliquis 5 mg twice daily and carvedilol 25 mg twice daily with parameters placed to hold for systolic blood pressure less than 100. History of pulmonary emboli. Patient to continue daily medication regimen with Eliquis 5 mg twice daily. Chronic systolic heart failure. Instructed to continue to hold Bumex and metolazone until diarrhea fully resolves. Hypertension. Patient to continue daily medication regimen with carvedilol 25 mg twice daily with parameters placed to hold for systolic blood pressure less than 100. Hospital Course: Patient is a pleasant 85-year-old female with a past medical history of CAD, atrial fibrillation, previous pulmonary emboli, chronic systolic heart failure, hypertension, and anxiety with depression. She presented to the hospital on 04/08/2025 with a chief complaint of generalized weakness and fatigue accompanied by reports of diarrhea x 1 week. Upon arrival to our facility, patient underwent evaluation in the emergency department. Vital signs upon arrival show blood pressure 66/46, heart rate 71, respiratory rate 19, temp 98.7 F, SpO2 100% on 3 L. Labs completed and reviewed. CBC showing hemoglobin 10.3. Coagulation profile normal findings. BMP showing hypochloremic hyponatremia with chloride of 95 and sodium of 130 and elevated renal function with BUN of 49, creatinine 1.22, GFR 41 with baseline creatinine of 0.8. Patient was admitted under the services with consultation to general surgery.Abdominal X-ray completed showing borderline gaseous distention of the colon up to 5.9 cm with scattered mild stool air extending distally to the rectum, findings may reflect generalized ileus. CT abdomen and pelvis with IV contrast showing abnormal distal sigmoid colon and rectum with mild circumferential wall thickening and liquid stool more moderate wall thickening at rectum correlating for nonspecific infectious, inflammatory, or ischemic colitis. Patient was admitted under services with consultation to general surgery. C. difficile culture was positive. IV antibiotics were discontinued and patient started on oral vancomycin. Patient has completed a 6-day course of oral vancomycin and being discharged home on an additional 4-day course of to complete a 10-day course of antibiotics for treatment of C. difficile infection. She was cleared from general surgery perspective for discharge. Instructed to continue to hold Bumex and metolazone until diarrhea fully resolves. Patient is medically optimized for discharge at this time. She was evaluated by PT/OT and recommended for placement secondary to weakness/fatigue and deconditioning resulting from above infection. Patient being transferred to [facility] nursing [facility]. Physical exam: Vital signs reviewed General: Nontoxic, no distress and appears stated age. Derm: Skin warm and dry, normal coloration for ethnicity. Head: Atraumatic, normocephalic and symmetric. Eyes: EOM's intact, no lid lag, and anicteric sclera Mouth: no lip lesions, mucus membranes moist Cardiovascular: regular rate and rhythm with normal S1S2, no murmur, positive posterior tibial pulses bilaterally, and cap refill < 2 seconds. Lungs: Respirations even, regular, and unlabored on supplemental oxygen. Lungs diminished otherwise no rhonchi, no rales, no wheezing, and no accessory muscle usage. Abdominal: Obese abdomen, bowel sounds x 4, soft, nontender to palpation, no guarding, no appreciable organomegaly Ext: ROM intact. No gross muscle atrophy, no edema, no contractures Neuro: Speech clear, face symmetrical and CN II-XII grossly intact with no noted focal neuro deficits Psych: Alert and oriented to person, place, time, and situation. Appropriate and pleasant affect. A total of 35 minutes of time were spent preparing this complex discharge summary. Pt was discharged on 10/16/2024 at 11:09 AM. Patient was seen independently by Nurse Practitioner. This document was prepared using [employer] dictation software. Please allow for errors in appliance repair technician while rare they do occur. Adis Corley NP rendered care for this patient independently, reviewed the findings and plan as documented in the note above. I did not physically speak with or examine the patient on this date. Patient Condition at Discharge: Stable Plan - Discharge Summary New Discharge Prescriptions: New Escitalopram [Lexapro] 10 mg PO DAILY tab Melatonin 3 mg PO HS PRN tab PRN Reason: Insomnia Pantoprazole [Protonix] 40 mg PO AC-BID tab Mirtazapine [Remeron] 7.5 mg PO HS tab Vancomycin Oral Solution [Vancomycin HCl Oral Soln] 125 mg PO Q6HR 4 Days #40 ml Continue carvediloL [Coreg] 25 mg PO BID Acetaminophen Tab [Tylenol] 975 mg PO TID Gabapentin [Neurontin] 800 mg PO TID busPIRone HCL [Buspar] 30 mg PO BID Apixaban [Eliquis] 5 mg PO BID Cholecalciferol (Vitamin D3) [Vitamin D3 (50 Mcg = 2000 Iu)] 50 mcg PO DAILY Discontinued ALPRAZolam [Xanax XR] 0.5 mg PO MOWEFR@0900 lisinopriL [Zestril] 10 mg PO DAILY PRN PRN Reason: bp 145/90 and over Potassium Chloride ER [K-Dur 10] 10 meq PO BID No Action Bumetanide [BUMEX] 1 mg PO DAILY metOLazone [Zaroxolyn] 2.5 mg PO MOTH Discharge Medication List Bumetanide [BUMEX] 1 mg PO DAILY 09/25/23 [History] carvediloL [Coreg] 25 mg PO BID 09/25/23 [History] Acetaminophen Tab [Tylenol] 975 mg PO TID 03/07/25 [History] Apixaban [Eliquis] 5 mg PO BID 03/07/25 [History] Gabapentin [Neurontin] 800 mg PO TID 03/07/25 [History] busPIRone HCL [Buspar] 30 mg PO BID 03/07/25 [History] metOLazone [Zaroxolyn] 2.5 mg PO MOTH 03/07/25 [History] Cholecalciferol (Vitamin D3) [Vitamin D3 (50 Mcg = 2000 Iu)] 50 mcg PO DAILY 03/18/25 [History] Escitalopram [Lexapro] 10 mg PO DAILY tab 04/15/25 [Rx] Melatonin 3 mg PO HS PRN tab 04/15/25 [Rx] Mirtazapine [Remeron] 7.5 mg PO HS tab 04/15/25 [Rx] Pantoprazole [Protonix] 40 mg PO AC-BID tab 04/15/25 [Rx] Vancomycin Oral Solution [Vancomycin HCl Oral Soln] 125 mg PO Q6HR 4 Days #40 ml 04/15/25 [Rx] Follow up Appointment(s)/Referral(s): Nonstaff,Physician [Primary Care Provider] - 1-2 days Activity/Diet/Wound Care/Special Instructions: Continue to hold diuretics, Bumex and metolazone until diarrhea fully resolves and then may resume as scheduled. Discharge Disposition: TRANSFER TO SNF/ECF
[2025-04-15 14:18] VITALS: BP 109/65; PULSE 85; TEMP 98.1
== END 2025-04-15 14:39 | DRG 872 ==
LOC: EC 19:46 → 5NMEDONC 22:49 → OBSVTOIN 22:50 → 5NMEDONC 04-09 00:24
PROVIDERS: ADMIT Internal Medicine; ATTEND Internal Medicine
DX: A41.4 Sepsis due to anaerobes (principal); A04.72 Enterocolitis due to Clostridium difficile, not specified as recurrent; I50.22 Chronic systolic (congestive) heart failure; I11.0 Hypertensive heart disease with heart failure; R62.7 Adult failure to thrive; F32.0 Major depressive disorder, single episode, mild; D64.9 Anemia, unspecified; E87.1 Hypo-osmolality and hyponatremia; R45.851 Suicidal ideations; N17.9 Acute kidney failure, unspecified; I48.0 Paroxysmal atrial fibrillation; E86.0 Dehydration; F41.9 Anxiety disorder, unspecified; Z74.09 Other reduced mobility; E87.8 Other disorders of electrolyte and fluid balance, not elsewhere classified; I25.10 Atherosclerotic heart disease of native coronary artery without angina pectoris; I25.2 Old myocardial infarction; Z79.01 Long term (current) use of anticoagulants; Z79.899 Other long term (current) drug therapy; Z86.711 Personal history of pulmonary embolism; Z87.891 Personal history of nicotine dependence; Z88.8 Allergy status to other drugs, medicaments and biological substances
CPT/HCPCS: 36415; 74018; 74177; 80048; 80053; 82140; 82272; 82533; 83605; 83735; 84100; 84484; 85025; 85027; 85610; 85652; 85730; 86140; 87040; 87324; 94760; 96361; 96374; 99285